=== PATIENT | male | born 1940 | race American Indian/Alaskan Native ===

== ENCOUNTER 2017-12-20 17:48 | Inpatient (IN) ==
[2017-12-20] MEDS ORDERED: LACTATED RINGERS 1,000 ML IV ONE (17:55)
[2017-12-20] MEDS ORDERED: methylPREDNISolone SOD SUCC 125 MG/2 ML VIAL IV ONE (18:06)
[2017-12-20] MEDS ORDERED: IPRATROPIUM/ALBUTEROL 3 ML AMPUL.NEB NEB ONE (18:06)
[2017-12-20] MEDS ORDERED: PIPERACILLIN SODIUM/TAZOBACTAM 3.375 GM in DEXTROSE 5% IN WATER 50 ML IV ONE (18:11)
--- NOTE | 2017-12-20 18:19 | Emergency Department Note ---
SOB HPI - General Chief Complaint: Shortness of Breath/Dyspnea Stated Complaint: sob, pos asp Time Seen by Provider: 12/20/17 18:07 Source: patient Mode of arrival: wheelchair Limitations: no limitations - History of Present Illness 77-year-old male presents with shortness of breath that has been worsening since yesterday. Apparently 2 days ago he was eating and choked on some food. He has a history of aspiration pneumonia. He states yesterday he started having significant shortness of breath. He states the last couple months he has had unexplained weight loss and is trying to eat but cannot get proper nutrition. 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 Verdin says he needs to eat small amounts frequently. He has emphysema and is very thin. He states he has shortness of breath on exertion and he also has some swelling in his lower extremities at this time. He denies any abdominal pain. He states he is getting dizzy when he stands up. He comes from [facility] and he was seen there today having low blood pressures. He is tachycardic at this time, tachypnea, and has an increased temperature at 99.8. This patient screens for sepsis. He is also had a productive frothy cough for the last couple of days - Related Data Home Medications Medication Instructions Recorded Confirmed Tiotropium [place] [Spiriva] 18 mcg INH DAILY 01/11/15 12/20/17 ergocalciferol (vitamin D2) 50,000 50,000 unit PO QWEEK 11/28/16 12/20/17 unit capsule Albuterol Sulfate [Proair Hfa] 8.5 gm IH Q4-6HP PRN 12/20/17 12/20/17 Docusate Sodium [Colace] 100 mg PO DAILY 12/20/17 12/20/17 Polyethylene Glycol 1000 500 gm PO QDAY 12/20/17 12/20/17 [Polyethylene Glycol] guaiFENesin/DEXTROMETHORPHAN 10 ml PO Q4-6HP PRN 12/20/17 12/20/17 [Guaiasorb Dm Liquid] Previous Rx's Medication Instructions Recorded omeprazole 40 mg capsule,delayed 40 mg PO QDAY #30 cap 07/25/17 release Allergies Allergy/AdvReac Type Severity Reaction Status Date / Time No Known Drug Allergies Allergy Verified 08/21/17 15:34 Review of Systems All systems ED: reviewed and negative except as stated. Past Medical History - Past Medical History Medical history: Reports: COPD (Emphysema with multiple lung nodules), other ( Poor nutrition, underweight, GERD, constipation, inguinal hernia). Denies: CHF Psychiatric history: Reports: no psych history Surgical history ED: Reports: non-contributory Family history: Reports: non-contributory - Social History smoking status: Former smoker Physical Exam Limitations: no limitations General appearance: alert, in distress (Tachypnea ), other (Underweight) Head: atraumatic Eye: Present: normal appearance. Absent: conjunctival injection Neck: Present: full ROM Chest: Present: normal inspection, symmetric chest wall rise Respiratory: Present: respiratory distress, wheezes (all alvarado), accessory muscle use Cardiovascular: Present: tachycardia, normal heart sounds Abdominal: Present: soft, normal bowel sounds. Absent: tenderness Extremities: Present: pedal edema (Around ankles no tibial edema) Neurological: Present: alert, oriented X3 Psychiatric: Present: normal affect, normal mood Skin: Present: warm, dry, intact Course Vital Signs Temperature 99.8 F H 12/20/17 17:48 Pulse Rate 117 H 12/20/17 17:48 Respiratory Rate 44 H 12/20/17 17:48 Blood Pressure 113/79 12/20/17 17:48 Pulse Oximetry (%) 91 12/20/17 17:48 Temperature 98.4 F 12/20/17 19:47 Pulse Rate 116 H 12/20/17 19:14 Respiratory Rate 26 H 12/20/17 19:14 Blood Pressure 109/72 12/20/17 19:14 Pulse Oximetry (%) 96 12/20/17 19:14 Shortness of Breath/Dyspnea - [facility] Narrative Medical decision making narrative: To the patient's severe emphysema, tachypnea, tachycardia, and increased work of breathing she will be admitted. Possible pneumonia on his chest x-ray. He was feeling better after Solu-Medrol and DuoNeb. At one time he needed 1 L of oxygen due to low oxygen saturations but when sitting up he was able to maintain around 95% - Lab Data Lab results reviewed: Yes I reviewed the patient's lab results. Result diagrams: 12/20/17 18:09 12/20/17 18:09 Lab Results 12/20/17 12/20/17 12/20/17 Range/Units 18:09 18:09 18:09 WBC 4.9 (4.5-11.0) K/mcL RBC 4.46 L (4.50-5.90) M/mcL Hgb 13.7 (13.5-16.5) g/dL Hct 41.0 (41.0-55.0) % MCV 91.8 (80.0-100.0) fL MCH 30.8 (26.0-34.0) pg MCHC 33.6 (31.0-36.0) g/dL RDW 14.4 (11.5-14.5) % Plt Count 249 (140-440) K/mcL MPV 7.6 (7.4-10.4) fL Total Counted 100 Seg Neutrophils % 85 H (38-78) % Band Neutrophils % 3 (0-10) % Lymphocytes % 9 L (15-49) % Monocytes % (Manual) 3 (1-12) % Platelet Estimate Normal (NORMAL) RBC Morphology Normal (NORMAL) VBG Lactic Acid 1.9 (0.5-2.2) mmol/L Sodium 135 (133-145) mmol/L Potassium 4.0 (3.3-5.1) mmol/L Chloride 95 L (96-108) mmol/L Carbon Dioxide 30 (22-30) mmol/L Anion Gap 10.0 (8-16) BUN 7 L (8-23) mg/dl Creatinine 0.6 L (0.7-1.2) mg/dl GFR Calculation 97 Glucose 88 (70-105) mg/dL Calcium 9.0 (8.6-10.4) mg/dl Total Bilirubin 0.9 (0.0-1.0) mg/dL AST 101 H (0-37) U/l ALT 191 H (0-40) U/l Alkaline Phosphatase 107 (39-117) U/L Troponin T (0-0.03) ng/ml NT-Pro-B Natriuret Pep 184.4 (0-450) pg/ml Total Protein 7.0 (5.9-8.4) gm/dL Albumin 3.4 (3.2-5.2) gm/dL Globulin 3.6 (2.2-3.7) gm/dL Albumin/Globulin Ratio 0.9 L (1.0-2.3) Procalcitonin (<0.10) ng/mL 12/20/17 12/20/17 Range/Units 18:09 18:09 WBC (4.5-11.0) K/mcL RBC (4.50-5.90) M/mcL Hgb (13.5-16.5) g/dL Hct (41.0-55.0) % MCV (80.0-100.0) fL MCH (26.0-34.0) pg MCHC (31.0-36.0) g/dL RDW (11.5-14.5) % Plt Count (140-440) K/mcL MPV (7.4-10.4) fL Total Counted Seg Neutrophils % (38-78) % Band Neutrophils % (0-10) % Lymphocytes % (15-49) % Monocytes % (Manual) (1-12) % Platelet Estimate (NORMAL) RBC Morphology (NORMAL) VBG Lactic Acid (0.5-2.2) mmol/L Sodium (133-145) mmol/L Potassium (3.3-5.1) mmol/L Chloride (96-108) mmol/L Carbon Dioxide (22-30) mmol/L Anion Gap (8-16) BUN (8-23) mg/dl Creatinine (0.7-1.2) mg/dl GFR Calculation Glucose (70-105) mg/dL Calcium (8.6-10.4) mg/dl Total Bilirubin (0.0-1.0) mg/dL AST (0-37) U/l ALT (0-40) U/l Alkaline Phosphatase (39-117) U/L Troponin T < 0.01 (0-0.03) ng/ml NT-Pro-B Natriuret Pep (0-450) pg/ml Total Protein (5.9-8.4) gm/dL Albumin (3.2-5.2) gm/dL Globulin (2.2-3.7) gm/dL Albumin/Globulin Ratio (1.0-2.3) Procalcitonin < 0.10 (<0.10) ng/mL - Radiology Data Radiology results reviewed: Yes I reviewed the patient's radiology results. 1. Severe emphysematous change and findings consistent with pulmonary fibrosis 2. Increased apical and basilar parenchymal densities. Progressive pulmonary fibrosis or superimposed pneumonia possible. Clinical correlation follow-up radiograph is necessary. - EKG Data EKG attestation: Yes I reviewed and interpreted this EKG. EKG results narrative: Sinus tachycardia with no ischemic changes. Disposition Pt seen by [employer]BASS[employer]OR/PA only: No Clinical Impression: Acute exacerbation of chronic obstructive airways disease, Hypoxia Disposition: Xfer As Inpt ([facility]) Condition: Fair Referrals: Barrington Zhang MD [Primary Care Provider] -
[2017-12-20] MEDS ORDERED: ACETAMINOPHEN 650 MG SUPP.RECT PR ONE (18:21)
--- NOTE | 2017-12-20 18:27 | XRay Report ---
INDICATION: Dyspnea. Tachypnea. History of emphysema. TECHNIQUE: AP chest x-ray, portable semiupright COMPARISON: Previous examinations dated 10/24/2017, 06/19/2017, 09/19/2016. FINDINGS: Severe emphysema and probable pulmonary fibrosis. Increased parenchymal density in the right and left lung apices and at both lung bases. Findings may be due to progressive pulmonary fibrosis but superimposed pneumonia is possible. Clinical correlation follow-up radiographs recommended. No change in heart size. No evidence for significant pleural effusion. IMPRESSION: 1. Severe emphysematous change and findings consistent with pulmonary fibrosis 2. Increased apical and basilar parenchymal densities. Progressive pulmonary fibrosis or superimposed pneumonia possible. Clinical correlation follow-up radiograph is necessary. Interpreted and Authenticated by: Adolfo Chavez 12/20/17
[2017-12-20 18:53] LABS: Mean Cell Volume 91.8 fL (80.0-100.0); Mean Corpuscular HGB Conc 33.6 g/dL (31.0-36.0); Mean Corpuscular Hemoglobin 30.8 pg (26.0-34.0); Platelet Count 249 K/mcL (140-440); RBC 4.46 M/mcL (4.50-5.90); Red Cell Distribution Width 14.4 % (11.5-14.5)
[2017-12-20 19:20] LABS: ALT/SGPT 191 U/l (0-40); Albumin 3.4 gm/dL (3.2-5.2); Albumin/Globulin Ratio 0.9 (1.0-2.3); Alkaline Phosphatase 107 U/L (39-117); Blood Urea Nitrogen 7 mg/dl (8-23); proBNP 184.4 pg/ml (0-450)
[2017-12-20] MEDS ORDERED: 0.9 % SODIUM CHLORIDE 1,000 ML IV SCH (19:45)
[2017-12-20 20:10] LABS: Band Neutrophils % 3 % (0-10); Lymphocytes % 9 % (15-49); Monocytes % (Manual) 3 % (1-12); Platelet Estimate NORMAL (NORMAL); RBC Morphology NORMAL (NORMAL); Segmented Neutrophils % 85 % (38-78)
[2017-12-20] MEDS ORDERED: ONDANSETRON 4 MG/2 ML VIAL IV PRN (22:41)
[2017-12-20] MEDS ORDERED: ACETAMINOPHEN 325 MG TABLET PO PRN (22:41)
--- NOTE | 2017-12-20 22:47 | Internal Med History&Physical ---
Medical - H&P: [facility] Patient information: Note initiated : 12/20/17 at 10:44 pm Service Date, if different from initiated Date: [] Patient: Yoel Valdes 77 y/o M admitted on 12/20/17 for sob, pos asp. Chief Complaint: [Dyspnea, acute respiratory distress] History of present illness: Mr. Vadles is a 77 year old M Ex-smoker with heavy occupational exposure to secondhand smoke (worked in [employer] ) leading to COPD, emphysema, and lung fibrosis. He developed acute shortness of breath at rest and on exertion today, from what he thought to be a choking episode couple days ago, and seek help at the [facility] urgent care. He was tachypneic, tachycardic, low-grade temp, and hypotensive in the low 100s systolic BP, and was brought here for further evaluation. He was found to have orthopneic hypoxemia on room air with hyperventilate feature. His family also reported that he has significant weight loss in the last month due to dysphagia. He also noted constipation and pedal ankle edema at the same time, and has a recent nonproductive cough with frothy phlegm/sputums , especially when he wakes up. He was given aerosol treatment, IV Solu-Medrol and started on IV Zosyn after blood cultures. His room air oxygenation is marginal at rest on sitting upright, and desats with exertion or lying flat/down. Chest x-ray shows progressive pulmonary fibrosis or superimposed pneumonia possible. His PCP is Dr. Zhang, and will consult Dr. Verdin, his wood handler. All systems: reviewed and no additional remarkable complaints except as stated - Constitutional Constitutional: Present: fatigue, weakness, weight loss - Cardiovascular Cardiovascular: Present: dyspnea, lightheadedness, pedal edema, rapid heart rate - Respiratory Respiratory: Present: cough, dyspnea, dyspnea on exertion, excessive phlegm production - Gastrointestinal Gastrointestinal: Present: constipation, dysphagia. Absent: coffee ground emesis, cramping, nausea, vomiting - Neurological Neurological: Present: abnormal hearing, dizziness Medical - H&P: PMH Medical history: Emphysema, COPD, lung fibrosis, GERD, right inguinal hernia, lung nodule, STDs Surgical history: Cholecystectomy Family history: reviewed and not pertinent Functional capacity: independent ambulation Smoking status: Former smoker Time spent discussing smoking cessation with patient: 3 to 10 minutes Drug use: none Alcohol use: none Medical - H&P: Meds Home Medications Medication Instructions Recorded Confirmed Type Tiotropium [place] [Spiriva] 18 mcg INH DAILY 01/11/15 12/20/17 History ergocalciferol (vitamin D2) 50,000 50,000 unit PO QWEEK 11/28/16 12/20/17 History unit capsule omeprazole 40 mg capsule,delayed 40 mg PO QDAY #30 cap 07/25/17 12/20/17 Rx release Albuterol Sulfate [Proair Hfa] 8.5 gm IH Q4-6HP PRN 12/20/17 12/20/17 History Docusate Sodium [Colace] 100 mg PO DAILY 12/20/17 12/20/17 History Polyethylene Glycol 1000 500 gm PO QDAY 12/20/17 12/20/17 History [Polyethylene Glycol] guaiFENesin/DEXTROMETHORPHAN 10 ml PO Q4-6HP PRN 12/20/17 12/20/17 History [Guaiasorb Dm Liquid] Allergies Allergy/AdvReac Type Severity Reaction Status Date / Time No Known Drug Allergies Allergy Verified 08/21/17 15:34 Medical - H&P: Exam - Constitutional Vitals: Temp Pulse Resp BP Pulse Ox 98.4 F 92 H 18 105/77 99 12/20/17 19:47 12/20/17 22:11 12/20/17 22:11 12/20/17 22:11 12/20/17 22:11 General appearance: mild distress, thin - Head Head exam: Present: atraumatic, normocephalic Additional comments: Very thin, cachectic looking - Eye Eye exam: Present: EOMI, PERRL Pupils: Present: PERRL - ENT ENT exam: Present: mucous membranes dry Additional comments: few oral white patches on tongue - Neck Neck exam: Present: full ROM - Respiratory Respiratory exam: Present: decreased breath sounds Additional comments: Bilateral fibrotic crackles, hyperexpanded lung alvarado - Cardiovascular Cardiovascular exam: Present: +S1, +S2, tachycardia - GI/Abdominal GI/Abdominal exam: Present: normal bowel sounds, soft. Absent: guarding, mass, tenderness - Extremities Exam Extremities exam: Present: pedal edema. Absent: calf tenderness - Neurological Exam Neurological exam: Present: alert, CN II-XII intact, oriented X3 Medical - H&P: Reslt - Labs CBC & Chem 7: 12/21/17 03:52 12/21/17 03:52 Labs: Short CBC 12/20/17 Range/Units 18:09 WBC 4.9 (4.5-11.0) K/mcL Hgb 13.7 (13.5-16.5) g/dL Hct 41.0 (41.0-55.0) % Plt Count 249 (140-440) K/mcL BMP 12/20/17 18:09 Sodium 135 Potassium 4.0 Chloride 95 L Carbon Dioxide 30 BUN 7 L Creatinine 0.6 L Glucose 88 Calcium 9.0 Cardiac Enzymes 12/20/17 Range/Units 18:09 Troponin T < 0.01 (0-0.03) ng/ml Liver Function 12/20/17 Range/Units 18:09 Total Bilirubin 0.9 (0.0-1.0) mg/dL AST 101 H (0-37) U/l ALT 191 H (0-40) U/l Alkaline Phosphatase 107 (39-117) U/L Albumin 3.4 (3.2-5.2) gm/dL ABG#2 : 7.45/ 46 pCO2/ 65 pO2/ 32 HCO3/ BE 7/ 93% SO2 RA ABG#1 : 7.56/ 33 pCO2/ 46 pO2/ 29.5 HCO3/ BE 7.3/ 88% SO2 RA - ABG Interpretation -: ABG interpreted by me Additional comments: Hypoxemia at 93% room air pulse ox saturation, with 65 mmHg PO2; and 46 mmHg headache 88% room air pulse ox saturation. - EKG Data -: EKG Reviewed by Myself Rate: tachycardia - EKG Data Prior EKG available for review: no EKG comments: 12/20/17 22:30 Sinus tachycardia, rate 115 Medical - H&P: A/P (1) Hypoxia Problem details: Likely combination of progressive fibrosis, emphysema/acute COPD exacerbation with possible aspiration pneumonia. Current visit: Yes Status: Acute We will check pre-and post ambulatory oxygenation, may need to set up home oxygen. Follow-up on blood cultures, continue Zosyn IV antibiotics for now. Consult Dr. Verdin, his wood handler, in the morning. (2) Acute exacerbation of chronic obstructive airways disease Current visit: Yes Status: Acute Short course of Solu-Medrol, assess and set up for home oxygenation if needed, DuoNeb aerosols, Pulmicort, repeat chest x-ray monitoring, iv zosyn Abx for possibly aspiration pneumonia (3) Sinus tachycardia Problem details: Likely from worsening emphysema/COPD and hypoxia Current visit: Yes Status: Acute Check & replace electrolytes, ESR, evaluate for infection. May benefit from low dose metoprolol when euvolumic, & blood pressure tolerates (4) Gastroesophageal reflux disease Problem details: Possibly resulting in aspiration pneumonia, will need swallowing evaluation for aspiration Current visit: No Status: Chronic Resume and consider increases PPI or H2 leonora (5) Pedal edema Problem details: Likely compromise cardiac function secondary to tachycardia and hypoxia Current visit: Yes Status: Acute As above, JAYANT hose, and continue monitoring (6) Emphysema of lung Problem details: Progressive worsening, history of occupational exposure to second-hand smoking Current visit: Yes Status: Chronic As above (7) Fibrosis lung Problem details: Progressive worsening, history of occupational exposure to second-hand smoking Current visit: Yes Status: Chronic As above Medical - H&P: Qual - VTE Documentation of Mechanical Device: Graduated compression elastic hosiery Deep Vein Thrombosis/Pulmonary Embolism Present on Admission: No
[2017-12-20] MEDS: DEXTROSE 5%-1/2NS 1,000 ML IV SCH (23:36)
[2017-12-20] MEDS: 0.9 % SODIUM CHLORIDE 10 ML SYRINGE IV SCH (23:37)
[2017-12-20 23:52] LABS: Appearance,Urine HAZY; Bilirubin,Urine NEG (NEG); Color,Urine YELLOW; Glucose,Urine (UA) NEGATIVE (NEG); Leukocyte Esterase,Urine NEG /uL (NEG); Protein,Urine NEG (NEG); Specific Gravity,Urine 1.011 (1.000-1.035); Urine Blood NEG mg/dL (<0.03)
[2017-12-21] MEDS ORDERED: methylPREDNISolone SOD SUCC 125 MG/2 ML VIAL ONE (00:15)
[2017-12-21] MEDS: methylPREDNISolone SOD SUCC 40 MG/ML VIAL IV SCH ×5 (00:21→23:31)
[2017-12-21] MEDS: PIPERACILLIN SODIUM/TAZOBACTAM 3.375 GM in DEXTROSE 5% IN WATER 50 ML IV SCH ×5 (00:22→23:43)
[2017-12-21] MEDS: IPRATROPIUM/ALBUTEROL 3 ML AMPUL.NEB NEB SCH ×5 (01:58→22:43)
[2017-12-21] MEDS ORDERED: IPRATROPIUM 2.5 ML AMPUL.NEB ONE (02:01)
[2017-12-21 05:37] LABS: Basophils # (Auto) 0 K/mcL (0.0-0.3); Basophils % (Auto) 0 % (0.0-2.0); Eosinophils # (Auto) 0 K/mcL (0.0-0.7); Eosinophils % (Auto) 0 % (0.0-7.0); Granulocytes % (Auto) 92.6 % (38.0-78.0); Lymphocytes # (Auto) 0.2 K/mcL (1.5-4.8); Lymphocytes % (Auto) 6.7 % (15.5-49.0); Mean Cell Volume 90.8 fL (80.0-100.0); Mean Corpuscular Hemoglobin 30.9 pg (26.0-34.0); Monocytes # (Auto) 0 K/mcL (0.1-0.9); Monocytes % (Auto) 0.7 % (1.0-12.0); Platelet Count 243 K/mcL (140-440); RBC 4.21 M/mcL (4.50-5.90); Red Cell Distribution Width 14.6 % (11.5-14.5)
[2017-12-21] MEDS: 0.9 % SODIUM CHLORIDE 10 ML SYRINGE IV SCH ×3 (05:40→20:57)
[2017-12-21 06:02] LABS: ALT/SGPT 165 U/l (0-40); Albumin 3.1 gm/dL (3.2-5.2); Albumin/Globulin Ratio 0.9 (1.0-2.3); Alkaline Phosphatase 102 U/L (39-117); Blood Urea Nitrogen 8 mg/dl (8-23)
[2017-12-21] MEDS: BUDESONIDE 0.5 MG/2 ML AMPUL.NEB NEB SCH ×2 (07:06→19:52)
[2017-12-21] MEDS: DOCUSATE SODIUM 100 MG CAPSULE PO SCH ×2 (08:16→20:56)
[2017-12-21] MEDS: FAMOTIDINE/PF 20 MG/2 ML VIAL IV SCH ×2 (08:16→20:56)
--- NOTE | 2017-12-21 09:35 | Internal Med Progress Note ---
Medical - PN: Subj Patient information: Note initiated : 12/21/17 at 9:35 am Service Date, if different from initiated Date: [] Patient: Yoel Valdes 77 y/o M admitted on 12/20/17 for sob, pos asp. Chief Complaint: [] Interval history: 77 year old M ex-smoker with heavy secondhand smoking exposure(worked & hungout in [place]) to leading to pulmonary fibrosis, emphysema, and COPD. He is malnourish, appears cachectic, and was admitted last night for episodic acute hypoxic respiratory decompensation, for which (patient thought) were related to his recent choking episodes with possible aspiration. Infection workup was initiated, due to his hypotensive, tachypneic tachycardic presentation with low- grade temp. He apparently experiencing significant weight loss recently due to dysphagia, complains of constipation and noted pedal ankle edema. Repeated ABGs & chest x-ray on admission are consistent with very marginal pulmonary oxygenation. He is started on IV Solu-Medrol, IV Zosyn antibiotic after blood cultures, and aerosol treatments, with presumed to be acute COPD exacerbation with possible aspiration. 12/21/2017 He feels 100% better this morning after overnight treatment I found from nursing staff that his riveter automobile brakes Dr. Verdin is out of town, not available for consultation. We'll proceed to check his pre-and post-ambulatory pulse ox saturations, continue steroid Solu-Medrol, aerosol and Pulmicort treatments, and IV Zosyn, Speech evaluation for aspiration/dysphagia, nutrition support with dietitian evaluation and nutritional supplements, check and replace electrolytes, gentle IV fluid, consider echocardiogram in regard to his sinus tachycardia. - Constitutional Vitals: Vital Signs Temp Pulse Resp BP Pulse Ox 97.5 F 86 18 110/70 98 12/21/17 04:00 12/21/17 07:08 12/21/17 07:08 12/21/17 04:00 12/21/17 07:08 Period Temp Pulse Resp BP Sys/Lemus Pulse Ox Last 24 Hr 97.5 F-99.8 F 86-120 15-44 92-133/62-116 89-99 Intake and Output 12/20/17 12/21/17 12/21/17 21:59 05:59 13:59 Intake Total 2049 50 / 50 Output Total 500 / 500 200 / 200 Balance 2049 -500 / -500 -150 / -150 Weight 108 lb 108 lb Intake & Output: Intake & Output 12/20/17 12/21/17 12/21/17 21:59 05:59 13:59 Intake Total 2049 50 / 50 Output Total 500 / 500 200 / 200 Balance 2049 -500 / -500 -150 / -150 Weight 108 lb 108 lb Intake: IV 2049 50 / 50 Sodium Chloride 0.9% 1,000 ml @ 1000 / 1000 250 mls/hr IV .Q4H SAMANTHA Rx#: [id number] Lactated Ringers 1,000 ml @ 1000 / 1000 Wide Open IV BOLUS ONE Rx#: [id number] Zosyn 3.375 gm In Dextrose 5% 50 / 50 50 / 50 in Water 50 ml @ 100 mls/hr IV Q6H SAMANTHA Rx#:[id number] Output: Void Amount 500 / 500 200 / 200 General appearance: disheveled, thin Exam: Cachectic, skinny looking - Head Head exam: Present: atraumatic, normocephalic - Eye Eye exam: Present: EOMI Pupils: Present: PERRL - ENT ENT exam: Present: mucous membranes dry Additional comments: Few oral candidiasis - Expanded ENT Exam Mouth exam: Present: tongue hypertrophy - Neck Neck exam: Present: full ROM - Respiratory Respiratory exam: Present: decreased breath sounds Additional comments: Decreased air movements, bilaterally, hyperexpanded lung alvarado - Cardiovascular Cardiovascular exam: Present: +S1, +S2, tachycardia Additional comments: Distant heart sounds - GI/Abdominal GI/Abdominal exam: Present: diminished bowel sounds Additional comments: Skinny malnourished - Extremities Exam Extremities exam: Present: full ROM, pedal edema - Neurological Exam Neurological exam: Present: alert, CN II-XII intact, oriented X3 Medical - PN: Obj Da - Labs CBC & Chem 7: 12/21/17 03:52 12/21/17 03:52 Labs: Abnormal Lab Results 12/21/17 12/21/17 12/20/17 03:52 03:52 22:41 WBC 2.7 L RBC 4.21 L Hgb 13.0 L Hct 38.3 L RDW 14.6 H Gran % 92.6 H Lymph % (Auto) 6.7 L [place] % (Auto) 0.7 L Lymph # (Auto) 0.2 L [place] # (Auto) 0 L Seg Neutrophils % Lymphocytes % ESR Chloride BUN Creatinine 0.6 L Glucose 155 H AST 86 H ALT 165 H Albumin 3.1 L Albumin/Globulin Ratio 0.9 L Urine Ketones 5/tr A Urine Urobilinogen 4.0 A 12/20/17 12/20/17 12/20/17 18:09 18:09 18:09 WBC RBC 4.46 L Hgb Hct RDW Gran % Lymph % (Auto) [place] % (Auto) Lymph # (Auto) [place] # (Auto) Seg Neutrophils % 85 H Lymphocytes % 9 L ESR 47 H Chloride 95 L BUN 7 L Creatinine 0.6 L Glucose AST 101 H ALT 191 H Albumin Albumin/Globulin Ratio 0.9 L Urine Ketones Urine Urobilinogen Meds: Medications Acetaminophen (Tylenol) 650 mg PO Q6HP PRN PRN Reason: PAIN/FEVER > 101 Albuterol/Ipratropium (Duoneb) 3 ml NEB Q6HRT [facility] Last Admin: 12/21/17 07:06 Dose: 3 ml Budesonide (Pulmicort) 0.5 mg NEB Q12 [facility] Last Admin: 12/21/17 07:06 Dose: 0.5 mg Docusate Sodium (Colace) 100 mg PO BID [facility] Last Admin: 12/21/17 08:16 Dose: 100 mg Famotidine (Pepcid) 20 mg IV Q12 [facility] Last Admin: 12/21/17 08:16 Dose: 20 mg Dextrose/Sodium Chloride (Dextrose 5%-1/2ns Iv Solution) 1,000 mls @ 50 mls/hr IV .Q20H [facility] Last Admin: 12/20/17 23:36 Dose: 50 mls/hr Piperacillin Sod/Tazobactam (Sod 3.375 gm/ Dextrose) 50 mls @ 100 mls/hr IV Q6H [facility] Last Infusion: 12/21/17 07:10 Dose: Infused Methylprednisolone Sodium Succinate (Solu-Medrol) 40 mg IV Q6 [facility] Last Admin: 12/21/17 08:17 Dose: 40 mg Ondansetron HCl (Zofran) 4 mg IV Q6HP PRN PRN Reason: Nausea And Vomiting Sodium Chloride (Saline Flush) 10 ml IV Q8 [facility] Last Admin: 12/21/17 05:40 Dose: Not Given Medical - PN: A/P - Time Spent With Patient Total time spent is greater than 50% in coordination of care (as documented) at patient's floor/unit and/or counseling patient: 25 - 35 minutes (1) Hypoxia Problem details: Likely combination of progressive fibrosis, emphysema/acute COPD exacerbation with possible aspiration pneumonia. Status: Acute Assessment and plan: Check pre-and post-ambulatory pulse ox saturation, and assessment for home O2 needs. Continue IV Zosyn antibiotics, blood culture results pending Current Visit: Yes (2) Acute exacerbation of chronic obstructive airways disease Status: Acute Assessment and plan: Short course of Solu-Medrol, assess and set up for home oxygenation needs, DuoNeb aerosols, Pulmicort, repeat chest x-ray monitoring, iv zosyn Abx for possibly aspiration pneumonia Current Visit: Yes (3) Sinus tachycardia Problem details: Likely from worsening emphysema/COPD and hypoxia Status: Acute Assessment and plan: Check & replace electrolytes, ESR, evaluate for infection, d-dimer, gentle IV fluid if positive orthostatics. May benefit from low dose metoprolol when euvolumic, & blood pressure tolerates Consider Echo in the morning Current Visit: Yes (4) Gastroesophageal reflux disease Problem details: Possibly resulting in aspiration pneumonia, will need swallowing evaluation for aspiration Status: Chronic Assessment and plan: Speech eval for aspiration, increase H2 leonora/PPI, aspiration prophylaxis with HOB >45 degree. He is going for a pre-arranged CT abdomen and pelvis with oral and IV contrast ( scheduled by His PCP Dr. Zhang) evaluate for his cachexia and dysphagia symptoms. Current Visit: Yes (5) Pedal edema Problem details: Likely compromise cardiac function secondary to tachycardia and hypoxia Status: Acute Current Visit: Yes (6) Caloric malnutrition Status: Acute Assessment and plan: Dietitian evaluation, nutrition supplements, check B12 and folate and thiamine, multivitamin supplements Current Visit: Yes (7) Emphysema of lung Problem details: Progressive worsening, history of occupational exposure to second-hand smoking Status: Chronic Assessment and plan: COPD treatments, Zosyn for pulmonary infections, short course of Solu-Medrol, pulmonary consult with Dr. Verdin Current Visit: Yes (8) Fibrosis lung Problem details: Progressive worsening, history of occupational exposure to second-hand smoking Status: Chronic Assessment and plan: As above Current Visit: Yes Medical - PN: Qual - VTE Deep Vein Thrombosis/Pulmonary Embolism Present on Admission: No
[2017-12-21] MEDS ORDERED: IOPAMIDOL 100 ML BOTTLE IV ONE (13:14)
--- NOTE | 2017-12-21 13:59 | Cat Scan Report ---
CLINICAL INFORMATION: Possible aspiration pneumonia. Abnormal liver function tests COMPARISON: Chest x-ray dated 12/20/2017. Abdominal and pelvic CT scan dated 01/03/2013. TECHNIQUE: Axial images were obtained through the abdomen and pelvis. Sagittally and coronally reformatted images. 70 mL contrast material injected intravenously. Oral contrast material was given FINDINGS: Suboptimal evaluation as there is very little fat for contrast. Patient is extremely cachectic. Lung bases are abnormal. Patient has a history of severe emphysema. I suspect pulmonary fibrosis as well with bilateral, bibasilar honeycombing. This is worse 01/03/2013. No focal mass. No evidence of neoplasm. No pleural fluid. No pericardial fluid. There is a low density lesion within the left lobe of the liver. This is stable and is consistent with a benign cyst. No new hepatic mass. Liver contour is smooth. No ascites. There are surgical clips which are consistent with previous cholecystectomy. There is gas in this region. This is probably within colon. There is no pneumoperitoneum. There are no intraperitoneal gas bubbles elsewhere in the abdomen. No intrahepatic gas. No pneumobilia. No focal fluid collection or evidence for abscess. Common bile duct is dilated to 8 mm. No intrahepatic bile duct dilatation. Spleen is negative. No splenomegaly. Normal enhancement of the splenic portal veins. No pancreatic mass. No evidence for pancreatitis. Adrenal glands are negative. Kidneys are negative. No hydronephrosis. No solid mass. There is small left lower pole cysts. Urinary bladder is markedly distended. There are are densities in the dependent portion of the bladder consistent with bladder calculi. There are probably 3 stones. These measure 5 mm, 10 mm, and 16 mm in size. No detectable bladder mass. Prostate is heterogeneous in there are multiple calcifications. No detectable colonic mass. No mechanical small bowel obstruction. No diverticulitis or appendicitis. Severe atherosclerotic calcification of the abdominal aorta. Abdominal aorta measures 2.3 cm in cross-sectional diameter. There are prominent hemorrhoidal arteries and there may be some contrast material within the rectal lumen. I cannot exclude gastrointestinal bleeding. Clinical correlation is necessary. If rectal bleeding is present angiography. Helpful. Multilevel degenerative disc disease. No compression deformities. Sacrum and pelvis are negative. Dr. Romero was called with these results, 12/21/2017, 1345. IMPRESSION: 1. Severe cachexia 2. Abnormal lung bases. Patient has a history of emphysema. Pulmonary fibrosis with honeycombing is suspected. Findings are worse than on 01/03/2013 3. Distended bladder and bladder calculi. A definite bladder mass is not identified 4. Previous cholecystectomy. Benign hepatic cyst. No new intrahepatic abnormality 5. Severe atherosclerotic disease 6. Prominent hemorrhoidal arteries. There may be contrast material within the rectal lumen. Clinical correlation for rectal bleeding necessary The exam was performed using radiation dose optimization techniques including, but not limited to, automated exposure control, adjustment of the mA and/or kV according to patient size and use of iterative reconstruction technique. Interpreted and Authenticated by: Adolfo Chavez 12/21/17
[2017-12-21 15:28] LABS: Vitamin B12 1288 pg/ml (232-1245)
[2017-12-21] MEDS: DEXTROSE 5%-1/2NS 1,000 ML IV SCH ×2 (18:05→23:31)
[2017-12-21] MEDS ORDERED: METOPROLOL TARTRATE 25 MG TABLET ONE (23:26)
[2017-12-21] MEDS: METOPROLOL TARTRATE 25 MG TABLET PO SCH (23:31)
[2017-12-22] MEDS: IPRATROPIUM/ALBUTEROL 3 ML AMPUL.NEB NEB SCH ×6 (03:31→23:10)
[2017-12-22] MEDS: PIPERACILLIN SODIUM/TAZOBACTAM 3.375 GM in DEXTROSE 5% IN WATER 50 ML IV SCH ×4 (05:38→23:45)
[2017-12-22] MEDS: 0.9 % SODIUM CHLORIDE 10 ML SYRINGE IV SCH ×3 (05:38→22:24)
[2017-12-22] MEDS: methylPREDNISolone SOD SUCC 40 MG/ML VIAL IV SCH ×4 (05:38→23:46)
[2017-12-22 05:40] LABS: Prealbumin 7.1 mg/dl (20-40)
[2017-12-22 06:06] LABS: Basophils # (Auto) 0 K/mcL (0.0-0.3); Basophils % (Auto) 0 % (0.0-2.0); Eosinophils # (Auto) 0 K/mcL (0.0-0.7); Eosinophils % (Auto) 0 % (0.0-7.0); Granulocytes % (Auto) 96.8 % (38.0-78.0); Lymphocytes # (Auto) 0.2 K/mcL (1.5-4.8); Lymphocytes % (Auto) 1.8 % (15.5-49.0); Mean Cell Volume 91.9 fL (80.0-100.0); Mean Corpuscular HGB Conc 33.8 g/dL (31.0-36.0); Mean Corpuscular Hemoglobin 31.1 pg (26.0-34.0); Monocytes # (Auto) 0.1 K/mcL (0.1-0.9); Monocytes % (Auto) 1.4 % (1.0-12.0); Platelet Count 248 K/mcL (140-440); RBC 3.82 M/mcL (4.50-5.90); Red Cell Distribution Width 14.3 % (11.5-14.5)
[2017-12-22 06:38] LABS: ALT/SGPT 205 U/l (0-40); Albumin 3.1 gm/dL (3.2-5.2); Alkaline Phosphatase 90 U/L (39-117); Blood Urea Nitrogen 13 mg/dl (8-23)
[2017-12-22] MEDS: DOCUSATE SODIUM 100 MG CAPSULE PO SCH ×2 (07:19→20:31)
[2017-12-22] MEDS: BUDESONIDE 0.5 MG/2 ML AMPUL.NEB NEB SCH ×2 (07:55→19:16)
[2017-12-22] MEDS: FAMOTIDINE/PF 20 MG/2 ML VIAL IV SCH ×2 (08:49→20:31)
[2017-12-22] MEDS: METOPROLOL TARTRATE 25 MG TABLET PO SCH ×2 (08:50→20:31)
--- NOTE | 2017-12-22 10:12 | Internal Med Progress Note ---
Medical - PN: Subj Patient information: Note initiated : 12/22/17 at 10:11 am Service Date, if different from initiated Date: [] Patient: Yoel Valdes 77 y/o M admitted on 12/20/17 for sob, pos asp. Chief Complaint: [] Interval history: 77 year old M ex-smoker with heavy secondhand smoking exposure(worked & hungout in [place]) leading to pulmonary fibrosis, emphysema, and COPD. He is malnourish , appears cachectic, and was admitted 12/20/17 night for episodic acute hypoxic respiratory decompensation, for which (patient thought) were related to his recent choking episodes with possible aspiration. Infection workup was initiated, due to his hypotensive, tachypneic tachycardic presentation with low- grade temp. He apparently experiencing significant weight loss recently due to dysphagia, complains of constipation and noted pedal ankle edema. Repeated ABGs & chest x-ray on admission are consistent with very marginal pulmonary oxygenation. He is started on IV Solu-Medrol, IV Zosyn antibiotic after blood cultures, and aerosol treatments, with presumed to be acute COPD exacerbation with possible aspiration. 12/21/2017 He feels 100% better this morning after overnight treatment I found from nursing staff that his senior solutions engineer Dr. Verdin is out of town, not available for consultation. We'll proceed to check his pre-and post-ambulatory pulse ox saturations, continue steroid Solu-Medrol, aerosol and Pulmicort treatments, and IV Zosyn, Speech evaluation for aspiration/dysphagia, nutrition support with dietitian evaluation and nutritional supplements, check and replace electrolytes, gentle IV fluid, consider echocardiogram in regard to his sinus tachycardia. 12/22/2017 Sitting on chair, off oxygen, finished breakfast, wordy but no specific complains CT abdomen and pelvis with contrast 12/21/17 shows severely cachexia, worsening pulmonary fibrosis with honeycombing, Severe atherosclerotic disease (abdominal aorta 2.3 cm cross-section), prominent hemorrhoidal arteries, bladder calculi with distention, and benign hepatic cyst. Tolerating gentle IV fluid (orthostatic positive on last evening), metoprolol addition, IV Zosyn, Solu-Medrol, Pulmicort and DuoNeb. His pulmonary status has improved with increase air movements and room air pulse oximetry. Check BNP peptide, venous Doppler, reticulocyte count, guaiac stool, add supplements: multivitamin, thiamine, folate, (high level of B12). DC Solu Medrol after 48 hours (midnight tonight or early in am), replace neutrophosx1. - Constitutional Vitals: Vital Signs Temp Pulse Resp BP Pulse Ox 98.5 F 79 16 116/86 97 12/22/17 04:00 12/22/17 08:07 12/22/17 08:07 12/22/17 04:00 12/22/17 07:56 Period Temp Pulse Resp BP Sys/Lemus Pulse Ox Last 24 Hr 98.5 F-99.5 F 79-110 16-28 93-120/65-88 90-99 Intake and Output 12/21/17 12/22/17 12/22/17 21:59 05:59 13:59 Intake Total 50 / 50 50 / 50 50 / 50 Output Total 250 / 250 350 / 350 Balance -200 / -200 -300 / -300 50 / 50 Weight 108 lb 8 oz Intake & Output: Intake & Output 12/21/17 12/22/17 12/22/17 21:59 05:59 13:59 Intake Total 50 / 50 50 / 50 50 / 50 Output Total 250 / 250 350 / 350 Balance -200 / -200 -300 / -300 50 / 50 Weight 108 lb 8 oz Intake: IV 50 / 50 50 / 50 50 / 50 Zosyn 3.375 gm In Dextrose 5% 50 / 50 50 / 50 50 / 50 in Water 50 ml @ 100 mls/hr IV Q6H [facility] Rx#:[id number] Output: Void Amount 250 / 250 350 / 350 Other: Meal Dinner Percent of Meal Consumed 50% # Voids 1 1 # Bowel Movements 1 General appearance: thin - Head Head exam: Present: atraumatic, normocephalic - Eye Eye exam: Present: EOMI, PERRL Pupils: Present: normal accommodation - ENT ENT exam: Present: mucous membranes dry - Neck Neck exam: Present: full ROM - Respiratory Respiratory exam: Present: decreased breath sounds Additional comments: Some increases in air movements, bilaterally, although still has diminished breath sounds, hyperexpanded lung alvarado - Cardiovascular Cardiovascular exam: Present: +S1, +S2. Absent: gallop, JVD, rubs - GI/Abdominal GI/Abdominal exam: Present: normal bowel sounds, soft. Absent: rebound, tenderness - Extremities Exam Extremities exam: Present: full ROM, pedal edema. Absent: calf tenderness, Josh's sign - Neurological Exam Neurological exam: Present: alert, CN II-XII intact, oriented X3 - Skin Skin exam: Present: dry, intact Additional comments: Very skinny Medical - PN: Obj Da - Labs CBC & Chem 7: 12/22/17 03:39 12/22/17 03:39 Labs: Abnormal Lab Results 12/22/17 12/22/17 12/22/17 03:39 03:39 03:39 WBC RBC 3.82 L Hgb 11.9 L Hct 35.1 L RDW Gran % 96.8 H Lymph % (Auto) 1.8 L [place] % (Auto) Gran # 9.3 H Lymph # (Auto) 0.2 L [place] # (Auto) Seg Neutrophils % Lymphocytes % ESR D-Dimer 0.89 H Chloride BUN Creatinine 0.6 L Glucose 128 H Calcium 8.4 L Phosphorus 2.6 L AST 130 H ALT 205 H Albumin 3.1 L Albumin/Globulin Ratio Prealbumin 7.1 L Vitamin B12 Urine Ketones Urine Urobilinogen 12/21/17 12/21/17 12/21/17 12:49 03:52 03:52 WBC RBC Hgb Hct RDW Gran % Lymph % (Auto) [place] % (Auto) Gran # Lymph # (Auto) [place] # (Auto) Seg Neutrophils % Lymphocytes % ESR 39 H D-Dimer Chloride BUN Creatinine 0.6 L Glucose 155 H Calcium Phosphorus AST 86 H ALT 165 H Albumin 3.1 L Albumin/Globulin Ratio 0.9 L Prealbumin Vitamin B12 1288 H Urine Ketones Urine Urobilinogen 12/21/17 12/20/17 12/20/17 03:52 22:41 18:09 WBC 2.7 L RBC 4.21 L Hgb 13.0 L Hct 38.3 L RDW 14.6 H Gran % 92.6 H Lymph % (Auto) 6.7 L [place] % (Auto) 0.7 L Gran # Lymph # (Auto) 0.2 L [place] # (Auto) 0 L Seg Neutrophils % Lymphocytes % ESR 47 H D-Dimer Chloride BUN Creatinine Glucose Calcium Phosphorus AST ALT Albumin Albumin/Globulin Ratio Prealbumin Vitamin B12 Urine Ketones 5/tr A Urine Urobilinogen 4.0 A 12/20/17 12/20/17 18:09 18:09 WBC RBC 4.46 L Hgb Hct RDW Gran % Lymph % (Auto) [place] % (Auto) Gran # Lymph # (Auto) [place] # (Auto) Seg Neutrophils % 85 H Lymphocytes % 9 L ESR D-Dimer Chloride 95 L BUN 7 L Creatinine 0.6 L Glucose Calcium Phosphorus AST 101 H ALT 191 H Albumin Albumin/Globulin Ratio 0.9 L Prealbumin Vitamin B12 Urine Ketones Urine Urobilinogen Meds: Medications Acetaminophen (Tylenol) 650 mg PO Q6HP PRN PRN Reason: PAIN/FEVER > 101 Albuterol/Ipratropium (Duoneb) 3 ml NEB Q4HRT [facility] Last Admin: 12/22/17 07:55 Dose: 3 ml Budesonide (Pulmicort) 0.5 mg NEB Q12 [facility] Last Admin: 12/22/17 07:55 Dose: 0.5 mg Docusate Sodium (Colace) 100 mg PO BID [facility] Last Admin: 12/22/17 07:19 Dose: Not Given Ergocalciferol (Drisdol) 50,000 unit PO QWEEK [facility] Famotidine (Pepcid) 20 mg IV Q12 [facility] Last Admin: 12/22/17 08:49 Dose: 20 mg Piperacillin Sod/Tazobactam (Sod 3.375 gm/ Dextrose) 50 mls @ 100 mls/hr IV Q6H [facility] Last Infusion: 12/22/17 06:10 Dose: Infused Dextrose/Sodium Chloride (Dextrose 5%-1/2ns Iv Solution) 1,000 mls @ 75 mls/hr IV .[id number] [facility] Last Admin: 12/21/17 23:31 Dose: 75 mls/hr Methylprednisolone Sodium Succinate (Solu-Medrol) 40 mg IV Q6 [facility] Last Admin: 12/22/17 05:38 Dose: 40 mg Metoprolol Tartrate (Lopressor) 25 mg PO BID [facility] Last Admin: 12/22/17 08:50 Dose: 25 mg Ondansetron HCl (Zofran) 4 mg IV Q6HP PRN PRN Reason: Nausea And Vomiting Sodium Chloride (Saline Flush) 10 ml IV Q8 [facility] Last Admin: 12/22/17 05:38 Dose: Not Given Medical - PN: A/P - Time Spent With Patient Total time spent is greater than 50% in coordination of care (as documented) at patient's floor/unit and/or counseling patient: 25 - 35 minutes (1) Hypoxia Problem details: Likely combination of progressive fibrosis, emphysema/acute COPD exacerbation with possible aspiration pneumonia. Status: Acute Assessment and plan: Not qualify for home O2 based on his pre-and post-ambulatory pulse ox saturation. improving with solumedrol (finishing) & pulmicort, Continue IV Zosyn antibiotics , blood culture results pending Current Visit: Yes (2) Acute exacerbation of chronic obstructive airways disease Status: Acute Assessment and plan: improving with (finishing) Short course of Solu-Medrol, not qualify for home oxygenation needs, DuoNeb aerosols, Pulmicort, ?repeat chest x-ray monitoring, iv zosyn Abx for possibly aspiration pneumonia Current Visit: Yes (3) Anemia Problem details: Anemia as rehydration approach euvolemic status Status: Suspected Assessment and plan: Check reticulocyte count, stool guaiac screening, does not appear to be iron deficiency with normocytic normochromic features. May have forward heart failure Current Visit: Yes (4) Sinus tachycardia Problem details: Likely from worsening emphysema/COPD and hypoxia Status: Acute Assessment and plan: Resolving with added metoprolol (Tolerating), and gentle IV fluid overnight for positive orthostatics. Normal electrolytes, elevated d-dimer & ESR, on Zosyn IV for recent aspiration Check venous Doppler for elevated d-dimer, already on JAYANT hose for DVT prophylaxis Neutra-Phos replacement, recheck orthostatics Current Visit: Yes (5) Gastroesophageal reflux disease Problem details: Possibly resulting in aspiration pneumonia, will need swallowing evaluation for aspiration Status: Chronic Assessment and plan: Awaiting Speech eval for aspiration, increase H2 leonora/PPI, aspiration prophylaxis with HOB >45 degree. He is going for a pre-arranged CT abdomen and pelvis with oral and IV contrast ( scheduled by His PCP Dr. Zhang) evaluate for his cachexia and dysphagia symptoms. Current Visit: Yes (6) Pedal edema Problem details: Likely compromise cardiac function secondary to tachycardia and hypoxia Status: Acute Assessment and plan: Check venous Doppler, d-dimer positive. May have forward heart failure Current Visit: Yes (7) Caloric malnutrition Status: Acute Assessment and plan: Dietitian evaluation, nutrition supplements, check B12 and folate and thiamine, multivitamin supplements, regular diet for higher calorie. B12 level high normal, pending thiamine, RBC-folate levels, will start multivitamin, folic acid, thiamine supplements Current Visit: Yes (8) Emphysema of lung Problem details: Progressive worsening, history of occupational exposure to second-hand smoking Status: Chronic Assessment and plan: COPD treatments, Zosyn for pulmonary infections, short course of Solu-Medrol, pulmonary consult with Dr. Verdin Lung functions appeared to improve with acute COPD treatment treatments: Solu- Medrol, Pulmicort and bronchodilator aerosols. Current Visit: Yes (9) Fibrosis lung Problem details: Progressive worsening, history of occupational exposure to second-hand smoking Status: Chronic Assessment and plan: As above, poor prognosis on Pulmonary Fibrosis Current Visit: Yes Medical - PN: Qual - Stroke Symptom Onset Unknown: No - VTE Deep Vein Thrombosis/Pulmonary Embolism Present on Admission: No
[2017-12-22 11:20] LABS: proBNP 477.9 pg/ml (0-450)
[2017-12-22] MEDS ORDERED: MULTIVITAMINS,THERAPEUTIC 1 ML ORAL.SOL PO SCH (11:30)
[2017-12-22 12:10] LABS: Retic Absolute 0.7 % (0.5-1.5)
[2017-12-22] MEDS: FOLIC ACID 1 MG TABLET PO SCH (12:30)
[2017-12-22] MEDS: MULTIVIT,THER IRON,CA,FA & MIN 1 TABLET PO SCH (12:31)
[2017-12-22] MEDS: THIAMINE 100 MG TABLET PO SCH (12:31)
--- NOTE | 2017-12-22 13:35 | Ultrasound Report ---
CLINICAL INFORMATION: Bilateral leg pain and swelling TECHNIQUE: Grayscale and color flow Doppler spectral imaging COMPARISON: None. FINDINGS: Negative examination for deep venous thrombosis. Common femoral veins, superficial femoral veins, popliteal veins are negative. Calf veins are negative. Greater and lesser saphenous veins are negative. IMPRESSION: 1. Negative bilateral lower extremity deep venous ultrasound 2. Negative examination for deep venous thrombosis Interpreted and Authenticated by: Adolfo Chavez 12/22/17
[2017-12-22] MEDS ORDERED: NEUTRA PHOS 1 PACKET PO ONE (15:00)
[2017-12-22] MEDS: DEXTROSE 5%-1/2NS 1,000 ML IV SCH (16:02)
[2017-12-23] MEDS: IPRATROPIUM/ALBUTEROL 3 ML AMPUL.NEB NEB SCH ×6 (03:44→23:10)
[2017-12-23 04:49] LABS: ALT/SGPT 196 U/l (0-40); Albumin 3.3 gm/dL (3.2-5.2); Alkaline Phosphatase 101 U/L (39-117); Blood Urea Nitrogen 11 mg/dl (8-23); Haptoglobin 139 mg/dl (30-200)
[2017-12-23] MEDS: PIPERACILLIN SODIUM/TAZOBACTAM 3.375 GM in DEXTROSE 5% IN WATER 50 ML IV SCH ×3 (05:34→17:33)
[2017-12-23] MEDS: 0.9 % SODIUM CHLORIDE 10 ML SYRINGE IV SCH ×5 (05:35→22:00)
[2017-12-23] MEDS: DOCUSATE SODIUM 100 MG CAPSULE PO SCH ×2 (07:22→20:33)
[2017-12-23 07:24] LABS: Basophils # (Auto) 0 K/mcL (0.0-0.3); Basophils % (Auto) 0 % (0.0-2.0); Eosinophils # (Auto) 0 K/mcL (0.0-0.7); Eosinophils % (Auto) 0 % (0.0-7.0); Granulocytes % (Auto) 96.9 % (38.0-78.0); Lymphocytes # (Auto) 0.2 K/mcL (1.5-4.8); Mean Cell Volume 91.8 fL (80.0-100.0); Mean Corpuscular HGB Conc 33.3 g/dL (31.0-36.0); Mean Corpuscular Hemoglobin 30.5 pg (26.0-34.0); Monocytes # (Auto) 0.1 K/mcL (0.1-0.9); Monocytes % (Auto) 1.1 % (1.0-12.0); Platelet Count 250 K/mcL (140-440); RBC 4.19 M/mcL (4.50-5.90); Red Cell Distribution Width 14.7 % (11.5-14.5)
[2017-12-23] MEDS: BUDESONIDE 0.5 MG/2 ML AMPUL.NEB NEB SCH ×2 (08:24→19:50)
[2017-12-23] MEDS: METOPROLOL TARTRATE 25 MG TABLET PO SCH ×2 (09:17→20:51)
[2017-12-23] MEDS: THIAMINE 100 MG TABLET PO SCH (09:17)
[2017-12-23] MEDS: MULTIVIT,THER IRON,CA,FA & MIN 1 TABLET PO SCH (09:17)
[2017-12-23] MEDS: FOLIC ACID 1 MG TABLET PO SCH (09:23)
[2017-12-23] MEDS: FAMOTIDINE/PF 20 MG/2 ML VIAL IV SCH ×2 (09:24→20:34)
--- NOTE | 2017-12-23 12:31 | Internal Med Progress Note ---
Medical - PN: Subj Patient information: Note initiated : 12/23/17 at 12:30 pm Service Date, if different from initiated Date: [] Patient: Yoel Valdes 77 y/o M admitted on 12/20/17 for sob, pos asp. Chief Complaint: [] Interval history: 77 year old M ex-smoker with heavy secondhand smoking exposure(worked & hungout in [place]) leading to pulmonary fibrosis, emphysema, and COPD. He is malnourish , appears cachectic, and was admitted 12/20/17 night for episodic acute hypoxic respiratory decompensation, for which (patient thought) were related to his recent choking episodes with possible aspiration. Infection workup was initiated, due to his hypotensive, tachypneic tachycardic presentation with low- grade temp. He apparently experiencing significant weight loss recently due to dysphagia, complains of constipation and noted pedal ankle edema. Repeated ABGs & chest x-ray on admission are consistent with very marginal pulmonary oxygenation. He is started on IV Solu-Medrol, IV Zosyn antibiotic after blood cultures, and aerosol treatments, with presumed to be acute COPD exacerbation with possible aspiration. 12/21/2017 He feels 100% better this morning after overnight treatment I found from nursing staff that his handkerchief cutter Dr. Verdin is out of town, not available for consultation. We'll proceed to check his pre-and post-ambulatory pulse ox saturations, continue steroid Solu-Medrol, aerosol and Pulmicort treatments, and IV Zosyn, Speech evaluation for aspiration/dysphagia, nutrition support with dietitian evaluation and nutritional supplements, check and replace electrolytes, gentle IV fluid, consider echocardiogram in regard to his sinus tachycardia. 12/22/2017 Sitting on chair, off oxygen, finished breakfast, wordy but no specific complains CT abdomen and pelvis with contrast 12/21/17 shows severely cachexia, worsening pulmonary fibrosis with honeycombing, Severe atherosclerotic disease (abdominal aorta 2.3 cm cross-section), prominent hemorrhoidal arteries, bladder calculi with distention, and benign hepatic cyst. Tolerating gentle IV fluid (orthostatic positive on last evening), metoprolol addition, IV Zosyn, Solu-Medrol, Pulmicort and DuoNeb. His pulmonary status has improved with increase air movements and room air pulse oximetry. Check BNP peptide, venous Doppler, reticulocyte count, guaiac stool, add supplements: multivitamin, thiamine, folate, (high level of B12). DC Solu Medrol after 48 hours (midnight tonight or early in am), replace neutrophosx1. 12/23/17 venous Dopplers of lower extremities are negative for DVT, overnight he still tachycardic at times. --2-D echo to evaluate cardiac functions and hemodynamics, --Anemia appears stable, normal coagulation, work up so far suggest hypoproliferative anemia, --Awaiting speech evaluation for aspiration. - Constitutional Vitals: Vital Signs Temp Pulse Resp BP Pulse Ox 98 F 83 16 96/59 97 12/23/17 12:00 12/23/17 11:40 12/23/17 12:00 12/23/17 12:00 12/23/17 12:00 Period Temp Pulse Resp BP Sys/Lemus Pulse Ox Last 24 Hr 98 F-98.9 F 82-107 16-28 96-121/59-76 95-98 Intake and Output 12/22/17 12/23/17 12/23/17 21:59 05:59 13:59 Intake Total 1650 / 1650 290 / 290 1400 / 1400 Output Total 725 / 725 Balance 1650 / 1650 -435 / -435 1400 / 1400 Weight 107 lb 8 oz Intake & Output: Intake & Output 12/22/17 12/23/17 12/23/17 21:59 05:59 13:59 Intake Total 1650 / 1650 290 / 290 1400 / 1400 Output Total 725 / 725 Balance 1650 / 1650 -435 / -435 1400 / 1400 Weight 107 lb 8 oz Intake: IV 1050 / 1050 50 / 50 1050 / 1050 Dextrose 5%-1/2Ns IV Solution 1 1000 / 1000 ,000 ml @ 75 mls/hr IV .[id number] SAMANTHA Rx#:[id number] Zosyn 3.375 gm In Dextrose 5% 50 / 50 50 / 50 50 / 50 in Water 50 ml @ 100 mls/hr IV Q6H SMAANTHA Rx#:[id number] Oral 600 / 600 240 / 240 350 / 350 Output: Void Amount 725 / 725 Other: Meal Dinner Percent of Meal Consumed 75% Feeding Ability Independent Stool Size Moderate Stool Color Brown Stool Consistency Normal for Patient # Voids 4 2 # Bowel Movements 1 General appearance: no acute distress, thin - Head Head exam: Present: atraumatic, normocephalic - Eye Eye exam: Present: EOMI Pupils: Present: normal accommodation, PERRL - ENT ENT exam: Present: mucous membranes moist - Neck Neck exam: Present: full ROM. Absent: lymphadenopathy, meningismus, tenderness - Respiratory Respiratory exam: Present: wheezes Additional comments: Few bibasilar fibrotic rales, no accessory muscle use. - Cardiovascular Cardiovascular exam: Present: +S1, +S2. Absent: gallop, rubs - GI/Abdominal GI/Abdominal exam: Present: normal bowel sounds. Absent: guarding, rebound, tenderness - Extremities Exam Extremities exam: Present: pedal edema. Absent: calf tenderness, tenderness - Neurological Exam Neurological exam: Present: alert, oriented X3 Additional comments: Poor hearing - Skin Skin exam: Present: dry, warm Medical - PN: Obj Da - Labs CBC & Chem 7: 12/25/17 04:15 12/25/17 04:15 Labs: Abnormal Lab Results 12/23/17 12/23/17 12/22/17 03:38 03:38 10:32 WBC RBC 4.19 L Hgb 12.8 L Hct 38.4 L RDW 14.7 H Gran % 96.9 H Lymph % (Auto) 2.0 L [place] % (Auto) Gran # 10.0 H Lymph # (Auto) 0.2 L [place] # (Auto) Seg Neutrophils % Lymphocytes % ESR D-Dimer Chloride Carbon Dioxide 32 H Anion Gap 6.0 L BUN Creatinine 0.5 L Glucose 123 H Calcium Phosphorus AST 99 H ALT 196 H NT-Pro-B Natriuret Pep 477.9 H Albumin Albumin/Globulin Ratio Prealbumin Vitamin B12 Urine Ketones Urine Urobilinogen 12/22/17 12/22/17 12/22/17 03:39 03:39 03:39 WBC RBC 3.82 L Hgb 11.9 L Hct 35.1 L RDW Gran % 96.8 H Lymph % (Auto) 1.8 L [place] % (Auto) Gran # 9.3 H Lymph # (Auto) 0.2 L [place] # (Auto) Seg Neutrophils % Lymphocytes % ESR D-Dimer 0.89 H Chloride Carbon Dioxide Anion Gap BUN Creatinine 0.6 L Glucose 128 H Calcium 8.4 L Phosphorus 2.6 L AST 130 H ALT 205 H NT-Pro-B Natriuret Pep Albumin 3.1 L Albumin/Globulin Ratio Prealbumin 7.1 L Vitamin B12 Urine Ketones Urine Urobilinogen 12/21/17 12/21/17 12/21/17 12:49 03:52 03:52 WBC RBC Hgb Hct RDW Gran % Lymph % (Auto) [place] % (Auto) Gran # Lymph # (Auto) [place] # (Auto) Seg Neutrophils % Lymphocytes % ESR 39 H D-Dimer Chloride Carbon Dioxide Anion Gap BUN Creatinine 0.6 L Glucose 155 H Calcium Phosphorus AST 86 H ALT 165 H NT-Pro-B Natriuret Pep Albumin 3.1 L Albumin/Globulin Ratio 0.9 L Prealbumin Vitamin B12 1288 H Urine Ketones Urine Urobilinogen 12/21/17 12/20/17 12/20/17 03:52 22:41 18:09 WBC 2.7 L RBC 4.21 L Hgb 13.0 L Hct 38.3 L RDW 14.6 H Gran % 92.6 H Lymph % (Auto) 6.7 L [place] % (Auto) 0.7 L Gran # Lymph # (Auto) 0.2 L [place] # (Auto) 0 L Seg Neutrophils % Lymphocytes % ESR 47 H D-Dimer Chloride Carbon Dioxide Anion Gap BUN Creatinine Glucose Calcium Phosphorus AST ALT NT-Pro-B Natriuret Pep Albumin Albumin/Globulin Ratio Prealbumin Vitamin B12 Urine Ketones 5/tr A Urine Urobilinogen 4.0 A 12/20/17 12/20/17 18:09 18:09 WBC RBC 4.46 L Hgb Hct RDW Gran % Lymph % (Auto) [place] % (Auto) Gran # Lymph # (Auto) [place] # (Auto) Seg Neutrophils % 85 H Lymphocytes % 9 L ESR D-Dimer Chloride 95 L Carbon Dioxide Anion Gap BUN 7 L Creatinine 0.6 L Glucose Calcium Phosphorus AST 101 H ALT 191 H NT-Pro-B Natriuret Pep Albumin Albumin/Globulin Ratio 0.9 L Prealbumin Vitamin B12 Urine Ketones Urine Urobilinogen Meds: Medications Acetaminophen (Tylenol) 650 mg PO Q6HP PRN PRN Reason: PAIN/FEVER > 101 Albuterol/Ipratropium (Duoneb) 3 ml NEB Q4HRT SAMANTHA Last Admin: 12/23/17 11:34 Dose: 3 ml Budesonide (Pulmicort) 0.5 mg NEB Q12 SMAANTHA Last Admin: 12/23/17 08:24 Dose: 0.5 mg Docusate Sodium (Colace) 100 mg PO BID [facility] Last Admin: 12/23/17 07:22 Dose: Not Given Ergocalciferol (Drisdol) 50,000 unit PO We@0900 [facility] Famotidine (Pepcid) 20 mg IV Q12 [facility] Last Admin: 12/23/17 09:24 Dose: 20 mg Folic Acid (Folic Acid) 1 mg PO DAILY [facility] Last Admin: 12/23/17 09:23 Dose: 1 mg Piperacillin Sod/Tazobactam (Sod 3.375 gm/ Dextrose) 50 mls @ 100 mls/hr IV Q6H [facility] Last Infusion: 12/23/17 07:22 Dose: Infused Iron Carb/Multivit/[place]/Folic Acid (Multivitamin W/Minerals) 1 tab PO DAILY [facility] Last Admin: 12/23/17 09:17 Dose: 1 tab Metoprolol Tartrate (Lopressor) 25 mg PO BID [facility] Last Admin: 12/23/17 09:17 Dose: 25 mg Ondansetron HCl (Zofran) 4 mg IV Q6HP PRN PRN Reason: Nausea And Vomiting Sodium Chloride (Saline Flush) 10 ml IV Q8 [facility] Last Admin: 12/23/17 09:33 Dose: 10 ml Thiamine HCl (Vitamin B1) 100 mg PO DAILY [facility] Last Admin: 12/23/17 09:17 Dose: 100 mg Medical - PN: A/P - Time Spent With Patient Total time spent is greater than 50% in coordination of care (as documented) at patient's floor/unit and/or counseling patient: 25 - 35 minutes (1) Sinus tachycardia Problem details: Likely from worsening emphysema/COPD and hypoxia Status: Acute Assessment and plan: Resolving with added metoprolol (Tolerating), and had gentle IV fluid overnight for positive orthostatics. Normal electrolytes, elevated d-dimer & ESR, on Zosyn IV for recent aspiration negative venous Doppler for DVT (elevated d-dimer), already on JAYANT hose for DVT prophylaxis Neutra-Phos replacement, anemia shows up as he turn euvolumic. Current Visit: Yes (2) Anemia Problem details: Anemia as rehydration approach euvolemic status Status: Chronic Assessment and plan: Workup so far suggests Hypoproliferative, does not appear to be iron deficiency with normocytic normochromic features. May have forward heart failure, 2-D echo to evaluate hemodynamics and cardiac functions Current Visit: Yes (3) Pedal edema Problem details: Likely compromise cardiac function secondary to tachycardia and hypoxia Status: Acute Assessment and plan: negative venous Doppler, May have forward heart failure, awaiting 2-D echo to evaluate Current Visit: Yes (4) Hypoxia Problem details: Likely combination of progressive fibrosis, emphysema/acute COPD exacerbation with possible aspiration pneumonia. Status: Acute Assessment and plan: Not qualify for home O2 based on his pre-and post-ambulatory pulse ox saturation. improving with solumedrol (finishing) & pulmicort, Continue IV Zosyn antibiotics , blood culture results pending Current Visit: Yes (5) Acute exacerbation of chronic obstructive airways disease Status: Acute Assessment and plan: improving with (finishing) Short course of Solu-Medrol, not qualify for home oxygenation needs, DuoNeb aerosols, Pulmicort, He'll benefit from inhaled steroids, iv zosyn Abx for possibly aspiration pneumonia Current Visit: Yes (6) Caloric malnutrition Status: Acute Assessment and plan: Dietitian evaluation, nutrition supplements, checked B12 and folate and thiamine , multivitamin supplements, regular diet for higher calorie. B12 level high normal, pending thiamine, RBC-folate levels, started multivitamin , folic acid, thiamine supplements Current Visit: Yes (7) Emphysema of lung Problem details: Progressive worsening, history of occupational exposure to second-hand smoking Status: Chronic Assessment and plan: COPD treatments, Zosyn for pulmonary infections, short course of Solu-Medrol, pulmonary consult with Dr. Verdin, out of town. Lung functions improve with acute COPD treatment treatments: Solu-Medrol course CT abdomen and pelvis confirmed worsening fibrosis and honeycombing lesions at lung bases, he will benefit from outpatient Flovent or similar inhaled steroid. Current Visit: Yes (8) Gastroesophageal reflux disease Problem details: Possibly resulting in aspiration pneumonia, will need swallowing evaluation for aspiration Status: Chronic Assessment and plan: Awaiting Speech eval for aspiration, increase H2 leonora/PPI, aspiration prophylaxis with HOB >45 degree. Had pre-arranged CT abdomen and pelvis with oral and IV contrast (scheduled by His PCP Dr. Zhang) to evaluate abnormal LFTs & dysphagia symptoms. Current Visit: Yes (9) Fibrosis lung Problem details: Progressive worsening, history of occupational exposure to second-hand smoking Status: Chronic Assessment and plan: As above, poor prognosis on Pulmonary Fibrosis Current Visit: Yes Medical - PN: Qual - Stroke Symptom Onset Unknown: No - VTE Deep Vein Thrombosis/Pulmonary Embolism Present on Admission: No
[2017-12-24] MEDS: PIPERACILLIN SODIUM/TAZOBACTAM 3.375 GM in DEXTROSE 5% IN WATER 50 ML IV SCH ×4 (01:05→18:08)
[2017-12-24] MEDS: IPRATROPIUM/ALBUTEROL 3 ML AMPUL.NEB NEB SCH ×4 (03:46→20:00)
[2017-12-24 05:25] LABS: Basophils # (Auto) 0 K/mcL (0.0-0.3); Basophils % (Auto) 0.2 % (0.0-2.0); Eosinophils # (Auto) 0.1 K/mcL (0.0-0.7); Eosinophils % (Auto) 1.3 % (0.0-7.0); Lymphocytes # (Auto) 0.9 K/mcL (1.5-4.8); Lymphocytes % (Auto) 14.6 % (15.5-49.0); Mean Cell Volume 92.7 fL (80.0-100.0); Mean Corpuscular HGB Conc 33.2 g/dL (31.0-36.0); Mean Corpuscular Hemoglobin 30.8 pg (26.0-34.0); Monocytes # (Auto) 0.4 K/mcL (0.1-0.9); Monocytes % (Auto) 5.9 % (1.0-12.0); Platelet Count 248 K/mcL (140-440); RBC 4.07 M/mcL (4.50-5.90); Red Cell Distribution Width 15.1 % (11.5-14.5)
[2017-12-24] MEDS: 0.9 % SODIUM CHLORIDE 10 ML SYRINGE IV SCH ×3 (05:35→20:30)
[2017-12-24 05:36] LABS: ALT/SGPT 189 U/l (0-40); Alkaline Phosphatase 89 U/L (39-117); Blood Urea Nitrogen 13 mg/dl (8-23)
[2017-12-24] MEDS: BUDESONIDE 0.5 MG/2 ML AMPUL.NEB NEB SCH ×2 (07:57→20:00)
--- NOTE | 2017-12-24 08:24 | Internal Med Progress Note ---
Medical - PN: Subj Patient information: Note initiated : 12/24/17 at 8:24 am Service Date, if different from initiated Date: [] Patient: Yoel Valdes 77 y/o M admitted on 12/20/17 for sob, pos asp. Chief Complaint: [] Interval history: 77 year old M ex-smoker with heavy secondhand smoking exposure(worked & hungout in [place]) leading to pulmonary fibrosis, emphysema, and COPD. He is malnourish , appears cachectic, and was admitted 12/20/17 night for episodic acute hypoxic respiratory decompensation, for which (patient thought) were related to his recent choking episodes with possible aspiration. Infection workup was initiated, due to his hypotensive, tachypneic tachycardic presentation with low- grade temp. He apparently experiencing significant weight loss recently due to dysphagia, complains of constipation and noted pedal ankle edema. Repeated ABGs & chest x-ray on admission are consistent with very marginal pulmonary oxygenation. He is started on IV Solu-Medrol, IV Zosyn antibiotic after blood cultures, and aerosol treatments, with presumed to be acute COPD exacerbation with possible aspiration. 12/21/2017 He feels 100% better this morning after overnight treatment I found from nursing staff that his grease monkey Dr. Verdin is out of town, not available for consultation. We'll proceed to check his pre-and post-ambulatory pulse ox saturations, continue steroid Solu-Medrol, aerosol and Pulmicort treatments, and IV Zosyn, Speech evaluation for aspiration/dysphagia, nutrition support with dietitian evaluation and nutritional supplements, check and replace electrolytes, gentle IV fluid, consider echocardiogram in regard to his sinus tachycardia. 12/22/2017 Sitting on chair, off oxygen, finished breakfast, wordy but no specific complains CT abdomen and pelvis with contrast 12/21/17 shows severely cachexia, worsening pulmonary fibrosis with honeycombing, Severe atherosclerotic disease (abdominal aorta 2.3 cm cross-section), prominent hemorrhoidal arteries, bladder calculi with distention, and benign hepatic cyst. Tolerating gentle IV fluid (orthostatic positive on last evening), metoprolol addition, IV Zosyn, Solu-Medrol, Pulmicort and DuoNeb. His pulmonary status has improved with increase air movements and room air pulse oximetry. Check BNP peptide, venous Doppler, reticulocyte count, guaiac stool, add supplements: multivitamin, thiamine, folate, (high level of B12). Solu Medrol after 48 hours (midnight tonight or early in am), replace neutrophosx1. 12/23/17 venous Dopplers of lower extremities are negative for DVT, overnight he still tachycardic at times. --2-D echo to evaluate cardiac functions and hemodynamics, --Anemia appears stable, normal coagulation, work up so far suggest hypoproliferative anemia, --Awaiting speech evaluation for aspiration. 12/24/17 preliminary 2-D echo report significant with less than 50% IVC collapsed suggesting hepato-venous congestion, which likely responsible for his abnormal LFTs, pedal edema, tachycardia and arrhythmia, and worsen his hypoxia. He is to have a modified barium swallow in the morning to evaluate his aspiration risk. He will need to have anemia workup outpatient. He tolerates metoprolol with significant improvement in his tachyarrhythmia and can be off of telemetry. The plan to have him follow with his PCP (Barrington Bell) , outpatient physical therapy & work up at [facility] - Constitutional Vitals: Vital Signs Temp Pulse Resp BP Pulse Ox 98.2 F 70 20 119/75 98 12/24/17 03:44 12/24/17 08:03 12/24/17 08:03 12/24/17 03:44 12/24/17 08:03 Period Temp Pulse Resp BP Sys/Lemus Pulse Ox Last 24 Hr 97.8 F-99.6 F 68-94 16-30 87-119/59-89 95-98 Intake and Output 12/23/17 12/24/17 12/24/17 21:59 05:59 13:59 Intake Total 1290 / 1290 50 / 50 Output Total 450 / 450 Balance 840 / 840 50 / 50 Weight 112 lb 11.2 oz Intake & Output: Intake & Output 12/23/17 12/24/17 12/24/17 21:59 05:59 13:59 Intake Total 1290 / 1290 50 / 50 Output Total 450 / 450 Balance 840 / 840 50 / 50 Weight 112 lb 11.2 oz Intake: IV 50 / 50 50 / 50 Zosyn 3.375 gm In Dextrose 5% 50 / 50 50 / 50 in Water 50 ml @ 100 mls/hr IV Q6H SAMANTHA Rx#:[id number] Oral 1240 / 1240 Output: Void Amount 450 / 450 # of times incontinent of urine 0 / 0 Other: Meal Dinner Percent of Meal Consumed 100% Feeding Ability Independent # Voids 1 1 1 # Bowel Movements 1 1 - Head Head exam: Present: atraumatic, normocephalic - Eye Eye exam: Present: EOMI Pupils: Present: normal accommodation, PERRL - ENT ENT exam: Present: mucous membranes moist - Neck Neck exam: Present: full ROM. Absent: lymphadenopathy, meningismus - Respiratory Respiratory exam: Present: decreased breath sounds Additional comments: Significantly improved from on admission - Cardiovascular Cardiovascular exam: Present: +S1, +S2. Absent: gallop, rubs - GI/Abdominal GI/Abdominal exam: Present: diminished bowel sounds. Absent: guarding, rebound , tenderness - Extremities Exam Extremities exam: Present: full ROM, pedal edema. Absent: tenderness - Neurological Exam Neurological exam: Present: alert, CN II-XII intact, oriented X3 Additional comments: Except poor hearing - Skin Skin exam: Present: dry, intact Medical - PN: Obj Da - Labs CBC & Chem 7: 12/25/17 04:15 12/25/17 04:15 Labs: Abnormal Lab Results 12/24/17 12/24/17 12/23/17 03:54 03:54 03:38 RBC 4.07 L Hgb 12.5 L Hct 37.8 L RDW 15.1 H Gran % Lymph % (Auto) 14.6 L Gran # Lymph # (Auto) 0.9 L ESR D-Dimer Carbon Dioxide 35 H 32 H Anion Gap 5.0 L 6.0 L Creatinine 0.5 L Glucose 123 H Calcium 8.5 L Phosphorus AST 93 H 99 H ALT 189 H 196 H NT-Pro-B Natriuret Pep Albumin 3.0 L Prealbumin Vitamin B12 12/23/17 12/22/17 12/22/17 03:38 10:32 03:39 RBC 4.19 L Hgb 12.8 L Hct 38.4 L RDW 14.7 H Gran % 96.9 H Lymph % (Auto) 2.0 L Gran # 10.0 H Lymph # (Auto) 0.2 L ESR D-Dimer Carbon Dioxide Anion Gap Creatinine 0.6 L Glucose 128 H Calcium 8.4 L Phosphorus 2.6 L AST 130 H ALT 205 H NT-Pro-B Natriuret Pep 477.9 H Albumin 3.1 L Prealbumin 7.1 L Vitamin B12 12/22/17 12/22/17 12/21/17 03:39 03:39 12:49 RBC 3.82 L Hgb 11.9 L Hct 35.1 L RDW Gran % 96.8 H Lymph % (Auto) 1.8 L Gran # 9.3 H Lymph # (Auto) 0.2 L ESR D-Dimer 0.89 H Carbon Dioxide Anion Gap Creatinine Glucose Calcium Phosphorus AST ALT NT-Pro-B Natriuret Pep Albumin Prealbumin Vitamin B12 1288 H 12/21/17 03:52 RBC Hgb Hct RDW Gran % Lymph % (Auto) Gran # Lymph # (Auto) ESR 39 H D-Dimer Carbon Dioxide Anion Gap Creatinine Glucose Calcium Phosphorus AST ALT NT-Pro-B Natriuret Pep Albumin Prealbumin Vitamin B12 Meds: Medications Acetaminophen (Tylenol) 650 mg PO Q6HP PRN PRN Reason: PAIN/FEVER > 101 Last Admin: 12/23/17 20:32 Dose: 650 mg Albuterol/Ipratropium (Duoneb) 3 ml NEB Q4HRT [facility] Last Admin: 12/24/17 07:57 Dose: 3 ml Budesonide (Pulmicort) 0.5 mg NEB Q12 [facility] Last Admin: 12/24/17 07:57 Dose: 0.5 mg Docusate Sodium (Colace) 100 mg PO BID [facility] Last Admin: 12/23/17 20:33 Dose: 100 mg Ergocalciferol (Drisdol) 50,000 unit PO We@0900 [facility] Famotidine (Pepcid) 20 mg IV Q12 [facility] Last Admin: 12/23/17 20:34 Dose: 20 mg Folic Acid (Folic Acid) 1 mg PO DAILY [facility] Last Admin: 12/23/17 09:23 Dose: 1 mg Piperacillin Sod/Tazobactam (Sod 3.375 gm/ Dextrose) 50 mls @ 100 mls/hr IV Q6H [facility] Last Admin: 12/24/17 05:38 Dose: 100 mls/hr Iron Carb/Multivit/[place]/Folic Acid (Multivitamin W/Minerals) 1 tab PO DAILY [facility] Last Admin: 12/23/17 09:17 Dose: 1 tab Metoprolol Tartrate (Lopressor) 25 mg PO BID [facility] Last Admin: 12/23/17 20:51 Dose: Not Given Ondansetron HCl (Zofran) 4 mg IV Q6HP PRN PRN Reason: Nausea And Vomiting Sodium Chloride (Saline Flush) 10 ml IV Q8 [facility] Last Admin: 12/24/17 05:35 Dose: 10 ml Thiamine HCl (Vitamin B1) 100 mg PO DAILY [facility] Last Admin: 12/23/17 09:17 Dose: 100 mg Medical - PN: A/P - Time Spent With Patient Total time spent is greater than 50% in coordination of care (as documented) at patient's floor/unit and/or counseling patient: Greater than 35 minutes (1) Sinus tachycardia Problem details: Likely from worsening emphysema/COPD and hypoxia Status: Acute Assessment and plan: Resolving with added metoprolol (Tolerating), and gentle IV fluid overnight for positive orthostatics. Normal electrolytes, elevated d-dimer & ESR, on Zosyn IV for recent aspiration Neutra-Phos replacement, preliminary 2-D echo report less than 50% IVC collapsed suggesting hepato- venous congestion, which likely responsible for his abnormal LFTs, pedal edema, tachycardia and arrhythmia, and worsen his hypoxia. Current Visit: Yes (2) Hypoxia Problem details: Likely combination of progressive fibrosis, emphysema/acute COPD exacerbation with possible aspiration pneumonia. Status: Acute Assessment and plan: Not qualify for home O2 based on his pre-and post-ambulatory pulse ox saturation. improved with solumedrol (finishing) & pulmicort, IV Zosyn antibiotics, blood culture negative so far. Likely a combination of COPD, aspiration, emphysema and fibrosis. Current Visit: Yes (3) Acute exacerbation of chronic obstructive airways disease Status: Acute Assessment and plan: He'll benefit from inhaled steroids, d/c home on flovent, and oral cefuroxime Abx for possibly aspiration pneumonia Current Visit: Yes (4) Pedal edema Problem details: Likely compromise cardiac function secondary to tachycardia and hypoxia Status: Acute Assessment and plan: preliminary 2-D echo report significant with less than 50% IVC collapsed suggesting hepato-venous congestion. Also have hypoproliferative anemia, for which he should follow with his PCP for further outpatient workup Current Visit: Yes (5) Anemia Problem details: Anemia as rehydration approach euvolemic status Status: Chronic Assessment and plan: anemic as he turn euvolumic, workup so far suggest hypoproliferative anemia, Will need to be evaluated for iron deficiency anemia with normocytic normochromic features. He likely has some degree forward heart failure Current Visit: Yes (6) Gastroesophageal reflux disease Problem details: Possibly resulting in aspiration pneumonia, will need swallowing evaluation for aspiration Status: Chronic Assessment and plan: He'll have Modified Barium swallow to evaluate aspiration. Cefuroxime and oral antibiotics for Current Visit: Yes (7) Caloric malnutrition Status: Acute Assessment and plan: Dietitian evaluation, nutrition supplements, check B12 and folate and thiamine, multivitamin supplements, regular diet for higher calorie. B12 level high normal, pending thiamine, RBC-folate levels, will start multivitamin, folic acid, thiamine supplements Current Visit: Yes (8) Emphysema of lung Problem details: Progressive worsening, history of occupational exposure to second-hand smoking Status: Chronic Assessment and plan: Improve with acute COPD treatment treatments: Solu-Medrol, Pulmicort and bronchodilator aerosols; Zosyn for pulmonary infections, (pulmonary consult, Dr. eVrdin, out of town). He will need inhaled steroids to go home with, like Flovent Current Visit: Yes (9) Fibrosis lung Problem details: Progressive worsening, history of occupational exposure to second-hand smoking Status: Chronic Assessment and plan: As above, poor prognosis on Pulmonary Fibrosis Current Visit: Yes Medical - PN: Qual - Stroke Symptom Onset Unknown: No - VTE Deep Vein Thrombosis/Pulmonary Embolism Present on Admission: No
[2017-12-24] MEDS: FOLIC ACID 1 MG TABLET PO SCH (08:52)
[2017-12-24] MEDS: METOPROLOL TARTRATE 25 MG TABLET PO SCH ×2 (08:52→20:29)
[2017-12-24] MEDS: DOCUSATE SODIUM 100 MG CAPSULE PO SCH ×2 (08:52→20:29)
[2017-12-24] MEDS: THIAMINE 100 MG TABLET PO SCH (08:52)
[2017-12-24] MEDS: MULTIVIT,THER IRON,CA,FA & MIN 1 TABLET PO SCH (08:52)
[2017-12-24] MEDS: FAMOTIDINE/PF 20 MG/2 ML VIAL IV SCH ×2 (13:07→20:30)
[2017-12-24] MEDS ORDERED: ACETAMINOPHEN 325 MG TABLET PO PRN (17:35)
[2017-12-24] MEDS ORDERED: ONDANSETRON 4 MG/2 ML VIAL IV PRN (17:35)
[2017-12-24] MEDS ORDERED: IPRATROPIUM/ALBUTEROL 3 ML AMPUL.NEB NEB SCH (19:00)
[2017-12-25] MEDS: IPRATROPIUM/ALBUTEROL 3 ML AMPUL.NEB NEB SCH ×3 (00:28→13:09)
[2017-12-25] MEDS: PIPERACILLIN SODIUM/TAZOBACTAM 3.375 GM in DEXTROSE 5% IN WATER 50 ML IV SCH ×3 (00:28→11:40)
[2017-12-25 05:40] LABS: Basophils # (Auto) 0 K/mcL (0.0-0.3); Basophils % (Auto) 0.2 % (0.0-2.0); Eosinophils # (Auto) 0.4 K/mcL (0.0-0.7); Eosinophils % (Auto) 6.5 % (0.0-7.0); Granulocytes % (Auto) 76.7 % (38.0-78.0); Lymphocytes # (Auto) 0.6 K/mcL (1.5-4.8); Mean Cell Volume 93.3 fL (80.0-100.0); Mean Corpuscular Hemoglobin 30.8 pg (26.0-34.0); Monocytes # (Auto) 0.3 K/mcL (0.1-0.9); Monocytes % (Auto) 5.6 % (1.0-12.0); Platelet Count 233 K/mcL (140-440); RBC 4.03 M/mcL (4.50-5.90); Red Cell Distribution Width 14.8 % (11.5-14.5)
[2017-12-25] MEDS: 0.9 % SODIUM CHLORIDE 10 ML SYRINGE IV SCH ×2 (05:54→15:13)
[2017-12-25 06:11] LABS: ALT/SGPT 160 U/l (0-40); Albumin/Globulin Ratio 1.1 (1.0-2.3); Alkaline Phosphatase 83 U/L (39-117); Blood Urea Nitrogen 13 mg/dl (8-23)
[2017-12-25] MEDS: BUDESONIDE 0.5 MG/2 ML AMPUL.NEB NEB SCH (07:37)
[2017-12-25] MEDS ORDERED: FOLIC ACID 1 MG TABLET PO SCH (09:00)
[2017-12-25] MEDS ORDERED: THIAMINE 100 MG TABLET PO SCH (09:00)
[2017-12-25] MEDS: FAMOTIDINE/PF 20 MG/2 ML VIAL IV SCH (09:00)
[2017-12-25] MEDS ORDERED: MULTIVIT,THER IRON,CA,FA & MIN 1 TABLET PO SCH (09:00)
[2017-12-25] MEDS: DOCUSATE SODIUM 100 MG CAPSULE PO SCH (09:01)
[2017-12-25 09:03] LABS: Vitamin B1 131 nmol/L (78-185)
--- NOTE | 2017-12-25 09:04 | XRay Report ---
CLINICAL INFORMATION: Difficulty swallowing TECHNIQUE: 23 seconds fluoroscopy utilized. Modified barium swallow was performed by the speech pathologist COMPARISON: None. FINDINGS: There is significant vallecular and piriform sinus pooling. There was airway penetration and slight aspiration. Aspiration did not elicit coughing. IMPRESSION: Fluoroscopy provided for modified barium swallow Interpreted and Authenticated by: Adolfo Chavez 12/25/17
[2017-12-25] MEDS: METOPROLOL TARTRATE 25 MG TABLET PO SCH (10:27)
--- NOTE | 2017-12-25 17:56 | Discharge Summary ---
Medical - DS: Prov Patient information: Note initiated : 12/25/17 at 5:40 pm Service Date, if different from initiated Date: [] Patient: Yoel Valdes 77 y/o M admitted on 12/20/17 for sob, pos asp. Chief Complaint: [] Date of admission: 12/20/17 22:30 Discharge date: 12/25/17 Primary care physician: Barrington Zhang Admitting clinician: Kayley Romero Consults: 12/20/17 19:41 Consult to Physician [CONS] Stat Comment: Consulting Provider: Kayley Romero Reason For Exam: Physician to Consult 12/21/17 08:02 Consult to Physician [CONS] Routine Comment: Acute Dyspnea, hypoxia, known patient Consulting Provider: Hu Verdin Reason For Exam: Physician to Consult Attending physician on discharge: Kayley Romero Medical - DS: Meds - Discharge Medications Prescriptions: Cefuroxime Axetil [Cefuroxime] 500 mg PO Q12H 7 Days #14 tab Fluticasone Hfa 220Mcg [Flovent Hfa 220Mcg] 2 puff INH BID #1 inhaler Folic Acid 1 mg PO DAILY #30 tab Metoprolol Succinate 25 mg PO DAILY #30 tab.er.24h Multivit,Ther Iron,Ca,FA & Min [Multivitamin W/Minerals] 1 tab PO DAILY #30 tab Thiamine [Vitamin B1] 100 mg PO DAILY #30 tab Active and Home Medications: Home Medications Tiotropium [place] [Spiriva] 18 mcg INH DAILY 01/11/15 [History Confirmed Last Taken Unknown] ergocalciferol (vitamin D2) 50,000 unit capsule 50,000 unit PO QWEEK 11/28/16 [ History Confirmed 12/20/17 Last Taken Unknown] omeprazole 40 mg capsule,delayed release 40 mg PO QDAY #30 cap 07/25/17 [Rx Confirmed 12/20/17 Last Taken Unknown] Albuterol Sulfate [Proair Hfa] 8.5 gm IH Q4-6HP PRN 12/20/17 [History Confirmed 12/20/17 Last Taken Unknown] Docusate Sodium [Colace] 100 mg PO DAILY 12/20/17 [History Confirmed 12/20/17 Last Taken Unknown] Polyethylene Glycol 1000 [Polyethylene Glycol] 500 gm PO QDAY 12/20/17 [History Confirmed 12/20/17 Last Taken Unknown] guaiFENesin/DEXTROMETHORPHAN [Guaiasorb Dm Liquid] 10 ml PO Q4-6HP PRN 12/20/17 [History Confirmed 12/20/17 Last Taken Unknown] Medical - DS: Hosp Hospital course: Mr. Valdes is a 77 year old M ex-smoker with heavy secondhand smoking exposure( worked & hungout in [employer]) leading to pulmonary fibrosis, emphysema, and COPD. He is malnourish, appears cachectic, and was admitted 12/20/17 night for episodic acute hypoxic respiratory decompensation, for which (patient thought) were related to his recent choking episodes with possible aspiration. Infection workup was initiated, due to his hypotensive, tachypneic tachycardic presentation with low-grade temp. He apparently experiencing significant weight loss recently due to dysphagia, complains of constipation and noted pedal ankle edema. Repeated ABGs & chest x-ray on admission are consistent with very marginal pulmonary oxygenation. He is started on IV Solu-Medrol, IV Zosyn antibiotic after blood cultures, and aerosol treatments, with presumed to be acute COPD exacerbation with possible aspiration. 12/21/2017 He feels 100% better this morning after overnight treatment I found from nursing staff that his appian bpm developer Dr. Verdin is out of town, not available for consultation. We'll proceed to check his pre-and post-ambulatory pulse ox saturations, continue steroid Solu-Medrol, aerosol and Pulmicort treatments, and IV Zosyn, Speech evaluation for aspiration/dysphagia, nutrition support with dietitian evaluation and nutritional supplements, check and replace electrolytes, gentle IV fluid, consider echocardiogram in regard to his sinus tachycardia. 12/22/2017 Sitting on chair, off oxygen, finished breakfast, wordy but no specific complains CT abdomen and pelvis with contrast 12/21/17 shows severely cachexia, worsening pulmonary fibrosis with honeycombing, Severe atherosclerotic disease (abdominal aorta 2.3 cm cross-section), prominent hemorrhoidal arteries, bladder calculi with distention, and benign hepatic cyst. Tolerating gentle IV fluid (orthostatic positive on last evening), metoprolol addition, IV Zosyn, Solu-Medrol, Pulmicort and DuoNeb. His pulmonary status has improved with increase air movements and room air pulse oximetry. Check BNP peptide, venous Doppler, reticulocyte count, guaiac stool, add supplements: multivitamin, thiamine, folate, (high level of B12). Solu Medrol after 48 hours (midnight tonight or early in am), replace neutrophosx1. 12/23/17 venous Dopplers of lower extremities are negative for DVT, overnight he still tachycardic at times. --2-D echo to evaluate cardiac functions and hemodynamics, --Anemia appears stable, normal coagulation, work up so far suggest hypoproliferative anemia, --Awaiting speech evaluation for aspiration. 12/24/17 preliminary 2-D echo report significant with less than 50% IVC collapsed suggesting hepato-venous congestion, which likely responsible for his abnormal LFTs, pedal edema, tachycardia and arrhythmia, and worsen his hypoxia. He is to have a modified barium swallow in the morning to evaluate his aspiration risk. He will need to have anemia workup outpatient. He tolerates metoprolol with significant improvement in his tachyarrhythmia and can be off of telemetry. The plan to have him follow with his PCP (Barrington Bell) , outpatient physical therapy & work up at [facility] Discharge diagnosis: Hypoxia Secondary discharge diagnosis: Acute exacerbation of chronic obstructive airways disease Anemia Sinus tachycardia Pedal edema, hepato-venous congestion GERD/aspiration Malnutrition Emphysema, pulmonary fibrosis - Time Spent with Patient Total time spent providing and/or coordinating discharge services: Greater than 30 minutes Specific discharge activities: Activity as tolerated, bilateral JAYANT hose during the day Medical - DS: Exam - Constitutional Vitals: Vital Signs Temp Pulse Pulse Resp BP Pulse Ox 12/25/17 16:11 98.2 F 79 19 96/64 96 12/25/17 16:00 98.2 F 79 19 96/64 96 12/25/17 13:09 80 20 12/25/17 12:00 97.8 F 80 22 94/56 92 12/25/17 08:03 80 18 94 12/25/17 08:00 97.7 F 91 H 24 H 102/68 96 12/25/17 07:40 80 18 12/25/17 03:30 97.8 F 71 28 H 119/74 96 12/25/17 00:30 98.2 F 85 24 H 106/72 95 12/24/17 20:00 89 20 98 12/24/17 19:00 98.0 F 94 H 20 98/64 98 Intake and Output 12/25/17 12/25/17 12/25/17 05:59 13:59 21:59 Intake Total 150 / 150 100 / 100 Output Total 225 / 225 Balance -75 / -75 100 / 100 Intake: IV 50 / 50 100 / 100 Zosyn 3.375 gm In Dextrose 5% 50 / 50 100 / 100 in Water 50 ml @ 100 mls/hr IV Q6H [facility] Rx#:[id number] Oral 100 / 100 Output: Void Amount 225 / 225 Other: Meal Nourishment/Supplement Percent of Meal Consumed 100% Stool Size Small Stool Color Brown Stool Consistency Soft # Voids 1 1 2 # Bowel Movements 1 1 General appearance: cooperative, thin - Head Head exam: Present: atraumatic - Eye Eye exam: Present: EOMI, PERRL Pupils: Present: normal accommodation, PERRL - ENT ENT exam: Present: mucous membranes moist, normal oropharynx - Neck Neck exam: Present: full ROM. Absent: lymphadenopathy, meningismus, thyromegaly - Respiratory Respiratory exam: Present: decreased breath sounds. Absent: accessory muscle use - Cardiovascular Cardiovascular exam: Present: +S1, +S2. Absent: gallop, rubs - GI/Abdominal GI/Abdominal exam: Present: normal bowel sounds, soft. Absent: bruit, guarding , rebound, tenderness - Extremities Exam Extremities exam: Present: full ROM, pedal edema. Absent: tenderness - Neurological Exam Neurological exam: Present: alert, CN II-XII intact, oriented X3 Additional comments: Except hard of hearing - Skin Skin exam: Present: dry. Absent: petechiae, rash Medical - DS: Data Procedures and tests throughout hospitalization: 2-D echocardiogram (results pending), abdominal CT abdomen with contrast, venous Doppler bilateral extremities, barium swallow. Labs on day of discharge: Labs from last 24 hours 12/25/17 12/25/17 12/21/17 04:15 04:15 12:49 WBC 5.6 RBC 4.03 L Hgb 12.4 L Hct 37.6 L MCV 93.3 MCH 30.8 MCHC 33.0 RDW 14.8 H Plt Count 233 MPV 7.6 Gran % 76.7 Lymph % (Auto) 11.0 L [place] % (Auto) 5.6 Eos % (Auto) 6.5 Baso % (Auto) 0.2 Gran # 4.3 Lymph # (Auto) 0.6 L [place] # (Auto) 0.3 Eos # (Auto) 0.4 Baso # (Auto) 0 Sodium 136 Potassium 3.7 Chloride 98 Carbon Dioxide 32 H Anion Gap 6.0 L BUN 13 Creatinine 0.7 GFR Calculation 91 Glucose 69 L Calcium 8.5 L Total Bilirubin 0.4 AST 69 H ALT 160 H Alkaline Phosphatase 83 Total Protein 5.8 L Albumin 3.0 L Globulin 2.8 Albumin/Globulin Ratio 1.1 Vitamin B1 131 Preliminary micro results at discharge 12/20/17 18:09 Blood Culture - Preliminary Blood 12/20/17 18:45 Blood Culture - Preliminary Blood Medical - DS: A/P - Patient/Caregiver Discharge Instructions Activity: as per physical therapy (outpatient PT at [facility]), increase activity as tolerated Diet: Regular Diet, Dysphagia Mech Alter (Recommendations are for a soft diet ( multiple missing molars), as well as mild oral dysphagia. Also thin liquids with compensatory strategy of head turn to the right/tuck. Also would recommend that patient receive home health speech therapy services to assist with further training of compensatory strategy.) Additional Instructions: Recommendations are for a soft diet (multiple missing molars), as well as mild oral dysphagia. Also thin liquids with compensatory strategy of head turn to the right/tuck Prescriptions: Cefuroxime Axetil [Cefuroxime] 500 mg PO Q12H 7 Days #14 tab Fluticasone Hfa 220Mcg [Flovent Hfa 220Mcg] 2 puff INH BID #1 inhaler Folic Acid 1 mg PO DAILY #30 tab Metoprolol Succinate 25 mg PO DAILY #30 tab.er.24h Multivit,Ther Iron,Ca,FA & Min [Multivitamin W/Minerals] 1 tab PO DAILY #30 tab Thiamine [Vitamin B1] 100 mg PO DAILY #30 tab Other Amb Orders: Comprehensive Metabolic Panel Location: Determined By Patient Ferritin Location: Determined By Patient Iron Location: Determined By Patient Magnesium Location: Determined By Patient Phosphorous Location: Determined By Patient Retic Count, Absolute Location: Determined By Patient Total Iron Binding Capacity Location: Determined By Patient - Problem Maintenance (1) Hypoxia Status: Resolved Comment: Likely combination of anemia, progressive fibrosis, emphysema/acute COPD exacerbation, hepato-venous congestion, & acute aspiration. (2) Acute exacerbation of chronic obstructive airways disease Status: Resolved (3) Sinus tachycardia Status: Resolved Comment: Resolved with fluid rehydration and Toprol addition. Likely from worsening emphysema/COPD, hepato-venous congestion, and hypoxia (4) Pedal edema Status: Acute Comment: 2-D echo show < 50% IVC collapse, suggesting hepato- venous congestion leading to compromise venous return contributing to tachycardia and hypoxia. Further evaluation with cardiology is recommended (5) Anemia Status: Chronic Comment: Anemia as rehydration approach euvolemic status, likely some component of forward heart failure, so far workup suggests hypoproliferative anemia. Qualifiers: Anemia type: unspecified type Qualified Code(s): D64.9 - Anemia, unspecified (6) Gastroesophageal reflux disease Status: Chronic Comment: Barium swallow confirmed risks of aspiration, recommended soft diet with compensatory right tuck, and continue home health speech therapy for further training of compensatory strategy Qualifiers: Esophagitis presence: esophagitis presence not specified Qualified Code(s) : K21.9 - Gastro-esophageal reflux disease without esophagitis (7) Caloric malnutrition Status: Chronic (8) Emphysema of lung Status: Chronic Comment: Progressive worsening, history of occupational exposure to second-hand smoking Qualifiers: Emphysema type: other Qualified Code(s): J43.8 - Other emphysema (9) Fibrosis lung Status: Chronic Comment: Progressive worsening, history of occupational exposure to second-hand smoking - Follow up Plan Follow up with: Barrington Zhang MD [Primary Care Provider] - 12/31/17 3:30 pm (home health speech therapy services to assist with further training of compensatory strategy. lab work in a week (1 day before follow up) Follow-up with Dr. Zhang in 1-2 weeks;2-D echo show < 50% IVC collapse, suggesting hepato-venous congestion leading to compromise venous return contributing to tachycardia and hypoxia. Further evaluation with cardiology or vascular strategic solutions consultant is recommended.) Disposition: Home Health Service Prognosis: Fair Rehab Potential: Fair Overall status at discharge: patient is back to baseline Medical - DS: Qual - VTE Deep Vein Thrombosis/Pulmonary Embolism Present on Admission: No
[2017-12-26] MEDS ORDERED: ERGOCALCIFEROL (VITAMIN D2) 50,000 UNIT CAPSULE PO SCH ×2 (09:00)
== END 2017-12-25 19:25 | disposition home health service (06) | DRG 190 ==
LOC: ED 17:48 → ICU 22:30 → MEDSUR 12-24 17:33
PROVIDERS: ADMIT Emergency Medicine; ATTEND Emergency Medicine

== ENCOUNTER 2018-03-17 21:01 | Inpatient (IN) ==
[2018-03-17] MEDS ORDERED: MAGNESIUM SULFATE 2 GM/50 ML BAG IV ONE (21:16)
[2018-03-17] MEDS ORDERED: methylPREDNISolone SOD SUCC 125 MG/2 ML VIAL IV ONE (21:16)
[2018-03-17] MEDS ORDERED: IPRATROPIUM/ALBUTEROL 3 ML AMPUL.NEB NEB ONE (21:16)
[2018-03-17] MEDS ORDERED: 0.9 % SODIUM CHLORIDE 500 ML IV ONE (21:16)
[2018-03-17] MEDS ORDERED: ALBUTEROL SULFATE 2.5 MG/3 ML NEBULIZER NEB ONE (22:07)
[2018-03-17 22:41] LABS: ALT/SGPT 61 U/l (0-40); Albumin 2.9 gm/dL (3.2-5.2); Albumin/Globulin Ratio 0.7 (1.0-2.3); Alkaline Phosphatase 96 U/L (39-117); Basophils # (Auto) 0 K/mcL (0.0-0.3); Basophils % (Auto) 0 % (0.0-2.0); Blood Urea Nitrogen 18 mg/dl (8-23); Eosinophils # (Auto) 0.1 K/mcL (0.0-0.7); Eosinophils % (Auto) 0.5 % (0.0-7.0); Granulocytes % (Auto) 93.1 % (38.0-78.0); Lymphocytes # (Auto) 0.2 K/mcL (1.5-4.8); Lymphocytes % (Auto) 2.2 % (15.5-49.0); Mean Cell Volume 92.8 fL (80.0-100.0); Mean Corpuscular HGB Conc 33.4 g/dL (31.0-36.0); Monocytes # (Auto) 0.4 K/mcL (0.1-0.9); Monocytes % (Auto) 4.2 % (1.0-12.0); Platelet Count 246 K/mcL (140-440); RBC 4.22 M/mcL (4.50-5.90); Red Cell Distribution Width 14.5 % (11.5-14.5)
[2018-03-17] MEDS ORDERED: AZITHROMYCIN 500 MG in DEXTROSE 5% IN WATER 250 ML IV ONE (22:45)
--- NOTE | 2018-03-17 22:59 | Emergency Department Note ---
General Adult HPI - General Chief complaint: Shortness of Breath/Dyspnea Stated complaint: Short of Breath Time Seen by Provider: 03/17/18 21:16 Source: patient, family Mode of arrival: wheelchair Limitations: physical limitation (Not wearing his hearing aids) - History of Present Illness HPI Narrative: 77-year-old male who was gasping for air today at home and so was brought in by his sister-he initially required 10 L oxygen via nonrebreather mask. He has a history of COPD, CHF as well as fibrosis of the lungs but is not been doing well the last couple days. He takes oxygen at night but not during the day. Nebulizers treatments have not been helping. He was incontinent of a bowel movement as well. Also complaining of his right- sided jaw bothering him This history is from his sister mostly as he did not bring his hearing aids and so was unable to hear me well unless I yell into his right ear - Related Data Home Medications Medication Instructions Recorded Confirmed Tiotropium [place] [Spiriva] 18 mcg INH DAILY 01/11/15 03/17/18 ergocalciferol (vitamin D2) 50,000 50,000 unit PO QWEEK 11/28/16 03/17/18 unit capsule Albuterol Sulfate [Proair Hfa] 8.5 gm IH Q4-6HP PRN 12/20/17 03/17/18 Docusate Sodium [Colace] 100 mg PO DAILY 12/20/17 03/17/18 Polyethylene Glycol 1000 500 gm PO QDAY 12/20/17 03/17/18 [Polyethylene Glycol] Previous Rx's Medication Instructions Recorded Folic Acid 1 mg PO DAILY #30 tab 12/25/17 Metoprolol Succinate 25 mg PO DAILY #30 tab.er.24h 12/25/17 Multivit,Ther Iron,Ca,FA & Min 1 tab PO DAILY #30 tab 12/25/17 [Multivitamin W/Minerals] Thiamine [Vitamin B1] 100 mg PO DAILY #30 tab 12/25/17 fluticasone 220 mcg/actuation HFA 2 puff INHALATION BID #1 inhaler 01/02/18 aerosol inhaler omeprazole 40 mg capsule,delayed 40 mg PO QDAY #30 cap 01/02/18 release Allergies Allergy/AdvReac Type Severity Reaction Status Date / Time No Known Drug Allergies Allergy Verified 01/02/18 15:41 Review of Systems Limitations: ROS unobtainable due to patients medical condition Past Medical History - Past Medical History [facility], [facility] Narrative: Medical History (Last Reviewed 01/02/18 @ 16:08 by REYNA aWite) Gastroesophageal reflux disease (Chronic) Fibrosis lung (Chronic) Lung nodule (Suspected) Serum glucose decreased (Chronic) Lower respiratory tract infection (Chronic) Injury of radial nerve (Chronic) Nerve injury (Chronic) Pain in forearm (Chronic) Nuclear sclerosis (Chronic) Chalazion (Chronic) Pain in toe (Chronic) Abdominal pain, RUQ (Acute) Cholecystitis, acute (Acute) Emphysema of lung (Chronic) Hernia, inguinal, right (Acute) Cough (Chronic) Acute bronchitis (Chronic) COPD (chronic obstructive pulmonary disease) (Chronic) Scarring of lung (Chronic) Sexually transmitted disease (STD) (Resolved) Past Surgical History (Last Reviewed 01/02/18 @ 16:08 by REYNA Waite) History of cholecystectomy (Acute 12/25/12) Family History (Last Reviewed 01/02/18 @ 16:08 by REYNA Waite) Father Myocardial Infarction Source: old records reviewed Medical history: Reports: COPD (Emphysema with multiple lung nodules), other ( Poor nutrition, underweight, GERD, constipation, inguinal hernia). Denies: CHF Psychiatric history: Reports: no psych history Surgical history ED: Reports: cholecystectomy - Social History smoking status: Former smoker Physical Exam Cachectic male gasping for air on initial exam. Requiring nonrebreather mask oxygen. Gross hearing loss noted such that it is difficult to communicate with him; he did not bring his hearing aids. Normocephalic atraumatic. Conjunctive are clear sclerae white and nonicteric. No nasal discharge or congestion. Oropharynx is pink with dry buccal mucosa. Neck is supple without lymphadenopathy or thyromegaly. Heart is tachycardic I am unable to hear a significant murmur. Lungs very bronchitic with raspy type cough. Significant tight breathing such that I am unable to hear his lungs well despite getting a breathing treatment with DuoNeb. Significant respiratory distress. Abdomen is soft nontender nondistended. He does have +1-2 pitting edema bilaterally. This is tender. +2 radial pulse. He is alert and able to answer questions if yelled loudly into his right ear Course Vital Signs Temperature 98.2 F 09/30/18 21:01 Pulse Rate 93 H 03/17/18 21:01 Respiratory Rate 29 H 03/17/18 21:01 Blood Pressure 110/71 03/17/18 21:01 Pulse Oximetry (%) 91 03/17/18 21:01 Temperature 98.2 F 03/17/18 21:01 Pulse Rate 88 03/18/18 01:11 Respiratory Rate 25 H 03/18/18 01:11 Blood Pressure 100/67 03/17/18 21:47 Pulse Oximetry (%) 98 03/18/18 01:11 Medical Decision Making - Medical Records Medical records reviewed: Yes I reviewed the patient's medical records. - Lab Data Lab results reviewed: Yes I reviewed the patient's lab results. Result diagrams: 03/17/18 21:28 03/17/18 21:28 Lab Results 03/17/18 03/17/18 03/17/18 Range/Units 21:28 21:28 21:28 WBC 10.4 (4.5-11.0) K/mcL RBC 4.22 L (4.50-5.90) M/mcL Hgb 13.1 L (13.5-16.5) g/dL Hct 39.2 L (41.0-55.0) % POC Hct 42.0 (41.0-55.0) % MCV 92.8 (80.0-100.0) fL MCH 31.0 (26.0-34.0) pg MCHC 33.4 (31.0-36.0) g/dL RDW 14.5 (11.5-14.5) % Plt Count 246 (140-440) K/mcL MPV 8.1 (7.4-10.4) fL Gran % 93.1 H (38.0-78.0) % Lymph % (Auto) 2.2 L (15.5-49.0) % [place] % (Auto) 4.2 (1.0-12.0) % Eos % (Auto) 0.5 (0.0-7.0) % Baso % (Auto) 0 (0.0-2.0) % Gran # 9.7 H (1.8-8.0) K/mcL Lymph # (Auto) 0.2 L (1.5-4.8) K/mcL [place] # (Auto) 0.4 (0.1-0.9) K/mcL Eos # (Auto) 0.1 (0.0-0.7) K/mcL Baso # (Auto) 0 (0.0-0.3) K/mcL VBG Lactic Acid 3.1 H (0.5-2.2) mmol/L POC Sodium 133 (133-145) mmol/L Sodium 133 (133-145) mmol/L POC Potassium 4.3 (3.3-5.1) mmol/L Potassium 4.4 (3.3-5.1) mmol/L POC Chloride 89 L (96-108) mmol/L Chloride 89 L (96-108) mmol/L Carbon Dioxide 32 H (22-30) mmol/L POC Total CO2 34 H (22-30) mmol/L Anion Gap 12.0 (8-16) POC BUN 20 (8-23) mg/dl BUN 18 (8-23) mg/dl Creatinine 0.7 (0.7-1.2) mg/dl POC Creatinine 0.7 (0.7-1.2) mg/dl GFR Calculation 91 Glucose 167 H (70-105) mg/dL POC Glucose 167 H (70-105) mg/dL Calcium 9.2 (8.6-10.4) mg/dl POC WB Ioniz Calcium 1.18 (1.16-1.32) mmol/L Magnesium 2.2 (1.6-2.5) mg/dL Total Bilirubin 0.5 (0.0-1.0) mg/dL AST 43 H (0-37) U/l ALT 61 H (0-40) U/l Alkaline Phosphatase 96 (39-117) U/L Troponin T (0-0.03) ng/ml NT-Pro-B Natriuret Pep 1128.0 H (0-450) pg/ml Total Protein 7.0 (5.9-8.4) gm/dL Albumin 2.9 L (3.2-5.2) gm/dL Globulin 4.1 H (2.2-3.7) gm/dL Albumin/Globulin Ratio 0.7 L (1.0-2.3) 03/17/18 Range/Units 21:28 WBC (4.5-11.0) K/mcL RBC (4.50-5.90) M/mcL Hgb (13.5-16.5) g/dL Hct (41.0-55.0) % POC Hct (41.0-55.0) % MCV (80.0-100.0) fL MCH (26.0-34.0) pg MCHC (31.0-36.0) g/dL RDW (11.5-14.5) % Plt Count (140-440) K/mcL MPV (7.4-10.4) fL Gran % (38.0-78.0) % Lymph % (Auto) (15.5-49.0) % [place] % (Auto) (1.0-12.0) % Eos % (Auto) (0.0-7.0) % Baso % (Auto) (0.0-2.0) % Gran # (1.8-8.0) K/mcL Lymph # (Auto) (1.5-4.8) K/mcL [place] # (Auto) (0.1-0.9) K/mcL Eos # (Auto) (0.0-0.7) K/mcL Baso # (Auto) (0.0-0.3) K/mcL VBG Lactic Acid (0.5-2.2) mmol/L POC Sodium (133-145) mmol/L Sodium (133-145) mmol/L POC Potassium (3.3-5.1) mmol/L Potassium (3.3-5.1) mmol/L POC Chloride (96-108) mmol/L Chloride (96-108) mmol/L Carbon Dioxide (22-30) mmol/L POC Total CO2 (22-30) mmol/L Anion Gap (8-16) POC BUN (8-23) mg/dl BUN (8-23) mg/dl Creatinine (0.7-1.2) mg/dl POC Creatinine (0.7-1.2) mg/dl GFR Calculation Glucose (70-105) mg/dL POC Glucose (70-105) mg/dL Calcium (8.6-10.4) mg/dl POC WB Ioniz Calcium (1.16-1.32) mmol/L Magnesium (1.6-2.5) mg/dL Total Bilirubin (0.0-1.0) mg/dL AST (0-37) U/l ALT (0-40) U/l Alkaline Phosphatase (39-117) U/L Troponin T < 0.01 (0-0.03) ng/ml NT-Pro-B Natriuret Pep (0-450) pg/ml Total Protein (5.9-8.4) gm/dL Albumin (3.2-5.2) gm/dL Globulin (2.2-3.7) gm/dL Albumin/Globulin Ratio (1.0-2.3) - Radiology Data Radiology results reviewed: Yes I reviewed the patient's radiology results. Chest x-ray shows stigmata of severe emphysema/COPD and hyperinflation along with patchy infiltrate significantly worse when compared with 12/26/2017 - EKG Data EKG #1 EKG attestation: Yes I reviewed and interpreted this EKG. EKG results narrative: EKG with a rate of 88 sinus rhythm is Biatrial abnormalities low voltage in several leads secondary to his lung disease is getting of artifact it is difficult to sort out some of the other things going on but it does look like his got a Q wave in the inferior leads also 1 PAC is noted. Question of interventricular conduction delay Disposition Pt seen by PROFESSOR OF EARLY CHILDHOOD EDUCATION/PA only: No Clinical Impression: Caloric malnutrition, Fibrosis lung Congestive heart failure Qualifiers: Heart failure type: unspecified Heart failure chronicity: chronic Qualified Code(s): I50.9 - Heart failure, unspecified Pneumonia Qualifiers: Pneumonia type: due to unspecified organism Laterality: bilateral Lung location : unspecified part of lung Qualified Code(s): J18.9 - Pneumonia, unspecified organism Respiratory failure Qualifiers: Chronicity: acute on chronic Respiratory failure complication: hypoxia and hypercapnia Qualified Code(s): J96.21 - Acute and chronic respiratory failure with hypoxia Summary: After initial evaluation and patient is placed on nonrebreather mask started breathing treatment with DuoNeb. This did help some but not nearly enough and so albuterol's second dose is given. Workup is ordered and chest x-ray shows patchy infiltrate so azithromycin IV as ordered. For the COPD Solu-Medrol is also ordered along with mag sulfate to help relax the smooth muscles around the lungs As he has dry buccal mucosa bolus normal saline given Arterial blood gas shows a pH of 7.35 PCO2 91 and PO2 of 79. Unclear what his baseline PCO2 is but with his borderline pH is suggested PCO2 is likely in the 50s and 60s normally. Anyways he is certainly struggling to breathe here. I briefly discussed with him the need for BiPAP for respiratory failure and he agreed to try it. Start BiPAP at 15/5 with a rate of 10 I then discussed the case with Dr. Sierra, our hospitalist who agreed to evaluate the patient for admission Disposition: Xfer As Inpt ([facility]) Condition: Critical
[2018-03-18] MEDS ORDERED: methylPREDNISolone SOD SUCC 40 MG/ML VIAL IV SCH
--- NOTE | 2018-03-18 00:09 | Internal Med History&Physical ---
Medical - H&P: HPI Patient information: Note initiated : 03/18/18 at 12:01 am Service Date, if different from initiated Date: [] Patient: Yoel Valdes 77 y/o M admitted on for Short of Breath. Chief Complaint: [] has history of copd and lung fibrosis is on 2 lpm nc O2 at night and was dx with COPD [address] Verdin. Accompanied by sister and brother in law who say pt used to weigh 155lbs and 5'10". Is a retired draftsman. Is also a . Quit smoking cigarettes about 30 years go and quit weed about 10 years ago. Pt is on bipap and delirious. Agrees that I should talk to sister for questions regarding his health. She says he would want intubation in emergent condition but not prolonged life support and will try to find the POLST form. Also would not want CPR. Their mother had and didnt want CPR but had gotten it. Chief complaint: respiratory distress History of present illness: Mr. Valdes is a 77 year old M ROS unobtainable: due to mental status, other (respiratory failure on bipap) - Constitutional Constitutional: Present: weakness, weight loss (severe) - Cardiovascular Cardiovascular: Present: dyspnea, dyspnea on exertion - Respiratory Respiratory: Present: dyspnea on exertion - Gastrointestinal Additional comments: incontinence unable to get to bathroom - Genitourinary Genitourinary: Present: urinary incontinence - Psychiatric Psychiatric: Present: depression (over poor health and dependence on others as a result) - Endocrine Endocrine: Present: change in body appearance Medical - H&P: PMH Medical history: COPD pulmonary fibrosis Weight loss Social history: lives alone in his own house. Sister checks on him twice a day and takes him food and spoon feeds him DNR but intubation is ok per discussion with sister. no prolonged life support Functional capacity: independent ambulation Smoking status: Former smoker Have you smoked in the last 12 months: No Drug use: none (per sister) history: yes Medical - H&P: Meds Home Medications Medication Instructions Recorded Confirmed Type Tiotropium [place] [Spiriva] 18 mcg INH DAILY 01/11/15 03/17/18 History ergocalciferol (vitamin D2) 50,000 50,000 unit PO QWEEK 11/28/16 03/17/18 History unit capsule Albuterol Sulfate [Proair Hfa] 8.5 gm IH Q4-6HP PRN 12/20/17 03/17/18 History Docusate Sodium [Colace] 100 mg PO DAILY 12/20/17 03/17/18 History Polyethylene Glycol 1000 500 gm PO QDAY 12/20/17 03/17/18 History [Polyethylene Glycol] Folic Acid 1 mg PO DAILY #30 tab 12/25/17 03/17/18 Rx Metoprolol Succinate 25 mg PO DAILY #30 tab.er.24h 12/25/17 03/17/18 Rx Multivit,Ther Iron,Ca,FA & Min 1 tab PO DAILY #30 tab 12/25/17 03/17/18 Rx [Multivitamin W/Minerals] Thiamine [Vitamin B1] 100 mg PO DAILY #30 tab 12/25/17 03/17/18 Rx fluticasone 220 mcg/actuation HFA 2 puff INHALATION BID #1 inhaler 01/02/18 Rx aerosol inhaler omeprazole 40 mg capsule,delayed 40 mg PO QDAY #30 cap 01/02/18 03/17/18 Rx release Allergies Allergy/AdvReac Type Severity Reaction Status Date / Time No Known Drug Allergies Allergy Verified 01/02/18 15:41 Medical - H&P: Exam - Constitutional Vitals: Temp Pulse Resp BP Pulse Ox 98.2 F 91 H 21 100/67 96 03/17/18 21:01 03/17/18 23:48 03/17/18 23:48 03/17/18 21:47 03/17/18 23:48 General appearance: cooperative, disheveled, moderate distress, thin - Head Head exam: Present: atraumatic - Eye Eye exam: Absent: conjunctival injection, scleral icterus Pupils: Present: PERRL - Expanded Neck Exam Neck exam: Absent: midline deformity, tenderness - Respiratory Respiratory exam: Present: accessory muscle use, decreased breath sounds, prolonged expiratory phase, respiratory distress Additional comments: poor air movement - Cardiovascular Cardiovascular exam: Present: normal rate and rhythm - GI/Abdominal GI/Abdominal exam: Present: normal bowel sounds, soft. Absent: distended, organomegaly, tenderness - Expanded GI/Abdominal Exam GI/Abdominal exam: Absent: ascites - Expanded Lower Extremities Exam Foot/Toe exam: Present: swelling (1+ edema bilat feet and ankles only) Medical - H&P: Reslt - Labs CBC & Chem 7: 03/17/18 21:28 03/17/18 21:28 Labs: Short CBC 03/17/18 Range/Units 21:28 WBC 10.4 (4.5-11.0) K/mcL Hgb 13.1 L (13.5-16.5) g/dL Hct 39.2 L (41.0-55.0) % Plt Count 246 (140-440) K/mcL BMP 03/17/18 21:28 Sodium 133 Potassium 4.4 Chloride 89 L Carbon Dioxide 32 H BUN 18 Creatinine 0.7 Glucose 167 H Calcium 9.2 Cardiac Enzymes 03/17/18 Range/Units 21:28 Troponin T < 0.01 (0-0.03) ng/ml Liver Function 03/17/18 Range/Units 21:28 Total Bilirubin 0.5 (0.0-1.0) mg/dL AST 43 H (0-37) U/l ALT 61 H (0-40) U/l Alkaline Phosphatase 96 (39-117) U/L Albumin 2.9 L (3.2-5.2) gm/dL - ABG Interpretation Interpretation: respiratory acidosis Additional comments: acute on chronic respiratory failure - EKG Data EKG shows normal: sinus rhythm Rate: tachycardia - EKG Data Prior EKG available for review: no - Imaging and Cardiology Chest x-ray Additional comments: bilateral diffuse patchy infiltrates consistent with pulmonary fibrosis Medical - H&P: A/P (1) Respiratory failure Current visit: Yes Status: Acute improved clinically on bipap. Tough abg stick. Will hydrate and treat for atypical pathogens and repeat abg in morning (2) Acute exacerbation of chronic obstructive airways disease Current visit: No Status: Acute steroids and nebulizers. oxygen and bipap (3) Caloric malnutrition Current visit: Yes Status: Chronic severe protein calorie malnutrition. At risk for high morbidity and mortality. caloric intake poor. 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 Will proceed with CT chest due to cachexia and pulmonary fibrosis. - Narrative A/P Narrative: 75 mins critical care time. Will consult Dr. Verdin when available. End stage COPD and pulmonary fibrosis.
[2018-03-18] MEDS ORDERED: 0.9 % SODIUM CHLORIDE 2,000 ML IV ONE ×2 (00:23→01:10)
[2018-03-18] MEDS: AZITHROMYCIN 500 MG in DEXTROSE 5% IN WATER 250 ML IV SCH ×2 (01:27→22:10)
[2018-03-18] MEDS ORDERED: methylPREDNISolone SOD SUCC 125 MG/2 ML VIAL ONE (03:44)
[2018-03-18 04:43] LABS: Basophils # (Auto) 0 K/mcL (0.0-0.3); Basophils % (Auto) 0 % (0.0-2.0); Eosinophils # (Auto) 0 K/mcL (0.0-0.7); Eosinophils % (Auto) 0 % (0.0-7.0); Granulocytes % (Auto) 96.6 % (38.0-78.0); Lymphocytes # (Auto) 0.2 K/mcL (1.5-4.8); Lymphocytes % (Auto) 1.4 % (15.5-49.0); Mean Cell Volume 93.4 fL (80.0-100.0); Mean Corpuscular HGB Conc 33.3 g/dL (31.0-36.0); Mean Corpuscular Hemoglobin 31.1 pg (26.0-34.0); Monocytes # (Auto) 0.2 K/mcL (0.1-0.9); Platelet Count 246 K/mcL (140-440); RBC 3.88 M/mcL (4.50-5.90); Red Cell Distribution Width 15.2 % (11.5-14.5)
[2018-03-18] MEDS: methylPREDNISolone SOD SUCC 40 MG/ML VIAL IV SCH ×3 (05:17→17:41)
[2018-03-18] MEDS: 0.9 % SODIUM CHLORIDE 10 ML SYRINGE IV SCH ×3 (05:18→22:11)
[2018-03-18] MEDS ORDERED: 0.9 % SODIUM CHLORIDE 10 ML SYRINGE IV SCH (06:00)
--- NOTE | 2018-03-18 08:27 | XRay Report ---
CLINICAL INFORMATION: dyspnea - known COPD COMPARISON: 10/24/2017 and 02/04/2018 chest x-ray FINDINGS: Heart size, mediastinum and pulmonary vessels are normal. Severe COPD changes and moderate peripheral interstitial fibrosis again noted. On today's examination, there are superimposed moderate patchy alveolar infiltrates in both lower and upper lung alvarado - most prominent in the right upper lung. Small bilateral pleural effusions noted IMPRESSION: Moderate patchy alveolar infiltrates in both upper and lower lung alvarado - more prominent in the right upper lung. Consider aspiration or infection. Underlying severe COPD and known interstitial fibrosis in the periphery of both lungs Interpreted and Authenticated by: Adolfo De La Fuente 03/18/18
[2018-03-18] MEDS ORDERED: IOPAMIDOL 100 ML BOTTLE IV ONE (11:48)
--- NOTE | 2018-03-18 12:16 | Cat Scan Report ---
CLINICAL INFORMATION: Hypoxia and pulmonary fibrosis. Dyspnea COMPARISON: Chest CT 02/12/2014 and 06/21/2017 TECHNIQUE: 80 cc of Isovue-300 were injected intravenously, and 25 seconds later, 0.625 mm helical slices were obtained from the lung apices through the bases. Following reconstruction, 2.5 mm sagittal, coronal and axial reformations were processed and reviewed at lung, mediastinal and bone windows. 7 mm axial MIPS were also obtained to optimize pulmonary nodule detection. The exam was performed using radiation dose optimization techniques including, but not limited to, automated exposure control, adjustment of the mA and/or kV according to patient size and use of iterative reconstruction technique. FINDINGS: Pulmonary parenchymal windows show moderate centrilobular/ paraseptal emphysema changes with multiple biapical bullae and also bullae in the periphery of the right middle and both lower lobes. There is scattered stranding and interstitial fibrosis but no definite regional honeycomb pattern. There is moderate varicose bronchiectasis of the right upper lobe and segmental bronchi. Mild tubular bronchiectasis seen within the segmental bronchi of the left upper lobe. A moderate sized alveolar infiltrate has developed in the posterior segment of the right upper lobe. Smaller patchy infiltrates are seen throughout both lower lobes. All infiltrates are either new or have progressed considerably since the chest CT nine months ago. Small right pleural effusion is noted and there is also a 20-30% right pneumothorax. Mediastinal windows show the thoracic aorta is normal in contour and caliber. The central pulmonary arteries are mildly enlarged suggesting pulmonary hypertension: this is unchanged. There is no adenopathy mediastinal hilar or axillary regions. The heart is normal in size and configuration. Thyroid is grossly normal. Bones and soft tissues chest wall show no abnormality. IMPRESSION: 1. Moderate centrilobular and paraseptal emphysema changes featuring elevated lung volumes, chronic bronchitis and multiple bullae in the apical regions and the periphery of the right middle and both lower lobes. There are also scattered regions of interstitial and stranding fibrosis, but no definite regional honeycomb pattern would suggest IPF or UIP. 2. Moderate consolidated infiltrate in the posterior segment right upper lobe in the region of varicose bronchiectasis. There are smaller patchy lingular infiltrates throughout both lower lobes which are new or have progressed since the prior CT. Suspect chronic or recurrent aspiration. 3. 20-30% right pneumothorax and a small right pleural effusion. Right smallbore chest tube will be placed under fluoroscopy. 4. Mildly enlarged central pulmonary arteries suggesting pulmonary hypertension related to chronic lung disease Interpreted and Authenticated by: Adolfo De La Fuente 03/18/18
[2018-03-18] MEDS ORDERED: MIDAZOLAM 2 MG/2 ML VIAL ONE (15:03)
[2018-03-18] MEDS ORDERED: LIDOCAINE 1% 20 ML VIAL SQ ONE (15:21)
[2018-03-18] MEDS ORDERED: MIDAZOLAM 2 MG/2 ML VIAL IV ONE (15:25)
[2018-03-18] MEDS: DEXTROSE 5%-NS W/20MEQ KCL 1,000 ML IV SCH (15:30)
--- NOTE | 2018-03-18 15:33 | XRay Report ---
CLINICAL INFORMATION: 30% right pneumothorax TECHNIQUE: The skin overlying the anterior second intercostal space at mid clavicular line was fluoroscopically marked, prepped and locally anesthetized to the level of the parietal pleura with 1% lidocaine using a 25-gauge needle. A 12 Bulgarian small bore chest tube mounted on a trocar was then placed under fluoroscopic guidance into the pleural space. Approximately 1 L of air was evacuated and the tube was left to Heimlich valve. Tube was then secured to the skin with 0 silk suture, dressed and tape. Post procedure fluoroscopy shows the right lung to be completely reexpanded IMPRESSION: Successful placement of 12 Bulgarian small bore pigtail chest tube into the right pleural space with evacuation of 1 L air. There was complete reexpansion of the right lung. Suggest: Repeat film in two days following one hour test closure of the the Heimlich valve. If the lung remains reexpanded at that time the tube may be removed. Interpreted and Authenticated by: Adolfo De La Fuente 03/18/18
--- NOTE | 2018-03-18 18:18 | Consultation ---
DATE OF CONSULTATION: 03/18/2018 PULMONARY CONSULTATION REQUESTING: Dr. Sierra, Hospitalist [facility] CONSULTING: Dr. Verdin, Pulmonary Disease HOSPITAL COURSE: The patient is a 77-year-old male known to me from outpatient care. He unfortunately has severe end-stage chronic obstructive pulmonary disease, oxygen dependent. He has been losing weight despite efforts to increase caloric intake and maintain weight. The exact etiology of that is not known with certainty, but may be on the basis of the significant amount of effort he has to put into his minute by minute respirations. The patient presented to the hospital with significant shortness of breath and was placed on BiPAP. An initial arterial blood gas showed PaCO2 at 92 mmHg with a pH of 7.35 suggesting both acute and significant chronic respiratory failure. Additional evaluation demonstrated the presence of a right pneumothorax. The patient has had a small catheter chest tube placed on the right by radiology services and is currently returned to the ICU with a little sedation on board from [place]. History from the patient is not available and family members are not present. System review is not available. A brief physical examination demonstrates a very cachectic gentleman in mild respiratory distress with a BiPAP mask in place, full face mask set at a 5/15 cm of water pressure. Lungs have markedly decreased breath sounds and hyperresonance. There is a rare scattered rhonchus and occasional coarse interstitial sound. There is more tympany to percussion on the right. Heimlich valve was present on the chest tube at this point in time. Abdomen is scaphoid and without apparent abnormalities. The heart is regular, but difficult to hear through the chest, S1, S2. There is certainly no edema. There is no subcutaneous fat practically. Other laboratory data that has been collected during this hospitalization includes a presenting white count last night at 10.4; hemoglobin of 13.1; and a platelet count of 246,000. This morning, the white count is 11.4; hemoglobin 12.1; and platelet count 246,000. A Venous lactic acid is elevated at 3.1. PCO2 from basic metabolic survey is 34. Glucose 167, magnesium 2.2. Liver enzymes mildly elevated. BNP is elevated at 1128. Albumin is depressed at 2.9, total protein 7.0. Radiographic evaluation is a basically as discussed now with a small catheter size chest tube into the upper right hemithorax. IMPRESSION: Critically ill 77-year-old gentleman with complications of end-stage chronic obstructive pulmonary disease, now with significant hypoventilation and pneumothorax. Hopefully, the chest tube will resolve the pneumothorax and improve his mechanics of breathing while he is supported with BiPAP therapy. Hopefully, any airway edema that may be in the background from a transient viral or other illness will start to rekha. The patient is covered with Solu-Medrol as well as azithromycin for airway pathogens. I will look for the family to have a consultation regarding their understanding and expectations. I will follow with. Thank you for the opportunity to participate in the care of this seriously ill gentleman. KJP:zac Job ID: [id number] Doc ID: [id number] Hu GRAY
--- NOTE | 2018-03-18 21:00 | Internal Med Progress Note ---
Medical - PN: Subj Patient information: Note initiated : 03/18/18 at 8:53 pm Service Date, if different from initiated Date: [] Patient: Yoel Valdes 77 y/o M admitted on 03/18/18 for Short of Breath. Chief Complaint: [] Interval history: pt pulled of his mask and couldnt get his breath bipap back on. He is unable to converse due to severe air hunger when removed. CT scan of chest was done to look for malignancy or lung disease progression and showed a 20% right lung pneumothorax not a tension pneumo. counseled pt but unable to communicate reliably due to illness. The pts family including brother and sister and brother in law talked to him and wrote out options. Pt opts for chest tube and CPR but not prolonged life support. I counseled the pts family that further intervention is futile because he has severe pulmonary cachexia and 60lbs weight loss in one year. The wanted to proceed as per pts wishes so pt went to IR - Constitutional Vitals: Vital Signs Temp Pulse Resp BP Pulse Ox 97.7 F 92 H 26 H 101/59 98 03/18/18 20:01 03/18/18 19:06 03/18/18 20:01 03/18/18 20:01 03/18/18 20:01 Period Temp Pulse Resp BP Sys/Lemus Pulse Ox Last 24 Hr 97.3 F-98.2 F 66-104 19-36 85-114/47-78 82-100 Intake and Output 03/18/18 03/18/18 03/18/18 05:59 13:59 21:59 Intake Total 2650 / 2650 0 / 0 0 / 0 Output Total 300 / 300 0 / 0 201 / 201 Balance 2350 / 2350 0 / 0 -201 / -201 Weight 93 lb 14.4 oz 96 lb 12.8 oz Patient Weight 03/19/18 05:59 Weight 96 lb 12.8 oz Intake & Output: Intake & Output 03/18/18 03/18/18 03/18/18 05:59 13:59 21:59 Intake Total 2650 / 2650 0 / 0 0 / 0 Output Total 300 / 300 0 / 0 201 / 201 Balance 2350 / 2350 0 / 0 -201 / -201 Weight 93 lb 14.4 oz 96 lb 12.8 oz Intake: IV 2650 / 2650 Sodium Chloride 0.9% 2,000 ml @ 2350 / 2350 1000 mls/hr IV BOLUS ONE Rx#: [id number] Zithromax 500 mg In Dextrose 5% 250 / 250 in Water 250 ml @ 250 mls/hr IV ONCE ONE Rx#:[id number] Oral 0 / 0 0 / 0 Output: Chest Tube Drainage 0 / 0 Right Anterior Chest 0 / 0 Void Amount 300 / 300 0 / 0 200 / 200 # of times incontinent of urine Other: Meal Not appropriate at this time d/t high oxygen demands Lunch Percent of Meal Consumed 0% Urine Appearance Clear Clear Urine Color Bright Yellow Bright Yellow Urine Odor Strong Strong Stool Size Smear Smear Stool Color Brown Brown Stool Consistency Soft # Voids 1 # Bowel Movements 1 # of times incontinent of 1 1 Bowels General appearance: moderate distress, thin Exam: cachectic - Respiratory Respiratory exam: Present: decreased breath sounds, prolonged expiratory phase Additional comments: bipap - Cardiovascular Cardiovascular exam: Present: normal rate and rhythm - Extremities Exam Extremities exam: Absent: pedal edema Medical - PN: Obj Da - Labs CBC & Chem 7: 03/18/18 03:59 03/17/18 21:28 Labs: Abnormal Lab Results 03/18/18 03/17/18 03/17/18 03:59 21:28 21:28 WBC 11.4 H RBC 3.88 L Hgb 12.1 L Hct 36.3 L RDW 15.2 H Gran % 96.6 H Lymph % (Auto) 1.4 L Gran # 11.0 H Lymph # (Auto) 0.2 L VBG Lactic Acid 3.1 H POC Chloride 89 L Chloride 89 L Carbon Dioxide 32 H POC Total CO2 34 H Glucose 167 H POC Glucose 167 H AST 43 H ALT 61 H NT-Pro-B Natriuret Pep 1128.0 H Albumin 2.9 L Globulin 4.1 H Albumin/Globulin Ratio 0.7 L 03/17/18 21:28 WBC RBC 4.22 L Hgb 13.1 L Hct 39.2 L RDW Gran % 93.1 H Lymph % (Auto) 2.2 L Gran # 9.7 H Lymph # (Auto) 0.2 L VBG Lactic Acid POC Chloride Chloride Carbon Dioxide POC Total CO2 Glucose POC Glucose AST ALT NT-Pro-B Natriuret Pep Albumin Globulin Albumin/Globulin Ratio Meds: Medications Albuterol/Ipratropium (Duoneb) 3 ml NEB Q4HP PRN PRN Reason: Shortness Of Breath Azithromycin 500 mg/ Dextrose 250 mls @ 250 mls/hr IV Q24H [facility] Stop: 03/20/18 01:29 Last Admin: 03/18/18 01:27 Dose: Not Given Potassium Chloride/Dextrose/Sod Cl (Dextrose 5%-Ns W/20meq Kcl) 1,000 mls @ 100 mls/hr IV .Q10H [facility] Last Admin: 03/18/18 15:30 Dose: 100 mls/hr Methylprednisolone Sodium Succinate (Solu-Medrol) 40 mg IV Q6 [facility] Last Admin: 03/18/18 17:41 Dose: 40 mg Sodium Chloride (Saline Flush) 10 ml IV Q8 [facility] Last Admin: 03/18/18 15:27 Dose: 10 ml - ABG Interpretation Additional comments: pcO2 60 PH 7.42 Medical - PN: A/P - Time Spent With Patient Total time spent is greater than 50% in coordination of care (as documented) at patient's floor/unit and/or counseling patient: Greater than 35 minutes (1) Respiratory failure Status: Acute Assessment and plan: acute on chronic with centrilobular emphysema, spont pneumothorax and pulm fibrosis. NOw with end stage pulmonary cachexia. I recommended hospice care but pt and family not ready for that change. Confirmed want full treatment and full code including intubation Current Visit: Yes (2) Acute exacerbation of chronic obstructive airways disease Status: Acute Assessment and plan: nebs and steroids. Current Visit: No (3) Caloric malnutrition Status: Chronic Assessment and plan: severe protein calorie nutrition deficit. Need to address a feeding tube if pt desires full supportive care as he is not able to eat. Current Visit: Yes - Narrative A/P Narrative: 1 hour critical care time. met with Dr. Verdin and family and staff. Pt seen 3 times. Medical - PN: Qual - VTE Deep Vein Thrombosis/Pulmonary Embolism Present on Admission: No
[2018-03-19] MEDS: methylPREDNISolone SOD SUCC 40 MG/ML VIAL IV SCH ×4 (01:19→17:38)
[2018-03-19] MEDS: DEXTROSE 5%-NS W/20MEQ KCL 1,000 ML IV SCH ×5 (03:30→17:31)
[2018-03-19] MEDS: 0.9 % SODIUM CHLORIDE 10 ML SYRINGE IV SCH ×3 (05:56→20:11)
[2018-03-19] MEDS: IPRATROPIUM/ALBUTEROL 3 ML AMPUL.NEB NEB PRN (07:32)
--- NOTE | 2018-03-19 09:25 | XRay Report ---
CLINICAL INFORMATION: patient pulled chest tube out right pneumothorax COMPARISON: 03/17/2018 FINDINGS: Heart size, mediastinum and pulmonary vessels are normal. Moderate COPD changes again noted. Moderate infiltrate in the right base with patchy infiltrates throughout both lungs again noted. New small infiltrate right lung apex. The right chest tube has been inadvertently removed. Despite this, there is only a 10% right pneumothorax in the upper lobe region. Moderate subcutaneous emphysema noted. IMPRESSION: 1. Only 10% right pneumothorax following involuntary patient removal of chest tube. Moderate subcutaneous emphysema over the upper right lateral chest wall and neck. Given the small pneumothorax, suggest follow-up x-ray in 2 to 3 hours rather than trying to replace the tube. 2. Moderate COPD changes with right basilar infiltrate and patchy infiltrates throughout both lungs - stable Interpreted and Authenticated by: Adolfo De La Fuente 03/19/18
--- NOTE | 2018-03-19 12:57 | Consultation ---
DATE OF CONSULTATION: 03/19/2018 HISTORY OF PRESENT ILLNESS: The patient is a pleasant 78-year-old gentleman seen yesterday in the ICU with pneumothorax and serious exacerbation of chronic obstructive pulmonary disease, on a BiPAP mask. Today, the patient is alert. Three siblings are in the room. The patient appears to understand and communicate. He unfortunately discontinued his right-sided small chest tube for his pneumothorax. Follow-up chest x-ray is pending at this time. Nutrition remains an issue. Family is dedicated to the idea of maintaining his health at this time. PHYSICAL EXAMINATION: GENERAL: The patient is alert and interactive. NECK: Supple. LUNGS: Markedly decreased breath sounds in all lung alvarado with occasional rhonchus. HEART: Regular S1, S2. ABDOMEN: Remains scaphoid. EXTREMITIES: There is no dependent edema. Conversation with the nurse indicates that the patient did not tolerate removal of his Bi-PAP support for an opportunity to take in oral food. She also reports a 600 mL bladder and requests consideration for a Man catheter. Conversation was held with Dr. Sierra, looking forward to observing the subsequent chest x-ray and the patient's nutrition was discussed. A nasogastric feeding tube is suggested and he raises the question given the patient's chronic undernutrition of progressing to a PEG tube. He will discuss that with the patient and family. Given the difficulty with respirations a nasogastric feeding tube is recommended for the short course to see if we can get in adequate nutrition. IMPRESSION: A pleasant 78-year-old gentleman with serious exacerbation of chronic obstructive pulmonary disease complicated by right-sided pneumothorax. Recommendations would be to continue support with BiPAP pressure, follow and evaluate and re-instrument the right pneumothorax as required. Allow time for airway healing. Address nutritional issues in the short and long courses discussed above. Thank you for the opportunity to participate in the care of this pleasant gentleman who I see as an outpatient. I will continue to follow. KJP:josh Job ID: [id number] Doc ID: [id number] Hu GRAY
--- NOTE | 2018-03-19 13:02 | XRay Report ---
CLINICAL INFORMATION: follow up after patient removed chest tube this am COMPARISON: 03/19/2018 0904 hours FINDINGS: Right pneumothorax shows a modest increase now approximately 15 %. Severe COPD changes and patchy infiltrates in both lungs shows slight improvement. Subcutaneous emphysema over the right lateral chest wall to increase. Cardiac mediastinal silhouette and pulmonary vessels are normal IMPRESSION: Modest increase right pneumothorax since comparison x-ray three hours ago. It is now approximately 15%. Moderate COPD. Patchy infiltrates in both lungs unchanged Interpreted and Authenticated by: Adolfo De La Fuente 03/19/18
--- NOTE | 2018-03-19 15:13 | Internal Med Progress Note ---
Medical - PN: Subj Patient information: Note initiated : 03/19/18 at 3:09 pm Service Date, if different from initiated Date: [] Patient: Yoel Valdes 78 y/o M admitted on 03/18/18 for Short of Breath/ Respiratory Failure. Chief Complaint: [acute resp failure] Interval history: pt improved overnight with chest tube and bipap but unable to eat or have mask off. Pt pulled his right anterior chest tube this morning. Repeat CXR shows 5- 15% pneumothorax on consecutive film. A flap put over the hole and repeat CXR 5 % pneumo again so is improved. Counseled pt and family with help of Dr. Verdin and they want a to proceed with feeding tube. Pt knows his lungs unlikely to improve and family also understand. Pertinent ROS: pt anxious and pulls at lines. - Constitutional Vitals: Vital Signs Temp Pulse Resp BP Pulse Ox 98.4 F 75 24 H 129/97 97 03/19/18 14:01 03/19/18 13:00 03/19/18 15:01 03/19/18 15:01 03/19/18 15:01 Period Temp Pulse Resp BP Sys/Lemus Pulse Ox Last 24 Hr 97.3 F-98.4 F 60-104 18-36 93-146/47-130 82-100 Intake and Output 03/19/18 03/19/18 03/19/18 05:59 13:59 21:59 Intake Total 1250 / 1250 1000 / 1000 Output Total 550 / 550 10 / 10 260 / 260 Balance 700 / 700 990 / 990 -260 / -260 Weight 96 lb 12.8 oz Patient Weight 03/20/18 05:59 Weight 96 lb 12.8 oz Intake & Output: Intake & Output 03/19/18 03/19/18 03/19/18 05:59 13:59 21:59 Intake Total 1250 / 1250 1000 / 1000 Output Total 550 / 550 10 / 10 260 / 260 Balance 700 / 700 990 / 990 -260 / -260 Weight 96 lb 12.8 oz Intake: IV 1250 / 1250 1000 / 1000 Zithromax 500 mg In Dextrose 5% 250 / 250 in Water 250 ml @ 250 mls/hr IV Q24H [facility] Rx#:[id number] Dextrose 5%-Ns W/20Meq KCl 1, 1000 / 1000 1000 / 1000 000 ml @ 100 mls/hr IV .Q10H [facility] Rx#:[id number] Oral 0 / 0 Output: Urine Catheter Amount 60 / 60 Void Amount 550 / 550 200 / 200 Other: Urine Appearance Clear Uretheral (Johnson) Clear Urine Color Dark Yellow Uretheral (Johnson) Bright Yellow Urine Odor Normal Strong Uretheral (Johnson) Normal Stool Size Moderate Stool Color Brown Stool Consistency Soft # of times incontinent of 1 1 Bowels General appearance: cooperative, mild distress, thin Exam: cachectic - Respiratory Respiratory exam: Present: accessory muscle use, decreased breath sounds, prolonged expiratory phase, rales - Cardiovascular Cardiovascular exam: Present: normal rate and rhythm - Additional comments: johnson placed due to 700cc urine retention - Extremities Exam Extremities exam: Absent: pedal edema - Neurological Exam Neurological exam: Present: alert Additional comments: aware is at [facility] in [place] - Skin Skin exam: Present: dry, warm Medical - PN: Obj Da - Labs CBC & Chem 7: 03/18/18 03:59 03/17/18 21:28 Labs: Abnormal Lab Results 03/18/18 03/17/18 03/17/18 03:59 21:28 21:28 WBC 11.4 H RBC 3.88 L Hgb 12.1 L Hct 36.3 L RDW 15.2 H Gran % 96.6 H Lymph % (Auto) 1.4 L Gran # 11.0 H Lymph # (Auto) 0.2 L VBG Lactic Acid 3.1 H POC Chloride 89 L Chloride 89 L Carbon Dioxide 32 H POC Total CO2 34 H Glucose 167 H POC Glucose 167 H AST 43 H ALT 61 H NT-Pro-B Natriuret Pep 1128.0 H Albumin 2.9 L Globulin 4.1 H Albumin/Globulin Ratio 0.7 L 03/17/18 21:28 WBC RBC 4.22 L Hgb 13.1 L Hct 39.2 L RDW Gran % 93.1 H Lymph % (Auto) 2.2 L Gran # 9.7 H Lymph # (Auto) 0.2 L VBG Lactic Acid POC Chloride Chloride Carbon Dioxide POC Total CO2 Glucose POC Glucose AST ALT NT-Pro-B Natriuret Pep Albumin Globulin Albumin/Globulin Ratio Meds: Medications Albuterol/Ipratropium (Duoneb) 3 ml NEB Q4HP PRN PRN Reason: Shortness Of Breath Last Admin: 03/19/18 07:32 Dose: 3 ml Azithromycin 500 mg/ Dextrose 250 mls @ 250 mls/hr IV Q24H [facility] Stop: 03/20/18 01:29 Last Infusion: 03/18/18 23:25 Dose: Infused Potassium Chloride/Dextrose/Sod Cl (Dextrose 5%-Ns W/20meq Kcl) 1,000 mls @ 100 mls/hr IV .Q10H [facility] Last Admin: 03/19/18 13:43 Dose: 100 mls/hr Lorazepam (Ativan) 0.5 mg IV Q2HP PRN PRN Reason: ANXIETY/SEDATION Methylprednisolone Sodium Succinate (Solu-Medrol) 40 mg IV Q6 [facility] Last Admin: 03/19/18 12:20 Dose: 40 mg Morphine Sulfate (Morphine) 2 mg IV Q3HP PRN PRN Reason: Pain Sodium Chloride (Saline Flush) 10 ml IV Q8 [facility] Last Admin: 03/19/18 12:18 Dose: 10 ml Medical - PN: A/P - Time Spent With Patient Total time spent is greater than 50% in coordination of care (as documented) at patient's floor/unit and/or counseling patient: Greater than 35 minutes (critical care time) (1) Respiratory failure Status: Acute Assessment and plan: acute on chronic with centrilobular emphysema, spont pneumothorax and pulm fibrosis. NOw with end stage pulmonary cachexia. I recommended hospice care but pt and family not ready for that change. Confirmed want full treatment and full code including intubation and feeding tube. Will proceed with G tube today in operating room. Due to bipap will try high flow oxygen and small dose morphine and lorazepam for air hunger. Current Visit: Yes (2) Acute exacerbation of chronic obstructive airways disease Status: Acute Assessment and plan: nebs and steroids. bipap support as needed. Current Visit: No (3) Caloric malnutrition Status: Chronic Assessment and plan: severe protein calorie nutrition deficit. consulted GI for feeding tube and planned for this afternoon. Consents signed. Current Visit: Yes Medical - PN: Qual - VTE Deep Vein Thrombosis/Pulmonary Embolism Present on Admission: No
--- NOTE | 2018-03-19 15:27 | XRay Report ---
CLINICAL INFORMATION: pneumo follow up, post chest tube COMPARISON: 03/19/2018 1238 hours FINDINGS:15% right pneumothorax is unchanged from the x-ray two hours ago. Subcutaneous emphysema over the right lateral chest wall and neck is also unchanged. COPD changes with patchy infiltrates in both lungs, predominantly right upper and right lower lung alvarado, are also stable. Small right pleural effusion stable. Cardiomediastinal silhouette and pulmonary vessels IMPRESSION: No change in small (15% (right pneumothorax. Subcutaneous emphysema right lateral chest wall and neck unchanged COPD changes and small patchy bilateral infiltrates, predominantly in the right upper and lower lung alvarado, stable. Interpreted and Authenticated by: Adolfo De La Fuente 03/19/18
[2018-03-19] MEDS: LORazepam 2 MG/ML VIAL IV PRN (15:47)
[2018-03-19] MEDS: AZITHROMYCIN 500 MG in DEXTROSE 5% IN WATER 250 ML IV SCH (20:11)
[2018-03-20] MEDS: methylPREDNISolone SOD SUCC 40 MG/ML VIAL IV SCH ×4 (00:24→19:25)
[2018-03-20] MEDS: DEXTROSE 5%-NS W/20MEQ KCL 1,000 ML IV SCH ×2 (03:00→11:40)
[2018-03-20] MEDS: 0.9 % SODIUM CHLORIDE 10 ML SYRINGE IV SCH ×3 (05:39→20:45)
[2018-03-20 06:08] LABS: Basophils # (Auto) 0 K/mcL (0.0-0.3); Basophils % (Auto) 0 % (0.0-2.0); Eosinophils # (Auto) 0 K/mcL (0.0-0.7); Eosinophils % (Auto) 0 % (0.0-7.0); Lymphocytes # (Auto) 0.2 K/mcL (1.5-4.8); Lymphocytes % (Auto) 2.6 % (15.5-49.0); Mean Cell Volume 96.3 fL (80.0-100.0); Mean Corpuscular HGB Conc 32.3 g/dL (31.0-36.0); Mean Corpuscular Hemoglobin 31.1 pg (26.0-34.0); Monocytes # (Auto) 0.2 K/mcL (0.1-0.9); Monocytes % (Auto) 2.4 % (1.0-12.0); Platelet Count 183 K/mcL (140-440); RBC 3.71 M/mcL (4.50-5.90); Red Cell Distribution Width 15.9 % (11.5-14.5)
[2018-03-20 06:29] LABS: ALT/SGPT 46 U/l (0-40); Albumin 2.4 gm/dL (3.2-5.2); Albumin/Globulin Ratio 0.7 (1.0-2.3); Alkaline Phosphatase 106 U/L (39-117); Bilirubin,Direct < 0.2 mg/dL (0.0-0.3); Blood Urea Nitrogen 11 mg/dl (8-23); Gamma Glutamyl Transpeptidase 15 U/L (8-61)
[2018-03-20] MEDS: IPRATROPIUM/ALBUTEROL 3 ML AMPUL.NEB NEB PRN ×3 (07:03→23:12)
[2018-03-20] MEDS ORDERED: KETAMINE 10 MG/ML ML IV PRN (12:20)
[2018-03-20] MEDS ORDERED: MIDAZOLAM 2 MG/2 ML VIAL IV SCH (12:30)
[2018-03-20] MEDS ORDERED: PROPOFOL 200 MG/20 ML VIAL IV SCH (12:30)
[2018-03-20] MEDS ORDERED: KETAMINE 100 MG/ML ML IV ONE (14:45)
[2018-03-20] MEDS ORDERED: MIDAZOLAM 2 MG/2 ML VIAL IV ONE (14:45)
--- NOTE | 2018-03-20 15:40 | Operative Note ---
DATE OF OPERATION: 03/20/2018 PREPROCEDURE DIAGNOSES: Weight loss, oropharyngeal dysphagia, pulmonary fibrosis, chronic obstructive pulmonary disease. POSTPROCEDURE DIAGNOSES: Pulmonary fibrosis, weight loss, chronic obstructive pulmonary disease, oropharyngeal dysphagia, and gastritis with some blood or bleeding. PROCEDURE: Esophagogastroduodenoscopy with percutaneous endoscopic gastrostomy tube placement. SURGEON: Conrado Baugh M.D. INSTRUMENT USED: Olympus FAY GIF?160 endoscope? and EndoVive 20-Persian pull PEG or percutaneous endoscopic gastrostomy tube from [employer]. SPECIMENS OBTAINED: None. INDICATIONS: The patient is a 78-year-old gentleman referred by Dr. Francisco Sierra, one of the hospitalists. The patient's primary care provider is Dr. Zhang. The patient does have significant weight loss. He has pulmonary fibrosis, COPD and oropharyngeal dysphagia, I believe by history. PEG tube is requested to allow better enteral nutrition. INFORMED CONSENT: The procedure was reviewed with the relative, I believe the patient's sister. Risks and benefits were discussed. One of the risks that was discussed included . Additional risks that were also discussed included bleeding, reaction to medication, possible perforation, possible need for surgery. The patient's breathing is tenuous. Therefore Anesthesia did provide some sedation or antianxiety treatment primarily with ketamine. The patient tolerated the procedure well. IV MEDICATIONS USED: Please see anesthesia record. FINDINGS: ESOPHAGUS: Proximal, mid and distal esophagus normal. EG JUNCTION: This was around 45 cm. STOMACH: Cardia and fundus normal. Body and antrum: There were a few scattered areas of erythema noted. There was some minimal blood on the mucosa. PYLORUS: Normal. DUODENUM: This appeared normal. After the abdomen had been scrubbed with a cleansing agent, a drape was placed over this. A satisfactory site was chosen by indenting the anterior abdominal wall in a " fashion. Local anesthesia was accomplished with lidocaine. A small incision was made. Needle catheter was stabbed into the gastric cavity. Suture wire was placed through this and pulled out through the mouth using the endoscope and a snare. Gastrostomy tube was attached and pulled out through the anterior abdominal wall. Skin level was about 1.5 to 2 cm. The area was secured and dressed. INR prior to the procedure was about 1.1. The patient was on Zithromax. Therefore, no additional antibiotics were given. RECOMMENDATIONS: I would prefer the gastrostomy tube not be used today. An abdominal binder has been ordered. In the morning, we can test the gastrostomy tube with about 100 mL of water. If this is tolerated, then the tube may be used for feeding and medication as ordered. I would recommend the gastrostomy tube be flushed with about 30 to 50 mL of water three times a day and after medication and after bolus feeding. CRD:anum Job ID: [id number] Doc ID: [id number] Conrado Baugh MD
[2018-03-20] MEDS: DEXTROSE 5%-1/2NS 1,000 ML IV SCH (19:04)
--- NOTE | 2018-03-20 20:26 | Internal Med Progress Note ---
Medical - PN: Subj Patient information: Note initiated : 03/20/18 at 8:24 pm Service Date, if different from initiated Date: [] Patient: Yoel Valdes 78 y/o M admitted on 03/18/18 for Short of Breath/ Respiratory Failure. Chief Complaint: [] Interval history: Patient admitted with pulmonary cachexia and respirator failure this morning looked a little stronger. He was tolerating high flow O2 by nasal cannula and therefore was able to go to OR today and have PEG tube placed by Dr. Smallwood without need for intubation. Patient is verbal and does communicate with effort but less respirator distress this evening. - Constitutional Vitals: Vital Signs Temp Pulse Resp BP Pulse Ox 97.7 F 84 21 130/73 96 03/20/18 19:46 03/20/18 19:42 03/20/18 20:14 03/20/18 20:01 03/20/18 20:14 Period Temp Pulse Resp BP Sys/Lemus Pulse Ox Last 24 Hr 97.2 F-98.4 F 50-84 14-31 97-178/63-110 85-100 Intake and Output 03/20/18 03/20/18 03/20/18 05:59 13:59 21:59 Intake Total 1000 / 1000 867 / 867 Output Total 420 / 420 335 / 335 390 / 390 Balance 580 / 580 532 / 532 -390 / -390 Intake & Output: Intake & Output 03/20/18 03/20/18 03/20/18 05:59 13:59 21:59 Intake Total 1000 / 1000 867 / 867 Output Total 420 / 420 335 / 335 390 / 390 Balance 580 / 580 532 / 532 -390 / -390 Intake: IV 1000 / 1000 867 / 867 Dextrose 5%-Ns W/20Meq KCl 1, 1000 / 1000 867 / 867 000 ml @ 100 mls/hr IV .Q10H [facility] Rx#:[id number] Output: Urine Catheter Amount 420 / 420 300 / 300 390 / 390 Void Amount 35 / 35 Other: Urine Appearance Clear Clear Uretheral (Man) Clear Clear Urine Color Dark Yellow Dark Yellow Uretheral (Man) Dark Yellow Dark Yellow Urine Odor Strong Uretheral (Man) Normal Normal - Neck Neck exam: Present: normal inspection - Respiratory Respiratory exam: Present: decreased breath sounds, CTAB, prolonged expiratory phase Additional comments: Very poor air movement - Cardiovascular Cardiovascular exam: Present: normal rate and rhythm - Extremities Exam Extremities exam: Present: pedal edema Additional comments: 3+ - Skin Skin exam: Present: dry, warm Medical - PN: Obj Da - Labs CBC & Chem 7: 03/20/18 04:00 03/20/18 04:00 Labs: Abnormal Lab Results 03/20/18 03/20/18 03/18/18 04:00 04:00 03:59 WBC 11.4 H RBC 3.71 L 3.88 L Hgb 11.6 L 12.1 L Hct 35.7 L 36.3 L RDW 15.9 H 15.2 H Gran % 95.0 H 96.6 H Lymph % (Auto) 2.6 L 1.4 L Gran # 11.0 H Lymph # (Auto) 0.2 L 0.2 L VBG Lactic Acid Potassium 5.2 H POC Chloride Chloride Carbon Dioxide 33 H POC Total CO2 Creatinine 0.4 L Glucose 130 H POC Glucose AST 40 H ALT 46 H NT-Pro-B Natriuret Pep Albumin 2.4 L Globulin Albumin/Globulin Ratio 0.7 L 03/17/18 03/17/18 03/17/18 21:28 21:28 21:28 WBC RBC 4.22 L Hgb 13.1 L Hct 39.2 L RDW Gran % 93.1 H Lymph % (Auto) 2.2 L Gran # 9.7 H Lymph # (Auto) 0.2 L VBG Lactic Acid 3.1 H Potassium POC Chloride 89 L Chloride 89 L Carbon Dioxide 32 H POC Total CO2 34 H Creatinine Glucose 167 H POC Glucose 167 H AST 43 H ALT 61 H NT-Pro-B Natriuret Pep 1128.0 H Albumin 2.9 L Globulin 4.1 H Albumin/Globulin Ratio 0.7 L Meds: Medications Albuterol/Ipratropium (Duoneb) 3 ml NEB Q4HP PRN PRN Reason: Shortness Of Breath Last Admin: 03/20/18 19:44 Dose: 3 ml Dextrose/Sodium Chloride (Dextrose 5%-1/2ns Iv Solution) 1,000 mls @ 100 mls/ hr IV .Q10H [facility] Last Admin: 03/20/18 19:04 Dose: 100 mls/hr Lorazepam (Ativan) 0.5 mg IV Q2HP PRN PRN Reason: ANXIETY/SEDATION Last Admin: 03/19/18 15:47 Dose: 0.5 mg Methylprednisolone Sodium Succinate (Solu-Medrol) 40 mg IV Q6 [facility] Last Admin: 03/20/18 19:25 Dose: 40 mg Morphine Sulfate (Morphine) 2 mg IV Q3HP PRN PRN Reason: Pain Last Admin: 03/20/18 19:25 Dose: 2 mg Sodium Chloride (Saline Flush) 10 ml IV Q8 [facility] Last Admin: 03/20/18 16:01 Dose: 10 ml Medical - PN: A/P - Time Spent With Patient Total time spent is greater than 50% in coordination of care (as documented) at patient's floor/unit and/or counseling patient: Greater than 35 minutes (1) Respiratory failure Status: Acute Assessment and plan: acute on chronic with centrilobular emphysema, spont pneumothorax and pulm fibrosis. NOw with end stage pulmonary cachexia. I recommended hospice care but pt and family not ready for that change. Confirmed want full treatment and full code including intubation and feeding tube. G-tube has been placed successfully continue with high flow nasal cannula O2 and air. Current Visit: Yes (2) Acute exacerbation of chronic obstructive airways disease Status: Acute Assessment and plan: nebs and steroids. Tolerating high flow O2. Patient is breathing a little easier each day Current Visit: No (3) Caloric malnutrition Status: Chronic Assessment and plan: severe protein calorie nutrition deficit. G-tube in place and Dr. Smallwood expressed that we can use it in the morning. Will check CBC and chem panel for the morning. Current Visit: Yes - Narrative A/P Narrative: Critically ill patient with Pulmonary cachexia. Greater than 35 minutes spent in evaluation risk in this patient Medical - PN: Qual - VTE Deep Vein Thrombosis/Pulmonary Embolism Present on Admission: No
[2018-03-20] MEDS: LORazepam 2 MG/ML VIAL IV PRN (21:13)
[2018-03-21] MEDS: methylPREDNISolone SOD SUCC 40 MG/ML VIAL IV SCH ×4 (00:46→18:56)
[2018-03-21] MEDS: LORazepam 2 MG/ML VIAL IV PRN ×2 (00:47→21:08)
[2018-03-21] MEDS: DEXTROSE 5%-1/2NS 1,000 ML IV SCH ×3 (04:19→22:28)
[2018-03-21] MEDS: IPRATROPIUM/ALBUTEROL 3 ML AMPUL.NEB NEB PRN ×2 (04:20→22:33)
[2018-03-21] MEDS: 0.9 % SODIUM CHLORIDE 10 ML SYRINGE IV SCH ×3 (05:44→21:01)
[2018-03-21 05:53] LABS: ALT/SGPT 49 U/l (0-40); Albumin 2.2 gm/dL (3.2-5.2); Albumin/Globulin Ratio 0.6 (1.0-2.3); Alkaline Phosphatase 96 U/L (39-117); Blood Urea Nitrogen 11 mg/dl (8-23)
[2018-03-21 06:12] LABS: Basophils # (Auto) 0 K/mcL (0.0-0.3); Basophils % (Auto) 0.3 % (0.0-2.0); Eosinophils # (Auto) 0.1 K/mcL (0.0-0.7); Eosinophils % (Auto) 0.6 % (0.0-7.0); Granulocytes % (Auto) 96.4 % (38.0-78.0); Lymphocytes # (Auto) 0.2 K/mcL (1.5-4.8); Lymphocytes % (Auto) 1.9 % (15.5-49.0); Mean Corpuscular HGB Conc 33.8 g/dL (31.0-36.0); Mean Corpuscular Hemoglobin 31.8 pg (26.0-34.0); Monocytes # (Auto) 0.1 K/mcL (0.1-0.9); Monocytes % (Auto) 0.8 % (1.0-12.0); Platelet Count 125 K/mcL (140-440); RBC 4.28 M/mcL (4.50-5.90)
--- NOTE | 2018-03-21 07:56 | Internal Med Progress Note ---
Medical - PN: Subj Patient information: Note initiated : 03/21/18 at 7:54 am Service Date, if different from initiated Date: [] Patient: Yoel Valdes 78 y/o M admitted on 03/18/18 for Short of Breath/ Respiratory Failure. Chief Complaint: [] Interval history: PEG placed yesterday afternoon by Dr. Smallwood. Pt sleeping on high flow nasal canula but not awaken easily. saturation 100% not agitated. - Constitutional Vitals: Vital Signs Temp Pulse Resp BP Pulse Ox 97.8 F 68 14 144/90 99 03/21/18 07:01 03/21/18 07:00 03/21/18 07:07 03/21/18 07:01 03/21/18 07:07 Period Temp Pulse Resp BP Sys/Lemus Pulse Ox Last 24 Hr 97.7 F-98.4 F 55-84 13-31 105-178/71-110 85-100 Intake and Output 03/20/18 03/21/18 03/21/18 21:59 05:59 13:59 Intake Total 925 / 925 0 / 0 Output Total 470 / 470 310 / 310 60 / 60 Balance -470 / -470 615 / 615 -60 / -60 Weight 97 lb 1.6 oz Intake & Output: Intake & Output 03/20/18 03/21/18 03/21/18 21:59 05:59 13:59 Intake Total 925 / 925 0 / 0 Output Total 470 / 470 310 / 310 60 / 60 Balance -470 / -470 615 / 615 -60 / -60 Weight 97 lb 1.6 oz Intake: IV 925 / 925 Dextrose 5%-1/2Ns IV Solution 1 925 / 925 ,000 ml @ 100 mls/hr IV .Q10H [facility] Rx#:[id number] Oral 0 / 0 Output: Urine Catheter Amount 470 / 470 310 / 310 60 / 60 Other: Urine Appearance Clear Uretheral (Man) Clear Urine Color Dark Yellow Uretheral (Man) Dark Yellow Urine Odor Uretheral (Man) Strong General appearance: no acute distress, thin (cachectic) - Respiratory Respiratory exam: Present: CTAB, prolonged expiratory phase. Absent: rales, wheezes - Cardiovascular Cardiovascular exam: Present: normal rate and rhythm - GI/Abdominal GI/Abdominal exam: Present: normal bowel sounds, soft. Absent: rebound, rigid Additional comments: g tube in place no site bleeding or discharge - Extremities Exam Extremities exam: Present: pedal edema (1+) - Skin Skin exam: Present: dry, warm Medical - PN: Obj Da - Labs CBC & Chem 7: 03/21/18 03:55 03/21/18 03:55 Labs: Abnormal Lab Results 03/21/18 03/21/18 03/20/18 03:55 03:55 04:00 WBC 11.9 H RBC 4.28 L Hgb Hct 40.3 L RDW 15.0 H Plt Count 125 L Gran % 96.4 H Lymph % (Auto) 1.9 L [place] % (Auto) 0.8 L Gran # 11.5 H Lymph # (Auto) 0.2 L Sodium 146 H Potassium 5.2 H Carbon Dioxide 35 H 33 H Anion Gap 6.0 L Creatinine 0.4 L 0.4 L Glucose 119 H 130 H Calcium 8.3 L AST 48 H 40 H ALT 49 H 46 H Total Protein 5.8 L Albumin 2.2 L 2.4 L Albumin/Globulin Ratio 0.6 L 0.7 L 03/20/18 04:00 WBC RBC 3.71 L Hgb 11.6 L Hct 35.7 L RDW 15.9 H Plt Count Gran % 95.0 H Lymph % (Auto) 2.6 L [place] % (Auto) Gran # Lymph # (Auto) 0.2 L Sodium Potassium Carbon Dioxide Anion Gap Creatinine Glucose Calcium AST ALT Total Protein Albumin Albumin/Globulin Ratio Meds: Medications Albuterol/Ipratropium (Duoneb) 3 ml NEB Q4HP PRN PRN Reason: Shortness Of Breath Last Admin: 03/21/18 04:20 Dose: 3 ml Dextrose/Sodium Chloride (Dextrose 5%-1/2ns Iv Solution) 1,000 mls @ 100 mls/ hr IV .Q10H [facility] Last Admin: 03/21/18 04:19 Dose: 100 mls/hr Lorazepam (Ativan) 0.5 mg IV Q2HP PRN PRN Reason: ANXIETY/SEDATION Last Admin: 03/21/18 00:47 Dose: 0.5 mg Methylprednisolone Sodium Succinate (Solu-Medrol) 40 mg IV Q6 [facility] Last Admin: 03/21/18 05:44 Dose: 40 mg Morphine Sulfate (Morphine) 2 mg IV Q3HP PRN PRN Reason: Pain Last Admin: 03/21/18 06:55 Dose: 2 mg Sodium Chloride (Saline Flush) 10 ml IV Q8 [facility] Last Admin: 03/21/18 05:44 Dose: 10 ml Medical - PN: A/P - Time Spent With Patient Total time spent is greater than 50% in coordination of care (as documented) at patient's floor/unit and/or counseling patient: Greater than 35 minutes (1) Respiratory failure Status: Acute Assessment and plan: acute on chronic with centrilobular emphysema, spont pneumothorax and pulm fibrosis. NOw with end stage pulmonary cachexia. I recommended hospice care but pt and family not ready for that change. Confirmed want full treatment and full code including intubation and feeding tube. G-tube has been placed successfully continue with high flow nasal cannula O2 and air. decrease goal oxygen saturation to 90%. May need to resume BIPAP if not more alert after 2 hours with this change. Current Visit: Yes (2) Acute exacerbation of chronic obstructive airways disease Status: Acute Assessment and plan: nebs and steroids. some CO2 retention worsening. adjust O2 Patient is breathing a little easier each day Current Visit: Yes (3) Caloric malnutrition Status: Chronic Assessment and plan: severe protein calorie nutrition deficit. G-tube in place and Dr. Smallwood expressed that we can use it in the morning. start tube feeds at 20cc /hr and titrate slowly to goal Current Visit: Yes - Narrative A/P Narrative: 35 mins critical care time. Per pt and family wishes he is receiving full treatment Medical - PN: Qual - VTE Deep Vein Thrombosis/Pulmonary Embolism Present on Admission: No
[2018-03-21 13:28] LABS: Prealbumin 5.8 mg/dl (20-40)
[2018-03-21] MEDS: CHLORHEXIDINE GLUCONATE 1 ML ORAL.SOL SWABMOUTH SCH (20:28)
[2018-03-22] MEDS: methylPREDNISolone SOD SUCC 40 MG/ML VIAL IV SCH ×5 (00:22→23:34)
[2018-03-22] MEDS: DEXTROSE 5%-1/2NS 1,000 ML IV SCH ×2 (05:40→08:10)
[2018-03-22] MEDS: 0.9 % SODIUM CHLORIDE 10 ML SYRINGE IV SCH ×3 (05:43→23:34)
[2018-03-22 06:30] LABS: Basophils # (Auto) 0 K/mcL (0.0-0.3); Basophils % (Auto) 0.5 % (0.0-2.0); Eosinophils # (Auto) 0.1 K/mcL (0.0-0.7); Eosinophils % (Auto) 0.7 % (0.0-7.0); Granulocytes % (Auto) 93.4 % (38.0-78.0); Lymphocytes # (Auto) 0.3 K/mcL (1.5-4.8); Lymphocytes % (Auto) 3.6 % (15.5-49.0); Mean Cell Volume 94.8 fL (80.0-100.0); Mean Corpuscular HGB Conc 35.6 g/dL (31.0-36.0); Mean Corpuscular Hemoglobin 33.8 pg (26.0-34.0); Monocytes # (Auto) 0.1 K/mcL (0.1-0.9); Monocytes % (Auto) 1.8 % (1.0-12.0); Platelet Count 118 K/mcL (140-440); RBC 4.76 M/mcL (4.50-5.90); Red Cell Distribution Width 14.7 % (11.5-14.5)
[2018-03-22 07:54] LABS: ALT/SGPT 44 U/l (0-40); Albumin 2.3 gm/dL (3.2-5.2); Albumin/Globulin Ratio 0.6 (1.0-2.3); Alkaline Phosphatase 90 U/L (39-117); Bilirubin,Direct < 0.2 mg/dL (0.0-0.3); Blood Urea Nitrogen 9 mg/dl (8-23); Gamma Glutamyl Transpeptidase 15 U/L (8-61); Uric Acid 2.1 mg/dL (2.5-8.0)
--- NOTE | 2018-03-22 08:02 | XRay Report ---
CLINICAL INFORMATION: pneumothorax follow up COMPARISON: 03/19/2018 FINDINGS: Heart size, mediastinum and pulmonary vessels are normal. 15% pneumothorax in the lateral right upper thorax and apex is unchanged. Subcutaneous emphysema over the right lateral chest wall and neck as decreased slightly. Severe COPD changes with moderate patchy infiltrates in the right lobes show slight progression. Small right and tiny left pleural effusion are unchanged IMPRESSION: 1. No change in 15% pneumothorax in the lateral right upper lobe and apex. Subcutaneous emphysema in the right lateral chest wall and neck has diminished modestly Small right pleural effusion also stable 2. Severe COPD with moderate patchy infiltrate in the right upper and lower lung with a smaller infiltrate left lower lung shows slight progression Interpreted and Authenticated by: Adolfo De La Fuente 03/22/18
[2018-03-22] MEDS ORDERED: DEXTROSE 5%-1/2NS 1,000 ML IV SCH (09:18)
[2018-03-22] MEDS: CHLORHEXIDINE GLUCONATE 1 ML ORAL.SOL SWABMOUTH SCH ×2 (09:59→20:00)
[2018-03-22] MEDS: LEVOFLOXACIN 750 MG/150 ML BAG IV SCH (10:35)
[2018-03-22] MEDS: IPRATROPIUM/ALBUTEROL 3 ML AMPUL.NEB NEB SCH ×4 (11:21→23:06)
[2018-03-22] MEDS: MULTIVITAMINS,THERAPEUTIC 1 ML ORAL.SOL PT SCH (11:29)
[2018-03-22] MEDS: DEXTROSE 5% IN WATER 1,000 ML IV SCH ×2 (11:34→21:30)
[2018-03-22] MEDS: metroNIDAZOLE 500 MG/100 ML BAG IV SCH ×2 (12:05→21:30)
--- NOTE | 2018-03-22 19:05 | Internal Med Progress Note ---
Medical - PN: Subj Patient information: Note initiated : 03/22/18 at 7:01 pm Service Date, if different from initiated Date: [] Patient: Yoel Valdes 78 y/o M admitted on 03/18/18 for Short of Breath/ Respiratory Failure. Chief Complaint: [] Interval history: This is a 78-year-old male with severe history of emphysema, pulmonary fibrosis admitted to the hospital for acute hypoxic hypercapnic respiratory failure on BiPAP, right sided pneumothorax spontaneous. Patient has been so far managed with BiPAP duo nebs and steroids. Antibiotics added today. Chest x-ray reviewed had some worsening infiltrate and therefore antibiotics were added. Patient has not clinically improved since the time of admission today is day 6. Patient was given a trial without BiPAP within an hour the patient's CO2 level azar significantly and patient seemed to be getting tired. Placed back on BiPAP treatment. Given his significant weight loss his severe COPD and pulmonary fibrosis I reviewed with the patient is family goals of care and if hospice treatment would be more appropriate. Patient's family reviewed the available data and understood the overall poor prognosis. Dr. Verdin also spoke with the patient 's family. I have explained to the patient's family that further treatment for this patient would not be possible in this facility as the next step would be a tracheostomy as he is not responding to BiPAP treatment. The patient's brother notes that the patient did not wish to be on a ventilator and would rather be home. The family members have not yet made up their mind on withdrawal of care and would like 24 hours to discuss this among their own family. Patient opens his eyes and tries to follow some commands however is not able to speak much. Pertinent ROS: unable Additional PMFSH (Level 3 Only): Medical History (Last Reviewed 01/02/18 @ 16:08 by REYNA Waite) Gastroesophageal reflux disease (Chronic) Fibrosis lung (Chronic) Lung nodule (Suspected) Serum glucose decreased (Chronic) Lower respiratory tract infection (Chronic) Injury of radial nerve (Chronic) Nerve injury (Chronic) Pain in forearm (Chronic) Nuclear sclerosis (Chronic) Chalazion (Chronic) Pain in toe (Chronic) Abdominal pain, RUQ (Acute) Cholecystitis, acute (Acute) Emphysema of lung (Chronic) Hernia, inguinal, right (Acute) Cough (Chronic) Acute bronchitis (Chronic) COPD (chronic obstructive pulmonary disease) (Chronic) Scarring of lung (Chronic) Sexually transmitted disease (STD) (Resolved) - Constitutional Vitals: Vital Signs Temp Pulse Resp BP Pulse Ox 98.4 F 129 H 26 H 121/82 100 03/22/18 16:01 03/22/18 18:25 03/22/18 18:25 03/22/18 18:01 03/22/18 18:25 Period Temp Pulse Resp BP Sys/Lemus Pulse Ox Last 24 Hr 97.6 F-98.4 F 66-129 15-27 114-159/76-96 88-100 Intake and Output 03/22/18 03/22/18 03/22/18 05:59 13:59 21:59 Intake Total 1247 / 1247 2763 / 2763 979 / 979 Output Total 610 / 610 250 / 250 300 / 300 Balance 637 / 637 2513 / 2513 679 / 679 Intake & Output: Intake & Output 03/22/18 03/22/18 03/22/18 05:59 13:59 21:59 Intake Total 1247 / 1247 2763 / 2763 979 / 979 Output Total 610 / 610 250 / 250 300 / 300 Balance 637 / 637 2513 / 2513 679 / 679 Intake: IV 907 / 907 2583 / 2583 Dextrose 5%-1/2Ns IV Solution 1 907 / 907 1333 / 1333 ,000 ml @ 100 mls/hr IV .Q10H [facility] Rx#:[id number] Tube Feeding 280 / 280 879 / 879 GI Tube Flush 60 / 60 180 / 180 100 / 100 Output: Urine Catheter Amount 610 / 610 250 / 250 300 / 300 Other: Percent of Meal Consumed tube fed Urine Appearance Clear Clear Uretheral (Man) Clear Clear Clear Urine Color Bright Yellow Dark Yellow Bright Yellow Uretheral (Man) Bright Yellow Dark Yellow Dark Yellow Exam: Constitutional; Afebrile, cooperative, drowsy, on bipap not in distress. in resp distress if bipap is taken off, cachetic pt Eyes- No icterus, , No periorbital swelling Ears- Ext ear normal, Neck- Midline trachea, supple Respiratory system: Air Entry equal on both sides, dimished air entry bilaterally, chest crepitus present right side, prolonged exp phase. CVS- Rate rhythm regular, S1,S2 heard, no gallop, no rub. Abdomen- Soft nontender abdomen, no organomegaly, no tenderness, no guarding or rigidity, CHRISTIAN COUNSELOR- AOOx1, moving all extremities, no gross focal deficit noted. Medical - PN: Obj Da - Labs CBC & Chem 7: 03/22/18 03:54 03/22/18 03:54 Labs: Abnormal Lab Results 03/22/18 03/22/18 03/21/18 03:54 03:54 11:45 WBC RBC Hgb Hct RDW 14.7 H Plt Count 118 L Gran % 93.4 H Lymph % (Auto) 3.6 L [place] % (Auto) Gran # Lymph # (Auto) 0.3 L Sodium 149 H Potassium Carbon Dioxide 32 H Anion Gap Creatinine 0.4 L Glucose 134 H Uric Acid 2.1 L Calcium Phosphorus 2.5 L AST ALT 44 H Lactate Dehydrogenase 270 H Total Protein Albumin 2.3 L Albumin/Globulin Ratio 0.6 L Prealbumin 5.8 L 03/21/18 03/21/18 03/20/18 03:55 03:55 04:00 WBC 11.9 H RBC 4.28 L Hgb Hct 40.3 L RDW 15.0 H Plt Count 125 L Gran % 96.4 H Lymph % (Auto) 1.9 L [place] % (Auto) 0.8 L Gran # 11.5 H Lymph # (Auto) 0.2 L Sodium 146 H Potassium 5.2 H Carbon Dioxide 35 H 33 H Anion Gap 6.0 L Creatinine 0.4 L 0.4 L Glucose 119 H 130 H Uric Acid Calcium 8.3 L Phosphorus AST 48 H 40 H ALT 49 H 46 H Lactate Dehydrogenase Total Protein 5.8 L Albumin 2.2 L 2.4 L Albumin/Globulin Ratio 0.6 L 0.7 L Prealbumin 03/20/18 04:00 WBC RBC 3.71 L Hgb 11.6 L Hct 35.7 L RDW 15.9 H Plt Count Gran % 95.0 H Lymph % (Auto) 2.6 L [place] % (Auto) Gran # Lymph # (Auto) 0.2 L Sodium Potassium Carbon Dioxide Anion Gap Creatinine Glucose Uric Acid Calcium Phosphorus AST ALT Lactate Dehydrogenase Total Protein Albumin Albumin/Globulin Ratio Prealbumin Meds: Medications Albuterol/Ipratropium (Duoneb) 3 ml NEB Q4HRT [facility] Last Admin: 03/22/18 18:23 Dose: 3 ml Chlorhexidine Gluconate (Peridex) 15 ml SWABMOUTH BID [facility] Last Admin: 03/22/18 09:59 Dose: Not Given Levofloxacin (Levaquin) 750 mg in 150 mls @ 100 mls/hr IV Q24H [facility] Last Infusion: 03/22/18 12:10 Dose: Infused Metronidazole (Flagyl) 500 mg in 100 mls @ 100 mls/hr IV Q8H [facility] Last Infusion: 03/22/18 13:10 Dose: Infused Dextrose (Dextrose 5% In Water) 1,000 mls @ 100 mls/hr IV .Q10H [facility] Last Admin: 03/22/18 11:34 Dose: 100 mls/hr Lorazepam (Ativan) 0.5 mg IV Q2HP PRN PRN Reason: ANXIETY/SEDATION Last Admin: 03/21/18 21:08 Dose: 0.5 mg Methylprednisolone Sodium Succinate (Solu-Medrol) 40 mg IV Q6 [facility] Last Admin: 03/22/18 17:30 Dose: 40 mg Morphine Sulfate (Morphine) 2 mg IV Q3HP PRN PRN Reason: Pain Last Admin: 03/22/18 04:26 Dose: 2 mg Multivitamins (Thera-Plus) 5 ml PT DAILY [facility] Last Admin: 03/22/18 11:29 Dose: 5 ml Sodium Chloride (Saline Flush) 10 ml IV Q8 [facility] Last Admin: 03/22/18 15:19 Dose: 10 ml Medical - PN: A/P - Time Spent With Patient Total time spent is greater than 50% in coordination of care (as documented) at patient's floor/unit and/or counseling patient: - Narrative A/P Narrative: A/P Acute hypoxic, HYpercapenic Respipratory failure Pneumonia, possible aspiration Pulmonar fibrosis Acute copd exacerbation Severe Emphysema Severe malnutrition, bmi 15 Reflus disease Anemia Thrombocytopenia due to infection?, not on heparin Hypernatremia Hemoconcentration, Plan Continue on bipap IV levofloxacin and metronidazone started on IV steroids Duonebs q4hrs Feeding via peg tube and IVF, D5 water for now SCD for DVT prophylaxis DIet via peg limited code Spent > 60 mins reviewing chart, care coordination, abg, cxr review, lab review. Discussion of goals of care with family Medical - PN: Qual - VTE Deep Vein Thrombosis/Pulmonary Embolism Present on Admission: No
[2018-03-22] MEDS: LORazepam 2 MG/ML VIAL IV PRN (20:00)
[2018-03-23] MEDS: LORazepam 2 MG/ML VIAL IV PRN ×3 (00:57→14:00)
[2018-03-23] MEDS: IPRATROPIUM/ALBUTEROL 3 ML AMPUL.NEB NEB SCH ×6 (03:09→23:00)
[2018-03-23] MEDS: methylPREDNISolone SOD SUCC 40 MG/ML VIAL IV SCH ×3 (05:46→17:28)
[2018-03-23] MEDS: metroNIDAZOLE 500 MG/100 ML BAG IV SCH ×3 (05:47→21:43)
[2018-03-23] MEDS: 0.9 % SODIUM CHLORIDE 10 ML SYRINGE IV SCH ×3 (05:47→12:08)
[2018-03-23 06:26] LABS: Basophils # (Auto) 0 K/mcL (0.0-0.3); Basophils % (Auto) 0 % (0.0-2.0); Eosinophils # (Auto) 0 K/mcL (0.0-0.7); Eosinophils % (Auto) 0 % (0.0-7.0); Granulocytes % (Auto) 97.6 % (38.0-78.0); Lymphocytes # (Auto) 0.1 K/mcL (1.5-4.8); Lymphocytes % (Auto) 1.5 % (15.5-49.0); Mean Corpuscular HGB Conc 32.7 g/dL (31.0-36.0); Mean Corpuscular Hemoglobin 31.1 pg (26.0-34.0); Monocytes # (Auto) 0.1 K/mcL (0.1-0.9); Monocytes % (Auto) 0.9 % (1.0-12.0); Platelet Count 134 K/mcL (140-440); RBC 3.81 M/mcL (4.50-5.90); Red Cell Distribution Width 15.3 % (11.5-14.5)
[2018-03-23 06:50] LABS: ALT/SGPT 57 U/l (0-40); Albumin 2.1 gm/dL (3.2-5.2); Albumin/Globulin Ratio 0.6 (1.0-2.3); Alkaline Phosphatase 107 U/L (39-117); Bilirubin,Direct < 0.2 mg/dL (0.0-0.3); Blood Urea Nitrogen 10 mg/dl (8-23); Gamma Glutamyl Transpeptidase 16 U/L (8-61); Uric Acid 1.3 mg/dL (2.5-8.0)
[2018-03-23] MEDS: DEXTROSE 5% IN WATER 1,000 ML IV SCH ×2 (07:20→17:28)
--- NOTE | 2018-03-23 09:26 | XRay Report ---
CLINICAL INFORMATION: pneumothorax COMPARISON: 03/22/2018 FINDINGS: Heart size, mediastinum and pulmonary vessels are normal. There are COPD changes with mild patchy infiltrates in both lungs which minimally improved. Right pneumothorax has worsened - now approximately 20%. Small right pleural effusion noted. Subcutaneous emphysema in the right lateral chest wall unchanged. IMPRESSION: Slight worsening right pneumothorax now approximately 20%. Small right pleural effusion noted. There are COPD Patchy bilateral infiltrates, predominantly on the right side, slightly improved Interpreted and Authenticated by: Adolfo De La Fuente 03/23/18
[2018-03-23] MEDS: LEVOFLOXACIN 750 MG/150 ML BAG IV SCH (10:47)
[2018-03-23] MEDS: MULTIVITAMINS,THERAPEUTIC 1 ML ORAL.SOL PT SCH (10:47)
[2018-03-23] MEDS: CHLORHEXIDINE GLUCONATE 1 ML ORAL.SOL SWABMOUTH SCH ×2 (10:48→20:04)
[2018-03-23] MEDS: DEXTROSE 5%-NS W/20MEQ KCL 1,000 ML IV SCH (12:27)
--- NOTE | 2018-03-23 14:26 | Internal Med Progress Note ---
Medical - PN: Subj Patient information: Note initiated : 03/23/18 at 2:24 pm Service Date, if different from initiated Date: [] Patient: Yoel Valdes 78 y/o M admitted on 03/18/18 for Short of Breath/ Respiratory Failure. Chief Complaint: [] Interval history: This is a 78-year-old male with severe history of emphysema, pulmonary fibrosis admitted to the hospital for acute hypoxic hypercapnic respiratory failure on BiPAP, right sided pneumothorax spontaneous. Patient has been so far managed with BiPAP duo nebs and steroids. Antibiotics added today. Chest x-ray reviewed had some worsening infiltrate and therefore antibiotics were added. Patient has not clinically improved since the time of admission today is day 6. Patient was given a trial without BiPAP within an hour the patient's CO2 level azar significantly and patient seemed to be getting tired. Placed back on BiPAP treatment. Given his significant weight loss his severe COPD and pulmonary fibrosis I reviewed with the patient is family goals of care and if hospice treatment would be more appropriate. Patient's family reviewed the available data and understood the overall poor prognosis. Dr. Verdin also spoke with the patient 's family. I have explained to the patient's family that further treatment for this patient would not be possible in this facility as the next step would be a tracheostomy as he is not responding to BiPAP treatment. The patient's brother notes that the patient did not wish to be on a ventilator and would rather be home. The family members have not yet made up their mind on withdrawal of care and would like 24 hours to discuss this among their own family. Patient opens his eyes and tries to follow some commands however is not able to speak much. 03/23 Patient seen and examined, no acute overnight events, mental status practically unchanged. He is awake intermittently tries to pick at things, sometimes follows commands. Plan of care was reviewed with family yesterday I am yet to hear from them with regards to her final decision. I am awaiting the decision to decide if the patient can be transferred to a higher level of care which is needed for ongoing medical treatment versus palliative and hospice care. Chest x-ray was reviewed, shows slight worsening of the pneumothorax in the right side, progressed from 15% to 20%. Pertinent ROS: unable - Constitutional Vitals: Vital Signs Temp Pulse Resp BP Pulse Ox 97.9 F 97 H 21 96/69 97 03/23/18 06:59 03/23/18 11:37 03/23/18 11:37 03/23/18 13:01 03/23/18 13:26 Period Temp Pulse Resp BP Sys/Lemus Pulse Ox Last 24 Hr 97.4 F-98.4 F 73-129 14-26 96-172/67-106 89-100 Intake and Output 03/23/18 03/23/18 03/23/18 05:59 13:59 21:59 Intake Total 1067 / 1067 1233 / 1233 Output Total 730 / 730 720 / 720 60 / 60 Balance 337 / 337 513 / 513 -60 / -60 Intake & Output: Intake & Output 03/23/18 03/23/18 03/23/18 05:59 13:59 21:59 Intake Total 1067 / 1067 1233 / 1233 Output Total 730 / 730 720 / 720 60 / 60 Balance 337 / 337 513 / 513 -60 / -60 Intake: IV 100 / 100 1233 / 1233 Dextrose 5% in Water 1,000 ml @ 983 / 983 100 mls/hr IV .Q10H [facility] Rx#: [id number] Tube Feeding 847 / 847 GI Tube Flush 120 / 120 Output: Urine Catheter Amount 730 / 730 720 / 720 60 / 60 Other: Urine Appearance Clear Uretheral (Man) Clear Urine Color Straw Uretheral (Man) Straw Exam: Constitutional; Afebrile, drowsy, obese, and sometimes on BiPAP. Not in distress Eyes- No icterus, ,. Neck- Midline trachea, supple Respiratory system: Air Entry equal on both sides, improved air entry today compared to yesterday. Prolonged expiratory phase, bilateral crackles present. CVS- Rate rhythm regular, S1,S2 heard, no gallop, no rub. Abdomen- Soft nontender abdomen, no organomegaly, no tenderness, no guarding or rigidity, DIRECTOR DATA PROCESSING- AOOx1, moving all extremities, no gross focal deficit noted. Medical - PN: Obj Da - Labs CBC & Chem 7: 03/23/18 03:50 03/23/18 03:50 Labs: Abnormal Lab Results 03/23/18 03/23/18 03/22/18 03:50 03:50 03:54 WBC RBC 3.81 L Hgb 11.8 L Hct 36.2 L RDW 15.3 H Plt Count 134 L Gran % 97.6 H Lymph % (Auto) 1.5 L [place] % (Auto) 0.9 L Gran # 9.1 H Lymph # (Auto) 0.1 L Sodium 149 H Chloride 94 L Carbon Dioxide 39 H 32 H Anion Gap 5.0 L Creatinine 0.3 L 0.4 L Glucose 138 H 134 H Uric Acid 1.3 L 2.1 L Calcium 8.2 L Phosphorus 2.1 L 2.5 L AST 48 H ALT 57 H 44 H Lactate Dehydrogenase 262 H 270 H Total Protein 5.4 L Albumin 2.1 L 2.3 L Albumin/Globulin Ratio 0.6 L 0.6 L Prealbumin 03/22/18 03/21/18 03/21/18 03:54 11:45 03:55 WBC RBC Hgb Hct RDW 14.7 H Plt Count 118 L Gran % 93.4 H Lymph % (Auto) 3.6 L [place] % (Auto) Gran # Lymph # (Auto) 0.3 L Sodium 146 H Chloride Carbon Dioxide 35 H Anion Gap 6.0 L Creatinine 0.4 L Glucose 119 H Uric Acid Calcium 8.3 L Phosphorus AST 48 H ALT 49 H Lactate Dehydrogenase Total Protein 5.8 L Albumin 2.2 L Albumin/Globulin Ratio 0.6 L Prealbumin 5.8 L 03/21/18 03:55 WBC 11.9 H RBC 4.28 L Hgb Hct 40.3 L RDW 15.0 H Plt Count 125 L Gran % 96.4 H Lymph % (Auto) 1.9 L [place] % (Auto) 0.8 L Gran # 11.5 H Lymph # (Auto) 0.2 L Sodium Chloride Carbon Dioxide Anion Gap Creatinine Glucose Uric Acid Calcium Phosphorus AST ALT Lactate Dehydrogenase Total Protein Albumin Albumin/Globulin Ratio Prealbumin Meds: Medications Albuterol/Ipratropium (Duoneb) 3 ml NEB Q4HRT [facility] Last Admin: 03/23/18 11:36 Dose: 3 ml Chlorhexidine Gluconate (Peridex) 15 ml SWABMOUTH BID [facility] Last Admin: 03/23/18 10:48 Dose: 15 ml Levofloxacin (Levaquin) 750 mg in 150 mls @ 100 mls/hr IV Q24H [facility] Last Infusion: 03/23/18 12:25 Dose: Infused Metronidazole (Flagyl) 500 mg in 100 mls @ 100 mls/hr IV Q8H [facility] Last Infusion: 03/23/18 07:10 Dose: Infused Dextrose (Dextrose 5% In Water) 1,000 mls @ 100 mls/hr IV .Q10H [facility] Last Admin: 03/23/18 07:20 Dose: 100 mls/hr Lorazepam (Ativan) 0.5 mg IV Q2HP PRN PRN Reason: ANXIETY/SEDATION Last Admin: 03/23/18 14:00 Dose: 0.5 mg Methylprednisolone Sodium Succinate (Solu-Medrol) 40 mg IV Q6 [facility] Last Admin: 03/23/18 12:07 Dose: 40 mg Morphine Sulfate (Morphine) 2 mg IV Q3HP PRN PRN Reason: Pain Last Admin: 03/23/18 12:04 Dose: 2 mg Multivitamins (Thera-Plus) 5 ml PT DAILY [facility] Last Admin: 03/23/18 10:47 Dose: 5 ml Sodium Chloride (Saline Flush) 10 ml IV Q8 [facility] Last Admin: 03/23/18 12:08 Dose: 10 ml Medical - PN: A/P - Time Spent With Patient Total time spent is greater than 50% in coordination of care (as documented) at patient's floor/unit and/or counseling patient: - Narrative A/P Narrative: A/P Acute hypoxic, HYpercapenic Respipratory failure, on NIPPV Pneumonia, possible aspiration Pulmonar fibrosis Acute copd exacerbation Severe Emphysema Severe malnutrition, bmi 15 Reflus disease Anemia Thrombocytopenia due to infection?, not on heparin, pllatlets stable. Hypernatremia- resolved Hemoconcentration, - resolved Plan Continue on bipap IV levofloxacin and metronidazone started, day 2 today pneumothorax is slightly worse, increased oxygen to 30% fio2 on IV steroids Duonebs q4hrs Feeding via peg tube and IVF, D5 water for now SCD for DVT prophylaxis DIet via peg limited code Spent > 60 mins reviewing chart, care coordination, abg, cxr review, lab review. Discussion of goals of care with family, family now wishes to wait till sunday, and if no improvement will withdrawal care, it seems. Refused transfer to higher level of care Medical - PN: Qual - VTE Deep Vein Thrombosis/Pulmonary Embolism Present on Admission: No
[2018-03-24] MEDS: methylPREDNISolone SOD SUCC 40 MG/ML VIAL IV SCH ×2 (00:10→06:11)
[2018-03-24] MEDS: LORazepam 2 MG/ML VIAL IV PRN ×4 (02:07→15:33)
[2018-03-24] MEDS: DEXTROSE 5% IN WATER 1,000 ML IV SCH (03:57)
[2018-03-24] MEDS: IPRATROPIUM/ALBUTEROL 3 ML AMPUL.NEB NEB SCH ×4 (04:13→15:06)
[2018-03-24] MEDS: metroNIDAZOLE 500 MG/100 ML BAG IV SCH ×2 (06:11→14:19)
[2018-03-24] MEDS: 0.9 % SODIUM CHLORIDE 10 ML SYRINGE IV SCH ×2 (06:11)
[2018-03-24 06:36] LABS: Basophils # (Auto) 0 K/mcL (0.0-0.3); Basophils % (Auto) 0.1 % (0.0-2.0); Eosinophils # (Auto) 0 K/mcL (0.0-0.7); Eosinophils % (Auto) 0.1 % (0.0-7.0); Granulocytes % (Auto) 96.7 % (38.0-78.0); Lymphocytes # (Auto) 0.2 K/mcL (1.5-4.8); Lymphocytes % (Auto) 1.6 % (15.5-49.0); Mean Cell Volume 95.9 fL (80.0-100.0); Mean Corpuscular HGB Conc 32.8 g/dL (31.0-36.0); Mean Corpuscular Hemoglobin 31.4 pg (26.0-34.0); Monocytes # (Auto) 0.2 K/mcL (0.1-0.9); Monocytes % (Auto) 1.5 % (1.0-12.0); Platelet Count 134 K/mcL (140-440); RBC 4.32 M/mcL (4.50-5.90); Red Cell Distribution Width 15.1 % (11.5-14.5)
[2018-03-24 07:17] LABS: ALT/SGPT 54 U/l (0-40); Albumin 1.9 gm/dL (3.2-5.2); Albumin/Globulin Ratio 0.5 (1.0-2.3); Alkaline Phosphatase 105 U/L (39-117); Bilirubin,Direct < 0.2 mg/dL (0.0-0.3); Blood Urea Nitrogen 11 mg/dl (8-23); Gamma Glutamyl Transpeptidase 16 U/L (8-61); Uric Acid 1.3 mg/dL (2.5-8.0)
[2018-03-24] MEDS: LEVOFLOXACIN 750 MG/150 ML BAG IV SCH (10:20)
[2018-03-24] MEDS: CHLORHEXIDINE GLUCONATE 1 ML ORAL.SOL SWABMOUTH SCH (10:20)
[2018-03-24] MEDS: MULTIVITAMINS,THERAPEUTIC 1 ML ORAL.SOL PT SCH (10:20)
--- NOTE | 2018-03-24 10:23 | XRay Report ---
CLINICAL INFORMATION: pneumothorax COMPARISON: 03/23/2018 FINDINGS: 15-20% right pneumothorax show slight improvement from previous study. Small right pleural effusion is unchanged. Severe COPD with moderate patchy infiltrates in the right upper and lower lung alvarado show slight worsening. Significant emphysema in the the right lateral chest wall is unchanged IMPRESSION: 1. Equivocal improvement in the right pneumothorax estimated between 15-20%. It is predominantly in the right upper lobe region. Small right pleural effusion unchanged 2. Severe COPD 3. Moderate patchy infiltrates in the right upper and lower lung alvarado show slight worsening Interpreted and Authenticated by: Adolfo De La Fuente 03/24/18
[2018-03-24] MEDS ORDERED: LACTOPEROXI/GLUC OXID/POT THIO 1 EACH GEL..EA. TOPICAL PRN ×2 (11:00→16:05)
[2018-03-24] MEDS ORDERED: ONDANSETRON 4 MG/2 ML VIAL IV PRN ×2 (11:00→16:05)
--- NOTE | 2018-03-24 13:46 | Internal Med Progress Note ---
Medical - PN: Subj Patient information: Note initiated : 03/24/18 at 1:44 pm Service Date, if different from initiated Date: [] Patient: Yoel Valdes 78 y/o M admitted on 03/18/18 for Short of Breath/ Respiratory Failure. Chief Complaint: [] Interval history: This is a 78-year-old male with severe history of emphysema, pulmonary fibrosis admitted to the hospital for acute hypoxic hypercapnic respiratory failure on BiPAP, right sided pneumothorax spontaneous. Patient has been so far managed with BiPAP duo nebs and steroids. Antibiotics added today. Chest x-ray reviewed had some worsening infiltrate and therefore antibiotics were added. Patient has not clinically improved since the time of admission today is day 6. Patient was given a trial without BiPAP within an hour the patient's CO2 level azar significantly and patient seemed to be getting tired. Placed back on BiPAP treatment. Given his significant weight loss his severe COPD and pulmonary fibrosis I reviewed with the patient is family goals of care and if hospice treatment would be more appropriate. Patient's family reviewed the available data and understood the overall poor prognosis. Dr. Verdin also spoke with the patient 's family. I have explained to the patient's family that further treatment for this patient would not be possible in this facility as the next step would be a tracheostomy as he is not responding to BiPAP treatment. The patient's brother notes that the patient did not wish to be on a ventilator and would rather be home. The family members have not yet made up their mind on withdrawal of care and would like 24 hours to discuss this among their own family. Patient opens his eyes and tries to follow some commands however is not able to speak much. 03/23 Patient seen and examined, no acute overnight events, mental status practically unchanged. He is awake intermittently tries to pick at things, sometimes follows commands. Plan of care was reviewed with family yesterday I am yet to hear from them with regards to her final decision. I am awaiting the decision to decide if the patient can be transferred to a higher level of care which is needed for ongoing medical treatment versus palliative and hospice care. Chest x-ray was reviewed, shows slight worsening of the pneumothorax in the right side, progressed from 15% to 20%. 03/24 Patient seen examined no acute ovenight issues, mental status unchnaged , X Ray shows stable pneumothorax but worsening pneumonia. Plan of care reviewed with the family family wishes comfort care. All of them are present today to see their goodbyes. We will take the patient off BiPAP and initiate comfort care protocol Pertinent ROS: unable - Constitutional Vitals: Vital Signs Temp Pulse Resp BP Pulse Ox 97.6 F 71 12 127/90 97 03/24/18 08:01 03/24/18 09:55 03/24/18 11:01 03/24/18 11:01 03/24/18 11:01 Period Temp Pulse Resp BP Sys/Lemus Pulse Ox Last 24 Hr 97.6 F-98.6 F 71-89 12-24 108-140/74-93 97-100 Intake and Output 03/23/18 03/24/18 03/24/18 21:59 05:59 13:59 Intake Total 1280 / 1280 2093 / 2093 933 / 933 Output Total 700 / 700 1020 / 1020 45 / 45 Balance 580 / 580 1073 / 1073 888 / 888 Weight 102 lb 4.8 oz Intake & Output: Intake & Output 03/23/18 03/24/18 03/24/18 21:59 05:59 13:59 Intake Total 1280 / 1280 2093 / 2093 933 / 933 Output Total 700 / 700 1020 / 1020 45 / 45 Balance 580 / 580 1073 / 1073 888 / 888 Weight 102 lb 4.8 oz Intake: IV 1100 / 1100 1100 / 1100 933 / 933 Dextrose 5% in Water 1,000 ml @ 1000 / 1000 1000 / 1000 735 / 735 100 mls/hr IV .Q10H [facility] Rx#: [id number] Tube Feeding 60 / 60 993 / 993 GI Tube Flush 120 / 120 Output: Urine Catheter Amount 700 / 700 1020 / 1020 45 / 45 Other: Urine Appearance Clear Clear Clear Uretheral (Man) Clear Clear Clear Urine Color Dark Yellow Pale Pale Uretheral (Man) Pale Bright Yellow Bright Yellow Urine Odor Uretheral (Man) Normal Exam: Constitutional; Afebrile, drowsy, but wakes up to commands, Eyes- No icterus, , No periorbital swelling Neck- Midline trachea, supple Respiratory system: Air Entry unchanged, marlee prolonged exp phase, CVS- Rate rhythm regular, S1,S2 heard, no gallop, no rub. Abdomen- Soft nontender abdomen, no organomegaly, no tenderness, no guarding or rigidity, CHECK [employer]- AOOx1, moving all extremities, no gross focal deficit noted. Medical - PN: Obj Da - Labs CBC & Chem 7: 03/24/18 03:50 03/24/18 03:50 Labs: Abnormal Lab Results 03/24/18 03/24/18 03/23/18 03:50 03:50 03:50 RBC 4.32 L Hgb Hct RDW 15.1 H Plt Count 134 L Gran % 96.7 H Lymph % (Auto) 1.6 L [place] % (Auto) Gran # 10.1 H Lymph # (Auto) 0.2 L Sodium Chloride 91 L 94 L Carbon Dioxide 37 H 39 H Anion Gap 6.0 L 5.0 L Creatinine 0.3 L 0.3 L Glucose 149 H 138 H Uric Acid 1.3 L 1.3 L Calcium 8.3 L 8.2 L Phosphorus 2.4 L 2.1 L AST 47 H 48 H ALT 54 H 57 H Lactate Dehydrogenase 406 H 262 H Total Protein 5.6 L 5.4 L Albumin 1.9 L 2.1 L Albumin/Globulin Ratio 0.5 L 0.6 L 03/23/18 03/22/18 03/22/18 03:50 03:54 03:54 RBC 3.81 L Hgb 11.8 L Hct 36.2 L RDW 15.3 H 14.7 H Plt Count 134 L 118 L Gran % 97.6 H 93.4 H Lymph % (Auto) 1.5 L 3.6 L [place] % (Auto) 0.9 L Gran # 9.1 H Lymph # (Auto) 0.1 L 0.3 L Sodium 149 H Chloride Carbon Dioxide 32 H Anion Gap Creatinine 0.4 L Glucose 134 H Uric Acid 2.1 L Calcium Phosphorus 2.5 L AST ALT 44 H Lactate Dehydrogenase 270 H Total Protein Albumin 2.3 L Albumin/Globulin Ratio 0.6 L Meds: Medications Albuterol/Ipratropium (Duoneb) 3 ml NEB Q4HRT [facility] Last Admin: 03/24/18 11:05 Dose: Not Given Chlorhexidine Gluconate (Peridex) 15 ml SWABMOUTH BID [facility] Last Admin: 03/24/18 10:20 Dose: 15 ml Glucose Oxid/Lactoperoxid/Muramidas (Biotene) 1 each TOPICAL PRN PRN PRN Reason: Dry Mouth Metronidazole (Flagyl) 500 mg in 100 mls @ 100 mls/hr IV Q8H [facility] Last Infusion: 03/24/18 07:15 Dose: Infused Lorazepam (Ativan) 0 mg IV Q1HP PRN; Protocol PRN Reason: ANXIETY/SEDATION Morphine Sulfate (Morphine) 0 mg IV Q1HP PRN PRN Reason: Pain Morphine Sulfate (Morphine) 4 mg NEB Q4HP PRN PRN Reason: Shortness Of Breath Multivitamins (Thera-Plus) 5 ml PT DAILY [facility] Last Admin: 03/24/18 10:20 Dose: 5 ml Ondansetron HCl (Zofran) 4 mg IV Q4HP PRN PRN Reason: Nausea And Vomiting Sodium Chloride (Saline Flush) 10 ml IV Q8 [facility] Medical - PN: A/P - Time Spent With Patient Total time spent is greater than 50% in coordination of care (as documented) at patient's floor/unit and/or counseling patient: - Narrative A/P Narrative: A/P Acute hypoxic, HYpercapenic Respipratory failure, on NIPPV Pneumonia, possible aspiration Pulmonar fibrosis Acute copd exacerbation Severe Emphysema Severe malnutrition, bmi 15 Reflus disease Anemia Thrombocytopenia due to infection?, not on heparin, pllatlets stable. Hypernatremia- resolved Hemoconcentration, - resolved Plan d/c bipap comfort care protocol, morphine and ativan as needed family by the bed side. SCD for DVT prophylaxis DIet via peg comfort care Medical - PN: Qual - VTE Deep Vein Thrombosis/Pulmonary Embolism Present on Admission: No
[2018-03-24] MEDS ORDERED: 0.9 % SODIUM CHLORIDE 10 ML SYRINGE IV SCH ×2 (14:00→22:00)
[2018-03-24] MEDS ORDERED: LORazepam 2 MG/ML VIAL IV PRN (16:05)
--- NOTE | 2018-03-24 18:21 | Death Note ---
Discharge Sum: Prov - Provider Patient information: Note initiated : 03/24/18 at 6:15 pm Service Date, if different from initiated Date: [] Patient: Yoel Valdes 78 y/o M admitted on 03/18/18 for Short of Breath/ Respiratory Failure. Chief Complaint: [] Primary care physician: Barrington Zhang Consults: 03/17/18 Consult to Physician [CONS] Stat Comment: Consulting Provider: Francisco Sierra Reason For Exam: Physician to Consult Discharge Sum: Diag - PCOD Cause of : Chronic obstructive pulmonary disease Discharge Sum: Summary - Date and Time Date of admission: 03/18/18 01:07 Date of : 03/24/18 Time of : 17:26 - Summary Details: This is a 78-year-old male with severe history of copd, pulmonary fibrosis admitted to the hospital for acute hypoxic hypercapnic respiratory failure on BiPAP, right sided pneumothorax spontaneous. Patient has been managed with BiPAP duo nebs and steroids and antibiotics. Patient has not clinically improved since the time of admission today is day 8. Pt had received a PEG Tube to help with nutrition at the request of family. Patient was given a trial without BiPAP within an hour the patient's CO2 level azar significantly and patient seemed to be getting tired. Placed back on BiPAP treatment. Given his significant weight loss his severe COPD and pulmonary fibrosis I reviewed with the patient is family goals of care and if hospice treatment would be more appropriate. Patient's family reviewed the available data and understood the overall poor prognosis. Dr. Verdin also spoke with the patient 's family. I have explained to the patient's family that further treatment for this patient would not be possible in this facility as the next step would be a tracheostomy as he is not responding to BiPAP treatment. The patient's brother notes that the patient did not wish to be on a ventilator and would rather be home. The family reviewed the patients overall prognosis, and watched the patient deteriorate over the hospital course. Transfer to higher center offered but rejected the patient sister/ POA and rest of family members decided today to make the patient comfort care only The patient at 1726 on 03/24/18, family by bed side Cause of - COPD/ Emphysema Contributing factor, Pulmonary fibrosis - Additional Data Confirmation of as documented by pronouncing clinician: no pulse, no respirations, no heart sounds, pupils fixed and dilated Family: at bedside Attending/PCP notified?: Yes Attending physician: Francisco Sierra MD Was code activated?: No Autopsy requested?: No
[2018-03-24] MEDS ORDERED: metroNIDAZOLE 500 MG/100 ML BAG IV SCH (20:00)
[2018-03-24] MEDS ORDERED: CHLORHEXIDINE GLUCONATE 1 ML ORAL.SOL SWABMOUTH SCH (21:00)
[2018-03-25] MEDS ORDERED: MULTIVITAMINS,THERAPEUTIC 1 ML ORAL.SOL PT SCH (09:00)
== END 2018-03-24 20:25 | disposition expired | DRG 190 ==
LOC: ED 21:01 → ICU 03-18 01:07 → MEDSUR 03-24 15:45
PROVIDERS: ADMIT Internal Medicine; ATTEND Internal Medicine